=== PATIENT | female | born 1955 | race African-American/Black ===

== ENCOUNTER 2019-02-21 14:46 | Emergency (ER) | payer MEDICAID, OTHER ==
[~2019-02-21] VITALS: Ht 160 cm; Wt 89.4 kg
[2019-02-21 16:39] VITALS: BP 152/82
[2019-02-21] MEDS ORDERED: EPINEPHrine HCL 1 MG/1 ML AMP SC ONE (17:30)
== END 2019-02-21 17:47 | disposition home or self-care (01) ==
LOC: ER 14:46
DX: T78.40XA Allergy, unspecified, initial encounter (principal)
CPT/HCPCS: 96372; 99283; J0171

== ENCOUNTER 2019-05-03 11:55 | Inpatient (IN) | payer MEDICAID ==
[~2019-05-03] VITALS: Ht 160 cm; Wt 93.0 kg
[2019-05-03] MEDS ORDERED: methylPREDNISolone SOD SUCC 125 MG/2 ML VL ONE (12:18)
[2019-05-03] MEDS ORDERED: IPRATROPIUM BROM 0.5 MG/2.5ML INH SOL HHN ONE (12:30)
[2019-05-03] MEDS ORDERED: ALBUTEROL SULF 2.5 MG/0.5ML(0.5%) NEB SOLN HHN ONE (12:30)
[2019-05-03] MEDS ORDERED: ONDANSETRON HCL 4 MG/2 ML VIAL IV ONE (12:30)
[2019-05-03] MEDS ORDERED: methylPREDNISolone SOD SUCC 125 MG/2 ML VL IV ONE (12:45)
[2019-05-03 13:04] LABS: Basophils # (auto) 0.1 10 ^3/uL (0-0.2); Basophils % (auto) 1.4 % (0.0-2.0); Eosinophils # (auto) 0.1 10 ^3/uL (0-0.8); Eosinophils % (auto) 1.1 % (0.0-7.0); Hematocrit 46.3 % (36.0-46.0); Hemoglobin 15.4 g/dL (12.2-16.2); Lymphocytes # (auto) 1.3 10 ^3/uL (0.4-5.4); Lymphocytes % (auto) 19.8 % (10.0-50.0); Mean Corpuscular Hemoglobin 27.8 pg (28.0-32.0); Mean Corpuscular Hgb Conc. 33.4 g/dL (32.0-36.0); Mean Corpuscular Volume 83.2 fL (80.0-100.0); Monocytes # (auto) 0.7 10 ^3/uL (0-1.3); Monocytes % (auto) 11.3 % (0.0-12.0); Neutrophils # (auto) 4.4 10 ^3/uL (1.6-8.6); Neutrophils % (auto) 66.4 % (37.0-80.0); Nucleated Red Blood Cells % 0.1 %; Platelet Count (auto) 160 10^3/uL (140-450); Red Blood Cells 5.56 10^6/uL (4.0-5.20); Red Cell Distribution Width 15.4 % (11.8-14.3); White Blood Cell 6.6 10^3/uL (4.4-10.8)
[2019-05-03 13:24] LABS: Albumin 3.9 g/dL (3.4-5.0); Anion Gap 9 (5-15); BUN/Creatinine Ratio 16.8; Blood Urea Nitrogen 35 mg/dL (7-18); Calcium 9.6 mg/dL (8.5-10.1); Carbon Dioxide 25 mmol/L (21-32); Chloride 102 mmol/L (98-107); GFR African American 31 mL/min; GFR Non-African American 25 mL/min; Glucose 121 mg/dL (74-106); Magnesium 2.4 mg/dL (1.6-2.6); Potassium 3.8 mmol/L (3.5-5.1); Sodium 136 mmol/L (136-145)
[2019-05-03 13:27] LABS: Lactic Acid w/Reflex 2.6 mmol/L (0.4-2.0)
[2019-05-03 13:30] LABS: Alanine Aminotransferase 67 U/L (13-56); Alkaline Phosphatase 59 U/L (45-117); Aspartate Aminotransferase 45 U/L (15-37); Bilirubin, Total 0.8 mg/dL (0.2-1.0); Total Protein 8.3 g/dL (6.4-8.2)
[2019-05-03] MEDS ORDERED: cefTRIAXone 1GM/50ML D5W 50 ML IV ONE (13:45)
[2019-05-03] MEDS ORDERED: OSELTAMIVIR 75 MG CAP PO ONE (14:45)
[2019-05-03] MEDS ORDERED: NITROGLYCERIN 0.4 MG SL TAB SL PRN (14:45)
[2019-05-03] MEDS ORDERED: ACETAMINOPHEN 500 MG TAB PO PRN (14:45)
[2019-05-03] MEDS ORDERED: ALBUTEROL SULF 2.5 MG/0.5ML(0.5%) NEB SOLN NEB PRN (14:45)
[2019-05-03] MEDS ORDERED: traMADol HCL 50 MG TAB PO PRN (14:45)
[2019-05-03] MEDS ORDERED: MORPHINE SULF INJ 2 MG/ML SYRINGE 1ML IV PRN (14:45)
[2019-05-03] MEDS ORDERED: LACTULOSE 20Gm/30ML SOLN PO PRN (14:45)
[2019-05-03] MEDS ORDERED: PROMETHAZINE HCL 25 MG/ML 1ML IV PRN (14:45)
[2019-05-03] MEDS ORDERED: AMIODARONE HCL 150 MG in D5W 5% 100 ML IV ONE (15:15)
[2019-05-03] MEDS ORDERED: AMIODARONE HCL 900 MG in DEXTROSE 500 ML IV SCH ×2 (15:30→21:30)
[2019-05-03] MEDS: DOXYCYCLINE 100MG/250ML 250 ML IV SCH (15:54)
[2019-05-03] MEDS: SODIUM CHLORIDE 0.9% 1,000 ML IV SCH (16:12)
[2019-05-03] MEDS: FAMOTIDINE 20 MG TAB PO SCH (18:20)
[2019-05-03] MEDS: methylPREDNISolone SOD SUCC 40 MG/ML VL IV SCH (18:20)
[2019-05-03] MEDS: IPRATROPIUM BROM 0.5 MG/2.5ML INH SOL NEB SCH (18:22)
[2019-05-03] MEDS: ALBUTEROL SULF 2.5 MG/0.5ML(0.5%) NEB SOLN NEB SCH (18:22)
[2019-05-03] MEDS ORDERED: OSELTAMIVIR 75 MG CAP PO SCH (22:00)
[2019-05-03] MEDS: METOPROLOL TARTRATE 25 MG TAB PO SCH (22:37)
[2019-05-03] MEDS: ENOXAPARIN SOD 100 MG/1 ML SYRINGE SC SCH (22:37)
[2019-05-04] VITALS (10 sets, daily range): BP systolic 96–164; BP diastolic 46–93
[2019-05-04] MEDS: IPRATROPIUM BROM 0.5 MG/2.5ML INH SOL NEB SCH ×4 (00:07→18:26)
[2019-05-04] MEDS: ALBUTEROL SULF 2.5 MG/0.5ML(0.5%) NEB SOLN NEB SCH ×4 (00:07→18:26)
[2019-05-04] MEDS: methylPREDNISolone SOD SUCC 40 MG/ML VL IV SCH ×4 (00:42→17:53)
[2019-05-04 03:05] LABS: Urine Bacteria NONE SEEN /hpf (None Seen); Urine Blood Negative /uL (Negative); Urine Specific Gravity 1.011 (1.001-1.035); Urine WBC 1 /hpf (0 - 5)
[2019-05-04] MEDS ORDERED: INFLUENZA QUAD 2019-2020 0.5ml SYRG IM ONE (03:15)
[2019-05-04] MEDS ORDERED: PNEUMOCOCCAL VACC POLYS 25 MCG/0.5 ML VIAL IM ONE ×2 (03:15→03:45)
[2019-05-04 03:19] LABS: Barbiturate Scree,Urine NEGATIVE (NEGATIVE); Benzodiazephine Screen, Urine NEGATIVE (NEGATIVE); Cannabinoid Screen, Urine POSITIVE (NEGATIVE); Cocaine Screen, Urine NEGATIVE (NEGATIVE); Opiate Scree,Urine NEGATIVE (NEGATIVE); Phencyclidine Screen, Urine NEGATIVE (NEGATIVE)
[2019-05-04] MEDS ORDERED: ESCI10TA PO (03:21)
[2019-05-04] MEDS ORDERED: FLUT250M2 INH (03:21)
[2019-05-04 03:26] LABS: Amphetamine Screen, Urine NEGATIVE (NEGATIVE)
[2019-05-04] MEDS: DOXYCYCLINE 100MG/250ML 250 ML IV SCH ×2 (03:29→15:06)
[2019-05-04 06:12] LABS: BUN/Creatinine Ratio 18.9; Potassium 3.6 mmol/L (3.5-5.1)
[2019-05-04] MEDS: SODIUM CHLORIDE 0.9% 1,000 ML IV SCH ×2 (06:22→17:13)
[2019-05-04] MEDS: FAMOTIDINE 20 MG TAB PO SCH (09:04)
[2019-05-04] MEDS: ENOXAPARIN SOD 100 MG/1 ML SYRINGE SC SCH ×2 (09:08→22:06)
[2019-05-04] MEDS: METOPROLOL TARTRATE 25 MG TAB PO SCH ×2 (09:08→22:05)
[2019-05-04] MEDS ORDERED: ENOXAPARIN SOD 40 MG/0.4 ML SYRINGE SC SCH (10:00)
[2019-05-05] MEDS: methylPREDNISolone SOD SUCC 40 MG/ML VL IV SCH ×3 (00:05→12:00)
[2019-05-05] MEDS: IPRATROPIUM BROM 0.5 MG/2.5ML INH SOL NEB SCH ×3 (00:33→11:43)
[2019-05-05] MEDS: ALBUTEROL SULF 2.5 MG/0.5ML(0.5%) NEB SOLN NEB SCH ×3 (00:33→11:43)
[2019-05-05] MEDS: DOXYCYCLINE 100MG/250ML 250 ML IV SCH (02:49)
[2019-05-05 05:00] VITALS: BP 136/71
[2019-05-05 06:02] LABS: Basophils # (auto) 0 10 ^3/uL (0-0.2); Basophils % (auto) 0.2 % (0.0-2.0); Eosinophils # (auto) 0 10 ^3/uL (0-0.8); Hematocrit 39.8 % (36.0-46.0); Hemoglobin 13.5 g/dL (12.2-16.2); Lymphocytes # (auto) 0.7 10 ^3/uL (0.4-5.4); Lymphocytes % (auto) 9.2 % (10.0-50.0); Mean Corpuscular Hemoglobin 28.3 pg (28.0-32.0); Mean Corpuscular Hgb Conc. 33.8 g/dL (32.0-36.0); Mean Corpuscular Volume 83.7 fL (80.0-100.0); Monocytes # (auto) 0.7 10 ^3/uL (0-1.3); Monocytes % (auto) 8.6 % (0.0-12.0); Neutrophils # (auto) 6.3 10 ^3/uL (1.6-8.6); Nucleated Red Blood Cells % 0.2 %; Platelet Count (auto) 119 10^3/uL (140-450); Red Blood Cells 4.76 10^6/uL (4.0-5.20); Red Cell Distribution Width 15.1 % (11.8-14.3); White Blood Cell 7.7 10^3/uL (4.4-10.8)
[2019-05-05 06:27] LABS: Calcium 9.1 mg/dL (8.5-10.1); Potassium 4.4 mmol/L (3.5-5.1)
[2019-05-05 06:29] LABS: BUN/Creatinine Ratio 25.8
[2019-05-05] MEDS: SODIUM CHLORIDE 0.9% 1,000 ML IV SCH (06:35)
[2019-05-05 06:47] LABS: INR 1.05 (0.9-1.15); Partial Thromboplastin Time 27.6 sec (23.64-32.05)
[2019-05-05 08:00] VITALS: BP 140/72
[2019-05-05 08:43] VITALS: BP 121/70
[2019-05-05] MEDS: FAMOTIDINE 20 MG TAB PO SCH (09:19)
[2019-05-05] MEDS: METOPROLOL TARTRATE 25 MG TAB PO SCH (09:20)
[2019-05-05] MEDS: ENOXAPARIN SOD 100 MG/1 ML SYRINGE SC SCH (09:21)
[2019-05-05] MEDS ORDERED: PRED20TA2 PO (10:35)
[2019-05-05] MEDS ORDERED: MET25T PO (10:35)
[2019-05-05] MEDS ORDERED: ALB5IS NEB (10:35)
[2019-05-05] MEDS ORDERED: IPR002IS NEB (10:35)
[2019-05-05] MEDS ORDERED: APIX5TAB PO (10:35)
[2019-05-05] MEDS ORDERED: DOXY-346 PO (10:35)
[2019-05-05] MEDS ORDERED: FLUT250M2 INH (10:35)
[2019-05-05 11:06] VITALS: BP 121/70
[2019-05-05] MEDS ORDERED: INFLUENZA QUAD 2019-2020 0.5ml SYRG IM ONE (11:45)
[2019-05-05] MEDS ORDERED: PNEUMOCOCCAL VACC POLYS 25 MCG/0.5 ML VIAL IM ONE (11:45)
[2019-05-05 12:43] VITALS: BP 125/68
== END 2019-05-05 13:45 | disposition home or self-care (01) | DRG 201 ==
LOC: ER 11:55 → TELE 11:56 → TELE-EAST 05-04 01:16
PROVIDERS: ADMIT Internal Medicine; ATTEND Internal Medicine
DX: I48.0 Paroxysmal atrial fibrillation (principal); N17.0 Acute kidney failure with tubular necrosis; J20.9 Acute bronchitis, unspecified; J45.902 Unspecified asthma with status asthmaticus; E86.0 Dehydration; I12.9 Hypertensive chronic kidney disease with stage 1 through stage 4 chronic kidney disease, or unspecified chronic kidney disease; N18.3 Chronic kidney disease, stage 3 (moderate); M06.9 Rheumatoid arthritis, unspecified; Z86.73 Personal history of transient ischemic attack (TIA), and cerebral infarction without residual deficits; Z90.49 Acquired absence of other specified parts of digestive tract; Z82.49 Family history of ischemic heart disease and other diseases of the circulatory system; Z89.429 Acquired absence of other toe(s), unspecified side
CPT/HCPCS: 36415; 71045; 76775; 80048; 80053; 80307; 81001; 82550; 83605; 83735; 83880; 84443; 84484; 85025; 85610; 85652; 85730; 87040; 87804; 93005; 93306; 94640; 94644; 96365; 96375; 97163; 99291; G0378; J0696; J2405; J3490; J7060

== ENCOUNTER 2024-07-28 08:03 | Inpatient (IN) | payer MEDICARE, MEDICAID ==
[2024-07-28] VITALS (15 sets, daily range): BP systolic 152–167; BP diastolic 84–110; PULSE 108–153; RESP 16–22; TEMP 97.9–98.1; O2SAT 93–99
[~2024-07-28] VITALS: Ht 160 cm; Wt 103.5 kg
[~2024-07-28 08:03] MED LIST: ALB5IS NEB; APIX5TAB PO; DOXY-346 PO; ESCI10TA PO; FLUT250M2 INH; IPR002IS NEB; MET25T PO; PRED20TA2 PO
--- NOTE | 2024-07-28 08:10 | ECG ---
[facility] Test Date: 2024-07-28 Test Time: 08:06:01 Pat Name: PATY MALDONADO Department: ED Room: 0262D Gender: F [employer]: BHARATH : 1955 Requested By: LYNN MARIO Order Number: [id number] Reading MD: Tad Bagley Measurements Intervals [place] Rate: 120 P: 0 ME: 0 QRS: 19 QRSD: 80 T: 97 QT: 346 QTc: 489 Interpretive Statements Atrial fibrillation Abnormal inferior Q waves Nonspecific T abnormalities, lateral leads Borderline prolonged QT interval Electronically Signed On 07-31-2024 20:53:40 PDT by Tad Bagley Please click the below link to view image of tracing.
[2024-07-28] MEDS: IPRATROPIUM BROM 0.5 MG/2.5ML INH SOL NEB ONE ×2 (08:36→13:33)
[2024-07-28] MEDS: ALBUTEROL SULF 2.5 MG/0.5ML(0.5%) NEB SOLN NEB ONE ×2 (08:36→13:33)
[2024-07-28] MEDS: ALBUTEROL SULF 2.5 MG/0.5ML(0.5%) NEB SOLN ONE (08:37)
[2024-07-28] MEDS: IPRATROPIUM BROM 0.5 MG/2.5ML INH SOL ONE (08:37)
--- NOTE | 2024-07-28 08:51 | ED.PDOC ---
SOB-HPI HPI Comments 68 year old female presents to the ED via EMS with a chief complaint of shortness of breath onset few days. Patient states she has been experiencing cough for a few days, noticed it was worsening last night, woke up this morning experiencing shortness of breath, diarrhea, cough. Upon EMS arrival, patient's O2 sat was low 90s on RA, was given breathing treatment in route. Upon ED arrival, patient is using accessory muscle to breath, was given another br eathing treatment. PMHx asthma, CVA, HTN. Denies headache, dizziness, chest pain, nausea, vomiting, abdominal pain, fevers, chills. No other symptoms or modifying factors present at this time. 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 History: Denies all BOOK SEWER Hx Family History Family History: Reviewed,noncontributory to illness, No family hx of Cancer, No family hx of DM, No family hx of Heart hien, No family hx of HTN, No family hx ofKidney hien, No family hx of Liver hien Social History Smoker: Non-Smoker Alcohol: Denies ETOH Use Drugs: Denies Drug Use Lives In: Home Constitutional: denies: chills, diaphoresis, fatigue, fever, malaise, sweats, weakness, others EENTM: denies: blurred vision, double vision, ear bleeding, ear discharge, ear drainage, ear pain, ear ringing, eye pain, eye redness, hearing loss, mouth pain, mouth swelling, nasal discharge, nose bleeding, nose congestion, nose pain, photophobia, tearing, throat pain, throat swelling, voice changes, others Respiratory: reports: cough, shortness of breath; denies: hemoptysis, orthopnea, SOB at rest, SOB with excertion, stridor, wheezing, others Cardiovascular: denies: chest pain, dizzy spells, diaphoresis, Dyspnea on exe rtion, edema, irregular heart beat, left arm pain, lightheadedness, palpitations, PND, syncope, others Gastrointestinal: reports: diarrhea, others; denies: abdomen distended, abdominal pain, blood streaked bowels, constipated, dysphagia, difficulty swallowing, hematemesis, melena, nausea, poor appetite, poor fluid intake, rectal bleeding, rectal pain, vomiting Genitourinary: denies: abnormal vagina bleeding, burning, dyspareunia, dysuria, flank pain, frequency, hematuria, incontinence, pain, , vagina discharge, urgency, others Neurological: denies: dizziness, fainting, headache, left sided numbness, left sided weakness, numbness, paresthesia, pre-existing deficit, right sided numbness, right sided weakness, seizure, speech problems, tingling, tremors, weakness, others Musculoskeletal: denies: back pain, gout, joint pain, joint swelling, muscle pain, muscle stiffness, neck pain, others Integumetry: denies: bruises, change in color, change in hair/nails, dryness, laceration, lesions, lumps, rash, wounds, others Allergic/Immunocompromised: denies: Difficulty Healing, Frequent Infections, Hives, Itching, others Hematologic/Lymphatic: denies: anemia, blood clots, easy bleeding, easy bruisin g, swollen glands, others Endocrine: denies: excessive hunger, excessive sweating, excessive thirst, excessive urination, flushing, intolerance to cold, intolerance to heat, unexplained weight gain, unexplained weight loss, others Psychiatric: denies: anxiety, bipolar disorder, depression, hopeless, panic disorder, schizophrenia, sleepless, suicidal, others All Other Systems: Reviewed and Negative Physical Exam General Appearance: Moderate Distress, Normal HEENT: Normal ENT Inspection, Pharynx Normal, TMs Normal Neck: Full Range of Motion, Non-Tender, Normal, Normal Inspection Respiratory: Chest Non-Tender, Wheezing (bilateral expiratory ) Cardiovascular: No Edema, No JVD, No Murmur, No Gallop, Normal Peripheral Pulses, Regular Rate/Rhythm Breast Exam: Deferred Gastrointestinal: No Organomegaly, Non Tender, No Pulsatile Mass, Normal Bowel Sounds, Soft Genitalia: Deferred Pelvic: Deferred Rectal: Deferred Extremities: No calf tenderness, Normal capillary refill, Normal inspection, Normal range of motion, Non-tender, No pedal edema Musculoskeletal : Apperance: Normal Neurologic: Alert, seasoner hand II-XII nml as Tested, No Motor Deficits, Normal Affect, Normal Mood, No Sensory Deficits Cerebellar Function: Normal Reflexes: Normal Skin: Dry, Normal Color, Warm Lymphatic: No Adenopathy Was a procedure done? Was a procedure done?: No Differential Dx Differential Diagnosis: Asthma, CHF, COPD, Pneumonia X-Ray, Labs, Meds, VS Vital Signs Date Time Temp Pulse Resp B/P (MAP) Pulse Ox O2 Delivery O2 Flow Rate FiO2 07/28/24 10:52 109 21 161/107 (125) 95 07/28/24 10:35 120 17 161/107 07/28/24 10:21 116 161/107 Nasal BiPAP Mask 30 07/28/24 09:56 148 24 128/85 07/28/24 08:49 152 159/90 Nasal BiPAP Mask 30 07/28/24 08:44 98 Nasal Cannula* 4 36 07/28/24 08:37 26 98 Nasal Cannula* 2 28 07/28/24 08:33 138 99 Nasal Cannula* 4 36 07/28/24 08:33 98.1 116 31 159/90 (113) 97 98.1 07/28/24 08:10 98.1 125 24 128/65 (86) 100 98.1 07/28/24 08:10 24 99 Nasal Cannula* 2 28 07/28/24 08:06 120 Lab Test 07/28/24 10:15 07/28/24 09:22 07/28/24 08:35 Range/Units Blood Gas Specimen Type Arterial Blood Gas Sample Site Left radial Blood Gas Patient Temperature 37.0 Arterial Blood Date Drawn [id number] Arterial Blood pH 7.396 7.350-7.450 Arterial Blood Partial Pressure CO2 53.3 H 32.0-45.0 mmHg Arterial Blood Partial Pressure O2 90.4 83.0-108.0 mmHg Arterial Blood HCO3 32.0 H 21.0-28.0 mmol/L Arterial Blood Oxygen Saturation 95.3 94.0-98.0 % Arterial Blood Base Excess 5.8 H -2.0-3.0 mmol/L Arterial Blood Oxyhemoglobin 93.6 L 94.0-98.0 % Arterial Blood Carboxyhemoglobin 1.5 0.5-1.5 % Arterial Blood Methemoglobin 0.3 0.0-1.5 % Eamon Test Yes Blood Gas Total Hemoglobin 13.30 12.0-16.0 g/dL Blood Gas Set Respiration Rate 12.0 Blood Gas Modality Mask - bipap Blood Gas Spontaneous Rate 24 FiO2 % 30.0 Blood Gas EPAP 5 Blood Gas IPAP 12 Troponin I High Sensitivity 101 *H 104 *H </=34 ng/L White Blood Count 4.9 4.4-10.8 10^3/uL Red Blood Count 4.68 4.0-5.20 10^6/uL Hemoglobin 14.0 12.2-16.2 g/dL Hematocrit 41.9 36.0-46.0 % Mean Corpuscular Volume 89.4 80.0-100.0 fL Mean Corpuscular Hemoglobin 29.8 28.0-32.0 pg Mean Corpuscular Hemoglobin Concent 33.3 32.0-36.0 g/dL Red Cell Distribution Width 17.1 H 11.8-14.3 % Platelet Count 165 140-450 10^3/uL Mean Platelet Volume 10.8 6.9-10.8 fL Neutrophils (%) (Auto) 85.5 H 37.0-80.0 % Lymphocytes (%) (Auto) 5.4 L 10.0-50.0 % Monocytes (%) (Auto) 9.1 0.0-12.0 % Eosinophils (%) (Auto) 0.0 0.0-7.0 % Basophils (%) (Auto) 0.0 0.0-2.0 % Neutrophils # (Auto) 4.2 1.6-8.6 10 ^3/uL Lymphocytes # (Auto) 0.3 L 0.4-5.4 10 ^3/uL Monocytes # (Auto) 0.4 0-1.3 10 ^3/uL Eosinophils # (Auto) 0 0-0.8 10 ^3/uL Basophils # (Auto) 0 0-0.2 10 ^3/uL Nucleated Red Blood Cells 0.0 % Sodium Level 142 136-145 mmol/L Potassium Level 3.4 L 3.5-5.1 mmol/L Chloride Level 100 98-107 mmol/L Carbon Dioxide Level 34 H 20-31 mmol/L Anion Gap 8 5-15 Blood Urea Nitrogen 22 9-23 mg/dL Creatinine 1.62 H 0.550-1.02 mg/dL Glomerular Filtration Rate Calc 34 >90 mL/min BUN/Creatinine Ratio 13.6 10.0-20.0 Serum Glucose 139 H 74-106 mg/dL Lactic Acid Level 1.5 0.4-2.0 mmol/L Calcium Level 10.8 H 8.7-10.4 mg/dL B-Type Natriuretic Peptide 164.07 0-100 pg/mL Current Medications Medications (Trade) Dose Ordered Sig/Adam Route Start Time Stop Time Status Last Admin Albuterol (Ventolin Medneb) 5 mg ONCE ONCE NEB 07/28/24 08:30 07/28/24 08:31 DC 07/28/24 08:36 Ipratropium [place] (Atrovent Medneb) 1 mg ONCE ONCE NEB 07/28/24 08:30 07/28/24 08:31 DC 07/28/24 08:36 Morphine Sulfate 4 mg ONCE ONCE IV 07/28/24 10:00 07/28/24 10:01 DC 07/28/24 09:56 Ondansetron HCl (Zofran) 4 mg ONCE ONCE IV 07/28/24 10:00 07/28/24 10:01 DC 07/28/24 09:55 [place] [id number] Ph: [phone] DIAGNOSTIC IMAGING Diagnostic Imaging Report : [id number] Signed PATIENT: PATY MALDONADO ACCT: [id number] UNIT: [id number] : 1955 LOC: ER ROOM / BED: / AGE / SEX: 68 / F ADM STATUS: REG ER SERVICE 5 ORDERING PHYSICIAN: LYNN SANTO MD PROCEDURE(s): CXRP - CHEST PORTABLE REASON: sob ORDER NUMBER(s): [id number], ACCESSION NUMBER(s): [id number] CHEST RADIOGRAPH Indication: sob Technique: Single frontal view of the chest was obtained Comparison: None FINDINGS: Lines and Tubes: None Lungs: No focal consolidation. Pleura: No effusion. No pneumothorax. Cardiomediastinal contours: Unremarkable Bones: No acute osseous abnormality. IMPRESSION: 1. No acute cardiopulmonary disease. ATED BY: ISIS TRIPLETT MD DICTATED DATE/TIME: 07/28/24958 SIGNED BY: ISIS TRIPLETT MD SIGNED DATE/TIME: 07/28/24958 CC: Time of 1ST Reevaluation: 09:00 Reevaluation 1ST: Unchanged Patient Education/Counseling: Diagnosis, Treatment, Prognosis Family Education/Counseling: No Family Present Sepsis Sepsis Reasesment Focused Exam Orders: Laboratory Tests 07/28/24 08:35: Lactic Acid Level 1.5 Departure 1 Departure Time of Disposition: 11:16 (Patient presented with acute shortness of breath concerning for acute on chronic COPD Exacerbation, Pneumonia, ACS, CHF, Pneumothorax. Less likely PE, Dissection. Data: 1. I ordered and reviewed the result of at least 3 labs including a CBC, BMP, and Troponin. 2. I independently interpreted the following tests: Chest X-ray shows benign chest .Risk:This patient has a high risk of morbidity due to further diagnostic testing or treatment and may suffer from respiratory or cardiac etiology . Workup reveals a likely COPD Exacerbation and patient should be admitted for further workup. and possible expert consultation.) Impression: Primary Impression: Acute and chronic respiratory failure Additional Impressions: COPD exacerbation Shortness of breath Disposition: ADMITTED INPATIENT Admit to: Tele Condition: Guarded Critical Care Note Critical Care Time?: Yes Critical care comment: Shortness of breath Authorized and Performed by: Lynn Santo MD Total critical care time: Approximately _39 minutes Due to a high probability of clinically significant, life threatening deterioration, the patient required my highest level of preparedness to intervene emergently and I personally spent this critical care time directly and personally managing the patient. This critical care time included obtaining a history; examining the patient; pulse oximetry; ordering and review of studies; arranging urgent treatment with development of a management plan; evaluation of patient's response to treatment; frequent reassessment; and, discussions with other providers. This critical care time was performed to assess and manage the high probability of imminent, life-threatening deterioration that could result in multi-organ failure. It was exclusive of separately billable procedures and treating other patients and teaching time. Please see my other sections and the rest of the note for further information on patient assessment and treatment. Stability Stability form required: No Heart Score Heart Score: Heart Score Response (Comments) Value History Slightly Suspicious 0 EKG Repolarization Disturb 1 Age >65 2 Risk Factors >3 or Hx ASHD 2 Troponin >3 x's Normal limit 2 Total 7 I personally scribed for LYNN SANTO MD ([email or web address]) on 07/28/24 at 08:51. Electronically submitted by Azul Martinez ([email or web address]). I personally scribed for LYNN SANTO MD ([email or web address]) on 07/28/24 at 10:18. Electronically submitted by Azul Martinez ([email or web address]). LYNN SANTO MD Jul 28, 2024 08:51
[2024-07-28 08:52] LABS: Basophils # (auto) 0 10 ^3/uL (0-0.2); Eosinophils # (auto) 0 10 ^3/uL (0-0.8); Hematocrit 41.9 % (36.0-46.0); Lymphocytes # (auto) 0.3 10 ^3/uL (0.4-5.4); Lymphocytes % (auto) 5.4 % (10.0-50.0); Mean Corpuscular Hemoglobin 29.8 pg (28.0-32.0); Mean Corpuscular Hgb Conc. 33.3 g/dL (32.0-36.0); Mean Corpuscular Volume 89.4 fL (80.0-100.0); Monocytes # (auto) 0.4 10 ^3/uL (0-1.3); Monocytes % (auto) 9.1 % (0.0-12.0); Neutrophils # (auto) 4.2 10 ^3/uL (1.6-8.6); Neutrophils % (auto) 85.5 % (37.0-80.0); Platelet Count (auto) 165 10^3/uL (140-450); Red Blood Cells 4.68 10^6/uL (4.0-5.20); Red Cell Distribution Width 17.1 % (11.8-14.3); White Blood Cell 4.9 10^3/uL (4.4-10.8)
[2024-07-28 09:06] LABS: Chloride 100 mmol/L (98-107); Sodium 142 mmol/L (136-145)
[2024-07-28 09:07] LABS: Anion Gap 8 (5-15); Carbon Dioxide 34 mmol/L (20-31); Potassium 3.4 mmol/L (3.5-5.1)
[2024-07-28 09:09] LABS: Calcium 10.8 mg/dL (8.7-10.4)
[2024-07-28 09:12] LABS: BUN/Creatinine Ratio 13.6 (10.0-20.0); Blood Urea Nitrogen 22 mg/dL (9-23)
[2024-07-28 09:13] LABS: Glucose 139 mg/dL (74-106)
[2024-07-28] MEDS: ONDANSETRON HCL 4 MG/2 ML VIAL IV ONE (09:55)
[2024-07-28] MEDS: MORPHINE SULFATE 4 MG/ML SYR/VIAL IV ONE (09:56)
--- NOTE | 2024-07-28 10:01 | DVH ---
CHEST RADIOGRAPH Indication: sob Technique: Single frontal view of the chest was obtained Comparison: None FINDINGS: Lines and Tubes: None Lungs: No focal consolidation. Pleura: No effusion. No pneumothorax. Cardiomediastinal contours: Unremarkable Bones: No acute osseous abnormality. IMPRESSION: 1. No acute cardiopulmonary disease.
[2024-07-28 10:20] LABS: Base Excess 5.8 mmol/L (-2.0-3.0)
[2024-07-28] MEDS: methylPREDNISolone SOD SUCC 125 MG/2 ML VL IV ONE (11:36)
[2024-07-28] MEDS: AZITHROMYCIN 250 MG TAB PO ONE (11:36)
[2024-07-28] MEDS: AMIODARONE 360mg/200mL PREMIX 200 ML IV ONE (11:37)
[2024-07-28] MEDS: AMIODARONE BOLUS KIT 100 ML IV ONE (11:37)
[2024-07-28] MEDS: FUROSEMIDE 40 MG/4 ML VIAL IV ONE (12:45)
[2024-07-28] MEDS: MAGNESIUM SULFATE 1GM/100ML 100 ML IV SCH (12:45)
[2024-07-28] MEDS ORDERED: FURO40TA4 PO (13:29)
[2024-07-28] MEDS ORDERED: ESCI1TAB37 PO (13:29)
[2024-07-28] MEDS ORDERED: AMIO200T13 PO (13:29)
[2024-07-28] MEDS ORDERED: UPAD15TA PO (13:29)
[2024-07-28] MEDS ORDERED: ATOR-47 PO (13:29)
[2024-07-28] MEDS ORDERED: MET50T PO (13:29)
[2024-07-28] MEDS ORDERED: ACETAMINOPHEN 325 MG TAB PO PRN (13:30)
[2024-07-28] MEDS ORDERED: NITROGLYCERIN 0.4 MG SL TAB SL PRN (13:30)
[2024-07-28] MEDS ORDERED: MORPHINE SULFATE INJ 2 MG/ml SYRG IV PRN (13:30)
[2024-07-28] MEDS ORDERED: ONDANSETRON HCL 4 MG/2 ML VIAL IV PRN (13:30)
[2024-07-28] MEDS ORDERED: DOCUSATE SOD 100 MG CAP PO PRN (13:30)
[2024-07-28] MEDS: SODIUM CHLOR 0.9% PF (SALINE LOCK) 10ML VIAL/SYR IV SCH (13:47)
[2024-07-28] MEDS ORDERED: DEXTROSE (50%) 50ML SYRG IV PRN (14:00)
--- NOTE | 2024-07-28 14:03 | DVHHP2 ---
History of Present Illness Reason for Visit: Shortness of breath History of Present Illness Mell Salinas is a 68-year-old female with past medial history of COPD, home oxygen, asthma, atrial fibrillation, CVA December 2023, hypertension, and hyperlipidemia, who came to the hospital for shortness of breath. Patient had a stroke in December of 2023. She states since then she has been hospitalized multiple times. She states 3 times in the last couple of months for difficulty breathing. Patient states she does follow outpatient with a solutions architect consultant, and she is compliant with her medications, but she has not been able to get her breathing better. On assessment patient has audible rales, with shortness of breath, difficulty with speaking, and accessory muscle use. 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) Smoke: No ALCOHOL: none Drugs: None Lives: with Family Domestic Violence: Neg Review of Systems Constitutional: No: Fever, Chills, Sweats, Weakness, Malaise, Other Eyes: No: Pain, Vision change, Conjunctivae inflammation, Eyelid inflammation, Other, Redness ENT: No: Ear pain, Ear discharge, Nose pain, Nose discharge, Nose congestion, Mouth pain, Mouth swelling, Throat pain, Throat swelling, Other Respiratory: Cough, Shortness of breath, SOB with excertion, Wheezing; No: Dry, Hemoptysis, Pleuritic Pain, Sputum, Wheezing, Other Cardiovascular: No: Chest Pain, Palpitations, Orthopnea, Paroxysmal Noc. Dyspnea, Edema, Lt Headedness, Other Gastrointestinal: No: Nausea, Vomiting, Abdominal Pain, Diarrhea, Constipation, Melena, Hematochezia, Other Genitourinary: No Dysuria, No Frequency, No Incontinence, No Hematuria, No Retention, No Other Musculoskeletal: No: other, neck pain, shoulder pain, arm pain, back pain, hand pain, leg pain, foot pain Skin: No: Rash, Lesions, Jaundice, Bruising, Other Neurological: No: Weakness, Numbness, Incoordination, Change in speech, Confusion, Seizures, Other Allergies: Coded Allergies: NO KNOWN ALLERGIES (Unverified , 02/21/19) Medications Current Medications Medications Dose Ordered Sig/Adam Route Start Time Stop Time Status Last Admin Dose Admin Sodium Chloride 10 ml Q8HR IV 07/28/24 14:00 Acetaminophen/ Hydrocodone Bitart 1 tab Q4HP PRN PO 07/28/24 13:30 Ondansetron HCl 4 mg Q4HP PRN IV 07/28/24 13:30 Docusate Sodium 100 mg BIDPRN PRN PO 07/28/24 13:30 Acetaminophen 650 mg Q6HP PRN PO 07/28/24 13:30 Nitroglycerin 0.4 mg Q5MINP PRN SL 07/28/24 13:30 Morphine Sulfate 2 mg Q30M PRN IV 07/28/24 13:30 Apixaban 5 mg BID PO 07/28/24 22:00 UNV Patient Own Medication 1 puff BID INH 07/28/24 22:00 UNV Amiodarone HCl 200 mg DAILY PO 07/29/24 10:00 Metoprolol Tartrate 50 mg BID PO 07/28/24 22:00 UNV Patient Own Medication 1 tab HS PO 07/28/24 22:00 UNV Patient Own Medication 1 tab DAILY PO 07/29/24 10:00 UNV Exam Vital Signs Vital Signs Date Time Temp Pulse Resp B/P (MAP) Pulse Ox O2 Delivery O2 Flow Rate FiO2 07/28/24 13:33 108 22 97 07/28/24 13:33 Nasal Cannula 2.0 07/28/24 13:33 28 07/28/24 12:48 98.4 168/91 (116) 98.4 General Appearance: Alert, Oriented X3, Cooperative, moderate distress HEENT: Atraumatic, PERRLA Respiratory: Other (Rales bilateral upper lobes, diminished breath sounds bilateral lower) Cardiovascular: Other (atrial fibrillation with RVR) Abdominal: Normal bowel sounds, Soft, No tenderness, No hepatospenomegaly Extremities: No clubbing, No cyanosis, No edema, Normal pulses, No tenderness/swelling Skin: No rashes, No breakdown, No significant lesion Neuro: Normal gait, Normal speech, Strength at 5/5 X4 ext, Normal tone Psych/Mental Status: Mental status NL, Mood NL Labs/Xrays Labs Test 07/28/24 11:09 07/28/24 10:15 07/28/24 08:35 Range/Units Troponin I High Sensitivity 123 *H </=34 ng/L Blood Gas Specimen Type Arterial Blood Gas Sample Site Left radial Blood Gas Patient Temperature 37.0 Arterial Blood Date Drawn [id number] Arterial Blood pH 7.396 7.350-7.450 Arterial Blood Partial Pressure CO2 53.3 H 32.0-45.0 mmHg Arterial Blood Partial Pressure O2 90.4 83.0-108.0 mmHg Arterial Blood HCO3 32.0 H 21.0-28.0 mmol/L Arterial Blood Oxygen Saturation 95.3 94.0-98.0 % Arterial Blood Base Excess 5.8 H -2.0-3.0 mmol/L Arterial Blood Oxyhemoglobin 93.6 L 94.0-98.0 % Arterial Blood Carboxyhemoglobin 1.5 0.5-1.5 % Arterial Blood Methemoglobin 0.3 0.0-1.5 % Eamon Test Yes Blood Gas Total Hemoglobin 13.30 12.0-16.0 g/dL Blood Gas Set Respiration Rate 12.0 Blood Gas Modality Mask - bipap Blood Gas Spontaneous Rate 24 FiO2 % 30.0 Blood Gas EPAP 5 Blood Gas IPAP 12 White Blood Count 4.9 4.4-10.8 10^3/uL Red Blood Count 4.68 4.0-5.20 10^6/uL Hemoglobin 14.0 12.2-16.2 g/dL Hematocrit 41.9 36.0-46.0 % Mean Corpuscular Volume 89.4 80.0-100.0 fL Mean Corpuscular Hemoglobin 29.8 28.0-32.0 pg Mean Corpuscular Hemoglobin Concent 33.3 32.0-36.0 g/dL Red Cell Distribution Width 17.1 H 11.8-14.3 % Platelet Count 165 140-450 10^3/uL Mean Platelet Volume 10.8 6.9-10.8 fL Neutrophils (%) (Auto) 85.5 H 37.0-80.0 % Lymphocytes (%) (Auto) 5.4 L 10.0-50.0 % Monocytes (%) (Auto) 9.1 0.0-12.0 % Eosinophils (%) (Auto) 0.0 0.0-7.0 % Basophils (%) (Auto) 0.0 0.0-2.0 % Neutrophils # (Auto) 4.2 1.6-8.6 10 ^3/uL Lymphocytes # (Auto) 0.3 L 0.4-5.4 10 ^3/uL Monocytes # (Auto) 0.4 0-1.3 10 ^3/uL Eosinophils # (Auto) 0 0-0.8 10 ^3/uL Basophils # (Auto) 0 0-0.2 10 ^3/uL Nucleated Red Blood Cells 0.0 % Sodium Level 142 136-145 mmol/L Potassium Level 3.4 L 3.5-5.1 mmol/L Chloride Level 100 98-107 mmol/L Carbon Dioxide Level 34 H 20-31 mmol/L Anion Gap 8 5-15 Blood Urea Nitrogen 22 9-23 mg/dL Creatinine 1.62 H 0.550-1.02 mg/dL Glomerular Filtration Rate Calc 34 >90 mL/min BUN/Creatinine Ratio 13.6 10.0-20.0 Serum Glucose 139 H 74-106 mg/dL Lactic Acid Level 1.5 0.4-2.0 mmol/L Calcium Level 10.8 H 8.7-10.4 mg/dL B-Type Natriuretic Peptide 164.07 0-100 pg/mL CHEST RADIOGRAPH FINDINGS: Lines and Tubes: None Lungs: No focal consolidation. Pleura: No effusion. No pneumothorax. Cardiomediastinal contours: Unremarkable Bones: No acute osseous abnormality. IMPRESSION: 1. No acute cardiopulmonary disease. Assessment/Plan Assessment/Plan Assessment: Acute hypoxic respiratory failure, COPD exacerbation, Elevated troponin, Hyperglycemia, Atrial fibrillation with RVR, Hyperlipidemia, Hypertension, Plan: Admit to EDER, BiPAP as needed, Supplemental oxygen as needed, IV Lasix, Breathing treatments around the clock, IV steroids, IV antibiotics, IV amiodarone, Home medications reconciled, Plan discussed with: Patient My Orders Orders - CATALINA GARZA Procedure Category Date Status Time Admit ADMIT 07/28/24 Transmitted 13:21 Code Status CODE 07/28/24 Transmitted 13:21 Sodium Chloride Lock PHA 07/28/24 In Process (Saline Lock Ns) 14:00 Hydrocodone-Acet PHA 07/28/24 In Process 5/325mg Tab ([place] 13:30 Ondansetron Hcl PHA 07/28/24 Logged (Zofran) 13:30 Docusate Sodium PHA 07/28/24 In Process Capsule (Colace 13:30 Complete Blood Count LAB 07/29/24 Verified 04:00 Comprehensive LAB 07/29/24 Verified Metabolic Panel 04:00 Condition: Critical ANDREAS 07/28/24 In Process 13:21 Acetaminophen Tablet PHA 07/28/24 In Process (Tylenol Tablet) 13:30 Nitroglycerin PHA 07/28/24 In Process Sublingual (Ntrostat 13:30 Morphine Sulfate PHA 07/28/24 Logged Injection 13:30 Stat Ekg For Chest ANDREAS 07/28/24 In Process Pain 13:21 Notify Md Of Changes [facility] 07/28/24 In Process From Base 13:21 Psychological Operations For [facility] 07/28/24 In Process 24 Hours 13:21 Emergency Dysrhythmia ANDREAS 07/28/24 In Process Protocol 13:21 Rhythm Strips Once [facility] 07/28/24 In Process Every Shift 13:21 Oxygen By Nasal RT 07/28/24 Transmitted Cannula 13:21 Apixaban (Eliquis) PHA 07/28/24 Logged 22:00 (NF) PHA 07/28/24 Logged Fluticasone-Salmeterol 22:00 Amiodarone Tablet PHA 07/29/24 Logged (Cordarone Tablet) 10:00 Metoprolol Tartrate PHA 07/28/24 Logged Tablet (Lopressor Ta 22:00 (Nf) Atorvastatin PHA 07/28/24 Logged Calcium 22:00 (Nf) Escitalopram PHA 07/29/24 Logged Oxalate 10:00 Albuterol Medneb PHA 07/28/24 Transmitted (Ventolin Medneb) 14:00 Ipratropium Medneb PHA 07/28/24 Transmitted (Atrovent Medneb) 14:00 Methylprednisolone PHA 07/28/24 Transmitted Sod Succ (Solu Medrol 22:00 Azithromycin 500mg/ PHA 07/29/24 Transmitted 250ml (Zithromax 50 10:00 Ceftriaxone Ivpb PHA 07/29/24 Transmitted Rocephin 09:00 Ceftriaxone Ivpb PHA 07/28/24 Transmitted Rocephin 13:45 Date of Service: Jul 28, 2024 Billing Provider: CATALINA GARZA Common Visit Codes: [id number] INP/OBS CARE (HIGH) CATALINA GARZA Jul 28, 2024 14:03
[2024-07-28] MEDS: cefTRIAXone 1GM/50ML D5W 50 ML IV ONE (14:10)
[2024-07-28] MEDS: cloNIDine HCL 0.1 MG TAB PO ONE (16:28)
[2024-07-28] MEDS: InsuLIN REG 1unit/0.01ml Soln (100units/ml) SC SCH ×2 (17:32→22:04)
[2024-07-28] MEDS: ACCU-CHEK COMFORT CURVE STRIP VI SCH (17:33)
[2024-07-28] MEDS: AMIODARONE 360mg/200mL PREMIX 200 ML IV SCH (17:33)
[2024-07-28] MEDS: ALBUTEROL SULF 2.5 MG/0.5ML(0.5%) NEB SOLN NEB SCH (17:40)
[2024-07-28] MEDS: IPRATROPIUM BROM 0.5 MG/2.5ML INH SOL NEB SCH (17:40)
[2024-07-28] MEDS: hydrALAZINE HCL 20 MG/ML VL IV PRN (18:03)
[2024-07-28] MEDS: methylPREDNISolone SOD SUCC 40 MG/ML VL IV SCH (21:51)
[2024-07-28] MEDS: APIXABAN 5 MG TAB PO SCH (21:54)
[2024-07-28] MEDS: ATORVASTATIN 20 MG TAB PO SCH (21:54)
[2024-07-28] MEDS: HYDROcodone-ACET 5/325MG TAB PO PRN (21:55)
[2024-07-28] MEDS: METOPROLOL TARTRATE 50 MG TAB PO SCH (21:57)
[2024-07-28] MEDS: BUDESONIDE (INHALATION) 0.5 MG/2 ML NEB NEB SCH (22:15)
[2024-07-29] VITALS (37 sets, daily range): BP systolic 102–176; BP diastolic 52–107; PULSE 77–133; RESP 14–24; TEMP 97.1–98.5; O2SAT 88–99
[2024-07-29 05:17] LABS: Basophils # (auto) 0 10 ^3/uL (0-0.2); Basophils % (auto) 0.1 % (0.0-2.0); Eosinophils # (auto) 0 10 ^3/uL (0-0.8); Hematocrit 38.9 % (36.0-46.0); Hemoglobin 12.7 g/dL (12.2-16.2); Lymphocytes # (auto) 0.2 10 ^3/uL (0.4-5.4); Lymphocytes % (auto) 3.1 % (10.0-50.0); Mean Corpuscular Hemoglobin 29.2 pg (28.0-32.0); Mean Corpuscular Hgb Conc. 32.6 g/dL (32.0-36.0); Mean Corpuscular Volume 89.5 fL (80.0-100.0); Monocytes # (auto) 0.5 10 ^3/uL (0-1.3); Neutrophils # (auto) 5.9 10 ^3/uL (1.6-8.6); Neutrophils % (auto) 88.8 % (37.0-80.0); Nucleated Red Blood Cells % 0.1 %; Platelet Count (auto) 150 10^3/uL (140-450); Red Blood Cells 4.35 10^6/uL (4.0-5.20); Red Cell Distribution Width 17.2 % (11.8-14.3); White Blood Cell 6.6 10^3/uL (4.4-10.8)
[2024-07-29 05:35] LABS: Alanine Aminotransferase 36 U/L (7-40); Albumin 4.6 g/dL (3.2-4.8); Alkaline Phosphatase 55 U/L (46-116); Anion Gap 8 (5-15); BUN/Creatinine Ratio 13.5 (10.0-20.0); Bilirubin, Total 0.4 mg/dL (0.2-1.0); Blood Urea Nitrogen 21 mg/dL (9-23); Calcium 10.3 mg/dL (8.7-10.4); Sodium 138 mmol/L (136-145)
[2024-07-29 05:36] LABS: Aspartate Aminotransferase 43 U/L (13-40); Carbon Dioxide 34 mmol/L (20-31); Chloride 96 mmol/L (98-107); Glucose 137 mg/dL (74-106); Potassium 3.3 mmol/L (3.5-5.1)
[2024-07-29] MEDS: cefTRIAXone 1GM/50ML D5W 50 ML IV SCH (09:55)
[2024-07-29] MEDS: AMIODARONE HCL 200 MG TAB PO SCH (09:56)
[2024-07-29] MEDS: AZITHROMYCIN 500MG/ 250ML 250 ML IV SCH (09:56)
[2024-07-29] MEDS: CITALOPRAM HYDROBR 20 MG TAB PO SCH (10:00)
[2024-07-29] MEDS: MORPHINE SULFATE INJ 2 MG/ml SYRG IV ONE (11:58)
[2024-07-29] MEDS: MORPHINE SULFATE 4 MG/ML SYR/VIAL IV ONE (12:32)
[2024-07-29] MEDS: MORPHINE SULFATE 4 MG/ML SYR/VIAL ONE (12:32)
--- NOTE | 2024-07-29 14:28 | DVHPN2 ---
Progress Note Date Seen: Jul 29, 2024 Medical Necessity Reason Pt with a Central, PICC or Fol: Yes The following are medically ne: Luis Catheter Reason for luis catheter: Strict I&O Subjective Patient reports: No new complaints Review of Systems: HEENT:Normal, CVS:Normal, RESPIRATORY:Normal, GI:Normal, :Normal, MSK:Normal, NEURO:Normal Objective vital signs Vital Sign Date Time Temp Pulse Resp B/P (MAP) Pulse Ox O2 Delivery O2 Flow Rate FiO2 07/29/24 14:10 77 140/106 99 Facial BiPAP Mask 30 07/29/24 12:32 20 07/29/24 12:00 2 07/29/24 04:00 98.3 98.3 Total Intake and Output 07/28/24 07/28/24 07/29/24 15:00 23:00 07:00 Intake Total 483.32 ml 166.29 ml 583.28 ml Output Total 775 ml Balance 483.32 ml 166.29 ml -191.72 ml medications Current Medications Medications Dose Ordered Sig/Adam Route Start Time Stop Time Status Last Admin Dose Admin Sodium Chloride 10 ml Q8HR IV 07/28/24 14:00 07/29/24 06:13 10 ML Acetaminophen/ Hydrocodone Bitart 1 tab Q4HP PRN PO 07/28/24 13:30 07/29/24 08:53 1 TAB Ondansetron HCl 4 mg Q4HP PRN IV 07/28/24 13:30 Docusate Sodium 100 mg BIDPRN PRN PO 07/28/24 13:30 Acetaminophen 650 mg Q6HP PRN PO 07/28/24 13:30 Nitroglycerin 0.4 mg Q5MINP PRN SL 07/28/24 13:30 Morphine Sulfate 2 mg Q30M PRN IV 07/28/24 13:30 Apixaban 5 mg BID PO 07/28/24 22:00 07/29/24 09:57 5 MG Budesonide 0.5 mg BID NEB 07/28/24 22:00 07/29/24 06:12 0.5 MG Amiodarone HCl 200 mg DAILY PO 07/29/24 10:00 07/29/24 09:56 200 MG Metoprolol Tartrate 50 mg BID PO 07/28/24 22:00 07/29/24 09:56 50 MG Atorvastatin Calcium 80 mg HS PO 07/28/24 22:00 07/28/24 21:54 80 MG Citalopram Hydrobromide 40 mg DAILY PO 07/29/24 10:00 07/29/24 10:00 40 MG Albuterol 2.5 mg Q4HWA NEB 07/28/24 14:00 07/29/24 14:09 2.5 MG Ipratropium [place] 0.5 mg Q4HWA [facility] 07/28/24 14:00 07/29/24 14:09 0.5 MG Methylprednisolone Sodium Succinate 40 mg BID IV 07/28/24 22:00 07/29/24 09:55 40 MG Azithromycin 250 ml @ 125 mls/hr DAILY IV 07/29/24 10:00 07/29/24 09:56 125 MLS/HR Ceftriaxone Sodium 50 ml @ 100 mls/hr DAILY@09 IV 07/29/24 09:00 07/29/24 09:55 100 MLS/HR Diagnostic Test (Pha) 1 strip ACHS 07/28/24 17:00 07/29/24 11:30 1 STRIP Insulin Human Regular HS SC 07/28/24 22:00 07/28/24 22:04 2 UNITS Insulin Human Regular AC SC 07/28/24 17:00 07/29/24 12:28 3 UNITS Dextrose 50 ml UD PRN IV 07/28/24 14:00 Hydralazine HCl 10 mg Q6HP PRN IV 07/28/24 16:00 07/28/24 18:03 10 MG Albuterol 2.5 mg Q4HPRN PRN NEB 07/29/24 12:45 Ipratropium [place] 0.5 mg Q4HPRN PRN NEB 07/29/24 12:45 Examination: GENERAL:Normal, HEENT:Normal, NECK:Normal, LUNGS:Normal, LUNGS:Abnormal (on bipap), CVS:Normal, ABDOMEN:Normal, MSK:Normal, SKIN:Normal, NEURO:Normal, :Normal laboratory and microbiology Laboratory Tests 07/29/24 04:59 Test 07/29/24 04:59 Range/Units Serum Glucose 137 H 74-106 mg/dL Microbiology Date/Time Source Procedure Growth Status 07/28/24 08:46 Blood Blood Culture - Preliminary NO GROWTH AFTER 24 HOURS OF INCUBATION. Resulted Problem List/Assessment/Plan Problem List/Assessment/Plan #1 acute on chronic resp failure: cont bipap, wean as tolerated, monitor abg #2 ?pneumonia- gram positive/neg: iv antibiotics #3 htn #4 dm: ssi #5 a fib with rvr with secondary hypercoagulable state: on amiodarone, xarelto #6 morbid obesity #7 acute on chronic systolic/diastolic heart failure: lasix iv #8 ckd stage 3 Plan discussed with: Patient My Orders My Orders Orders - KEILA FORD MD Procedure Category Date Status Time Albuterol Medneb PHA 07/29/24 In Process (Ventolin Medneb) 12:45 Ipratropium Medneb PHA 07/29/24 In Process (Atrovent Medneb) 12:45 Urinalysis LAB 07/29/24 Uncollected 14:21 Echo 2d Mode Cardiac US 07/29/24 Verified DOP 14:21 Amiodarone Tablet PHA 07/29/24 Verified (Cordarone Tablet) 14:30 Amiodarone Tablet PHA 07/30/24 Verified (Cordarone Tablet) 10:00 Potassium Chl Daniel PHA 07/29/24 Verified KCL 14:30 Basic Metabolic Panel LAB 07/30/24 Verified 06:00 Complete Blood Count LAB 07/30/24 Verified 06:00 Chest Portable XY 07/30/24 Verified 06:00 Critical Care Time (mins): 41 (critical care time excluding procedures is 41 mins) Date of Service: Jul 29, 2024 Billing Provider: KEILA FORD MD Common Visit Codes: [id number] CARE 30-74 MIN KEILA FORD MD Jul 29, 2024 14:28
[2024-07-29] MEDS: AMIODARONE HCL 200 MG TAB PO ONE (14:30)
[2024-07-29] MEDS: FUROSEMIDE 20 MG/2 ML VIAL IV ONE ×2 (14:43→20:29)
[2024-07-29] MEDS ORDERED: MORPHINE SULFATE 4 MG/ML SYR/VIAL IV PRN (14:45)
[2024-07-29] MEDS: POTASSIUM CHLORIDE 40 MEQ, LIDOCAINE 1% (LOCAL ANESTH.) 4 ML in SODIUM CHL 0.9% 250 ML IV ONE (15:26)
[2024-07-29] MEDS: methylPREDNISolone SOD SUCC 125 MG/2 ML VL IV ONE (23:47)
[2024-07-30] VITALS (88 sets, daily range): BP systolic 91–177; BP diastolic 56–104; PULSE 88–138; RESP 13–29; TEMP 97.2–98.4; O2SAT 92–100
[2024-07-30] MEDS: IPRATROPIUM BROM 0.5 MG/2.5ML INH SOL NEB SCH (02:09)
[2024-07-30] MEDS: LEVALBUTEROL HCL 1.25 MG/3 ML NEB NEB SCH (02:09)
[2024-07-30 05:02] LABS: Basophils # (auto) 0 10 ^3/uL (0-0.2); Eosinophils # (auto) 0 10 ^3/uL (0-0.8); Hemoglobin 12.9 g/dL (12.2-16.2); Lymphocytes # (auto) 0.1 10 ^3/uL (0.4-5.4); Lymphocytes % (auto) 1.6 % (10.0-50.0); Mean Corpuscular Hemoglobin 29.5 pg (28.0-32.0); Mean Corpuscular Volume 89.3 fL (80.0-100.0); Monocytes # (auto) 0.6 10 ^3/uL (0-1.3); Monocytes % (auto) 8.1 % (0.0-12.0); Neutrophils # (auto) 6.3 10 ^3/uL (1.6-8.6); Neutrophils % (auto) 90.3 % (37.0-80.0); Nucleated Red Blood Cells % 0.1 %; Platelet Count (auto) 146 10^3/uL (140-450); Red Blood Cells 4.37 10^6/uL (4.0-5.20); Red Cell Distribution Width 16.8 % (11.8-14.3)
[2024-07-30 05:13] LABS: Potassium 3.6 mmol/L (3.5-5.1); Sodium 139 mmol/L (136-145)
[2024-07-30 05:14] LABS: Anion Gap 6 (5-15)
[2024-07-30 05:18] LABS: Carbon Dioxide 35 mmol/L (20-31); Chloride 98 mmol/L (98-107)
[2024-07-30 05:20] LABS: BUN/Creatinine Ratio 12.8 (10.0-20.0); Blood Urea Nitrogen 20 mg/dL (9-23)
[2024-07-30 05:21] LABS: Glucose 125 mg/dL (74-106)
--- NOTE | 2024-07-30 08:15 | DVH ---
EXAM: XR Chest, 1 View CLINICAL INDICATION: COPD TECHNIQUE: Frontal view of the chest. COMPARISON: XY CHEST PORTABLE on DOS: 07/28/24 FINDINGS: LUNGS AND PLEURAL SPACES: Unremarkable. No consolidation. No pneumothorax. HEART: Cardiomegaly without overt failure. MEDIASTINUM: Unremarkable. Normal mediastinal contour. BONES/JOINTS: Unremarkable. No acute fracture. OTHER FINDINGS: . IMPRESSION: Cardiomegaly without overt failure.
[2024-07-30] MEDS: FUROSEMIDE 20 MG/2 ML VIAL IV SCH (09:30)
[2024-07-30] MEDS: AMIODARONE HCL 200 MG TAB PO SCH (11:36)
--- NOTE | 2024-07-30 11:36 | DVHSR ---
APPROVED REPORT EXAM: Two-dimensional and M-mode echocardiogram with Doppler and color Doppler. Blood Pressure: 140/106 mmHg INDICATION CHF RISK FACTORS Obesity: Height: 5'3", Weight: 250 DIMENSIONS LVDd4.3 (3.8-5.7cm)LA (2D)4.2 (1.9-4.0cm)Aortic Root3.1 (2.0-3.7cm) LVDs3.6 (2.5-4.0cm)LA (MM) (1.9-4.0cm)Aortic Cusp Exc1.5 (1.5-2.0cm) EF (%) 30.0 (55-70%)Rt. Atrium4.5 (1.9-4.0cm)Asc. Aorta cm IVSd1.3 (0.7-1.1cm)RV (D) (1.8-2.4cm) PWd1.3 (0.7-1.1cm) Mitral Valve MitralMitral Stenosis E wave1.08m/sMV Mean GR.mmHg E/A ratio0.02D MVAcm2 Aortic Valve Aortic ValveAortic Stenosis V10.91m/Joseph Mean GR.3mmHg V21.34m/Joseph Peak GR.7mmHg LVOT Diameter1.8 (1.8-2.4cm)Doppler AVA1.73cm2 Pulmonic Valve V20.74m/s Tricuspid Valve TR Velocity2.73m/s [id number] Other Information Technically limited study due to body habitus and patient position. Conclusion lvef 35-40% by visual estimate mild to moderate LVH mild mitral regurg aortic sclerosis left atrium enlarged moderate
--- NOTE | 2024-07-30 12:34 | DVHPN2 ---
Progress Note Date Seen: Jul 30, 2024 Medical Necessity Reason Pt with a Central, PICC or Fol: Yes The following are medically ne: Luis Catheter Reason for luis catheter: Strict I&O Subjective Patient reports: No new complaints Review of Systems: HEENT:Normal, CVS:Normal, RESPIRATORY:Normal, GI:Normal, :Normal, MSK:Normal, NEURO:Normal Objective vital signs Vital Sign Date Time Temp Pulse Resp B/P (MAP) Pulse Ox O2 Delivery O2 Flow Rate FiO2 07/30/24 12:00 18 95 Bi-Pap+ 30 30 07/30/24 11:37 138 118/68 07/30/24 06:41 2.0 07/30/24 04:45 98.3 98.3 Total Intake and Output 07/29/24 07/29/24 07/30/24 15:00 23:00 07:00 Intake Total 716.62 ml 694.0 ml Output Total 1200 ml 1000 ml Balance 716.62 ml -506.0 ml -1000 ml medications Current Medications Medications Dose Ordered Sig/Adam Route Start Time Stop Time Status Last Admin Dose Admin Sodium Chloride 10 ml Q8HR IV 07/28/24 14:00 07/30/24 06:23 10 ML Acetaminophen/ Hydrocodone Bitart 1 tab Q4HP PRN PO 07/28/24 13:30 07/29/24 21:05 1 TAB Ondansetron HCl 4 mg Q4HP PRN IV 07/28/24 13:30 Docusate Sodium 100 mg BIDPRN PRN PO 07/28/24 13:30 Acetaminophen 650 mg Q6HP PRN PO 07/28/24 13:30 Nitroglycerin 0.4 mg Q5MINP PRN SL 07/28/24 13:30 Apixaban 5 mg BID PO 07/28/24 22:00 07/30/24 11:37 5 MG Budesonide 0.5 mg BID NEB 07/28/24 22:00 07/30/24 06:41 0.5 MG Metoprolol Tartrate 50 mg BID PO 07/28/24 22:00 07/30/24 11:37 50 MG Atorvastatin Calcium 80 mg HS PO 07/28/24 22:00 07/29/24 21:48 80 MG Citalopram Hydrobromide 40 mg DAILY PO 07/29/24 10:00 07/30/24 11:37 40 MG Methylprednisolone Sodium Succinate 40 mg BID IV 07/28/24 22:00 07/30/24 09:30 40 MG Azithromycin 250 ml @ 125 mls/hr DAILY IV 07/29/24 10:00 07/29/24 09:56 125 MLS/HR Ceftriaxone Sodium 50 ml @ 100 mls/hr DAILY@09 IV 07/29/24 09:00 07/30/24 09:30 100 MLS/HR Diagnostic Test (Pha) 1 strip ACHS 07/28/24 17:00 07/30/24 06:27 1 STRIP Insulin Human Regular HS SC 07/28/24 22:00 07/29/24 23:01 2 UNITS Insulin Human Regular AC SC 07/28/24 17:00 07/30/24 06:29 2 UNITS Dextrose 50 ml UD PRN IV 07/28/24 14:00 Hydralazine HCl 10 mg Q6HP PRN IV 07/28/24 16:00 07/28/24 18:03 10 MG Albuterol 2.5 mg Q4HPRN PRN NEB 07/29/24 12:45 Ipratropium [place] 0.5 mg Q4HPRN PRN NEB 07/29/24 12:45 Amiodarone HCl 200 mg DAILY PO 07/30/24 10:00 07/30/24 11:36 200 MG Furosemide 20 mg DAILY IV 07/30/24 10:00 07/30/24 09:30 20 MG Morphine Sulfate 2 mg Q30M PRN IV 07/29/24 14:45 Ipratropium [place] 0.5 mg Q4HR NEB 07/30/24 02:00 07/30/24 09:22 0.5 MG Levalbuterol HCl 1.25 mg Q4HR NEB 07/30/24 02:00 07/30/24 09:22 1.25 MG Examination: GENERAL:Normal, HEENT:Normal, NECK:Normal, LUNGS:Normal, LUNGS:Abnormal (on bipap), CVS:Normal, ABDOMEN:Normal, MSK:Normal, SKIN:Normal, NEURO:Normal, :Normal laboratory and microbiology Laboratory Tests 07/30/24 04:30 Test 07/30/24 04:30 Range/Units Serum Glucose 125 H 74-106 mg/dL Microbiology Date/Time Source Procedure Growth Status 07/28/24 08:46 Blood Blood Culture - Preliminary NO GROWTH AFTER 48 HOURS OF INCUBATION. Resulted Problem List/Assessment/Plan Problem List/Assessment/Plan #1 acute on chronic resp failure: cont bipap, wean as tolerated, monitor abg #2 ?pneumonia- gram positive/neg: iv antibiotics #3 htn #4 dm: ssi #5 a fib with rvr with secondary hypercoagulable state: on amiodarone, xarelto, lopressor #6 morbid obesity #7 acute on chronic systolic/diastolic heart failure: lasix iv #8 ckd stage 3 Plan discussed with: Patient My Orders My Orders Orders - KEILA FORD MD Procedure Category Date Status Time Albuterol Medneb PHA 07/29/24 In Process (Ventolin Medneb) 12:45 Ipratropium Medneb PHA 07/29/24 In Process (Atrovent Medneb) 12:45 Urinalysis LAB 07/30/24 Logged 11:00 Echo 2d Mode Cardiac US 07/29/24 Resulted DOP 14:21 Amiodarone Tablet PHA 07/30/24 In Process (Cordarone Tablet) 10:00 Chest Portable XY 07/30/24 Resulted 06:00 Furosemide Injection PHA 07/30/24 In Process (Lasix Injection) 10:00 Mrsa Screen SUZAN 07/30/24 In Process 04:23 Insert Midline ORDERS 07/30/24 Transmitted 10:02 Urine Bacterial SUZAN 07/30/24 In Process Culture 11:03 Furosemide Injection PHA 07/30/24 Verified (Lasix Injection) 12:30 Cardiac DIET 07/30/24 Verified Diet-2gna,Lofat,Lochol Lunch Basic Metabolic Panel LAB 07/31/24 Verified 06:00 Complete Blood Count LAB 07/31/24 Verified 06:00 Magnesium LAB 07/31/24 Verified 05:00 Chest Portable XY 07/31/24 Verified 06:00 Critical Care Time (mins): 37 (critical care time excluding procedures was 37 mins) Date of Service: Jul 30, 2024 Billing Provider: KEILA FORD MD Common Visit Codes: [id number] CARE 30-74 MIN KEILA FORD MD Jul 30, 2024 12:34
[2024-07-30] MEDS: FUROSEMIDE 20 MG/2 ML VIAL ONE (12:46)
[2024-07-30] MEDS: FUROSEMIDE 20 MG/2 ML VIAL IV ONE (12:46)
[2024-07-30 12:55] LABS: Urine Bacteria FEW /hpf (None Seen); Urine Blood 2+ /uL (Negative); Urine Clarity Clear (Clear); Urine Color Colorless (Yellow); Urine Hyaline Cast FEW /lpf (0 - 2); Urine Mucus FEW (None Seen); Urine Protein, UAD Negative (Negative); Urine Specific Gravity 1.007 (1.001-1.035); Urine Squamous Epithelial Cell FEW /hpf (<5); Urine Urobilinogen Normal (Negative); Urine WBC 3 /HPF (0-5); Urine pH 5.5 (5.0-9.0)
[2024-07-30 13:26] LABS: Base Excess 8.7 mmol/L (-2.0-3.0)
[2024-07-31] VITALS (107 sets, daily range): BP systolic 103–161; BP diastolic 61–124; PULSE 85–140; RESP 14–32; TEMP 97.3–97.8; O2SAT 93–100
[2024-07-31 04:45] LABS: Basophils # (auto) 0 10 ^3/uL (0-0.2); Basophils % (auto) 0.1 % (0.0-2.0); Eosinophils # (auto) 0 10 ^3/uL (0-0.8); Hematocrit 39.9 % (36.0-46.0); Lymphocytes # (auto) 0.1 10 ^3/uL (0.4-5.4); Lymphocytes % (auto) 1.2 % (10.0-50.0); Mean Corpuscular Hemoglobin 29.1 pg (28.0-32.0); Mean Corpuscular Hgb Conc. 32.5 g/dL (32.0-36.0); Mean Corpuscular Volume 89.7 fL (80.0-100.0); Monocytes # (auto) 0.6 10 ^3/uL (0-1.3); Monocytes % (auto) 7.6 % (0.0-12.0); Neutrophils # (auto) 7.2 10 ^3/uL (1.6-8.6); Neutrophils % (auto) 91.1 % (37.0-80.0); Nucleated Red Blood Cells % 0.1 %; Platelet Count (auto) 145 10^3/uL (140-450); Red Blood Cells 4.45 10^6/uL (4.0-5.20); Red Cell Distribution Width 17.8 % (11.8-14.3); White Blood Cell 7.9 10^3/uL (4.4-10.8)
[2024-07-31 04:55] LABS: Chloride 99 mmol/L (98-107); Potassium 3.6 mmol/L (3.5-5.1); Sodium 142 mmol/L (136-145)
[2024-07-31 04:56] LABS: Anion Gap 6 (5-15); Calcium 10.1 mg/dL (8.7-10.4)
[2024-07-31 04:58] LABS: Carbon Dioxide 37 mmol/L (20-31)
[2024-07-31 05:01] LABS: BUN/Creatinine Ratio 17.5 (10.0-20.0)
[2024-07-31 05:03] LABS: Blood Urea Nitrogen 24 mg/dL (9-23); Glucose 140 mg/dL (74-106)
[2024-07-31 05:26] LABS: Magnesium 2.6 mg/dL (1.6-2.6)
--- NOTE | 2024-07-31 05:30 | DVH ---
EXAM: XR Chest, 1 View CLINICAL INDICATION: COPD TECHNIQUE: Frontal view of the chest. COMPARISON: XY CHEST PORTABLE on DOS: 07/30/24, XY CHEST PORTABLE on DOS: 07/28/24 FINDINGS: LUNGS AND PLEURAL SPACES: Unremarkable. No consolidation. No pneumothorax. HEART: Unremarkable. No cardiomegaly. MEDIASTINUM: Unremarkable. Normal mediastinal contour. BONES/JOINTS: Unremarkable. No acute fracture. OTHER FINDINGS: . IMPRESSION: No acute cardiopulmonary process.
--- NOTE | 2024-07-31 15:04 | DVHPN2 ---
Progress Note Date Seen: Jul 31, 2024 Medical Necessity Reason Pt with a Central, PICC or Fol: Yes The following are medically ne: Luis Catheter Reason for luis catheter: Strict I&O Subjective Patient reports: No new complaints Review of Systems: HEENT:Normal, CVS:Normal, RESPIRATORY:Normal, GI:Normal, :Normal, MSK:Normal, NEURO:Normal Objective vital signs Vital Sign Date Time Temp Pulse Resp B/P (MAP) Pulse Ox O2 Delivery O2 Flow Rate FiO2 07/31/24 14:09 100 20 100 07/31/24 14:00 146/95 07/31/24 12:06 Facial BiPAP Mask 30 07/31/24 12:01 97.7 97.7 07/31/24 12:00 2 Total Intake and Output 07/30/24 07/30/24 07/31/24 15:00 23:00 07:00 Intake Total 0 ml 50 ml 240 ml Output Total 1300 ml 150 ml Balance 0 ml -1250 ml 90 ml medications Current Medications Medications Dose Ordered Sig/Adam Route Start Time Stop Time Status Last Admin Dose Admin Sodium Chloride 10 ml Q8HR IV 07/28/24 14:00 07/31/24 05:33 10 ML Acetaminophen/ Hydrocodone Bitart 1 tab Q4HP PRN PO 07/28/24 13:30 07/29/24 21:05 1 TAB Ondansetron HCl 4 mg Q4HP PRN IV 07/28/24 13:30 Docusate Sodium 100 mg BIDPRN PRN PO 07/28/24 13:30 Acetaminophen 650 mg Q6HP PRN PO 07/28/24 13:30 Nitroglycerin 0.4 mg Q5MINP PRN SL 07/28/24 13:30 Apixaban 5 mg BID PO 07/28/24 22:00 07/31/24 09:31 5 MG Budesonide 0.5 mg BID NEB 07/28/24 22:00 07/31/24 06:18 0.5 MG Metoprolol Tartrate 50 mg BID PO 07/28/24 22:00 07/31/24 09:30 50 MG Atorvastatin Calcium 80 mg HS PO 07/28/24 22:00 07/30/24 22:58 80 MG Citalopram Hydrobromide 40 mg DAILY PO 07/29/24 10:00 07/31/24 09:40 40 MG Methylprednisolone Sodium Succinate 40 mg BID IV 07/28/24 22:00 07/31/24 09:21 40 MG Azithromycin 250 ml @ 125 mls/hr DAILY IV 07/29/24 10:00 07/31/24 10:33 125 MLS/HR Ceftriaxone Sodium 50 ml @ 100 mls/hr DAILY@09 IV 07/29/24 09:00 07/31/24 09:16 100 MLS/HR Diagnostic Test (Pha) 1 strip ACHS 07/28/24 17:00 07/31/24 11:11 1 STRIP Insulin Human Regular HS SC 07/28/24 22:00 07/30/24 22:25 4 UNITS Insulin Human Regular AC SC 07/28/24 17:00 07/31/24 11:36 6 UNITS Dextrose 50 ml UD PRN IV 07/28/24 14:00 Hydralazine HCl 10 mg Q6HP PRN IV 07/28/24 16:00 07/28/24 18:03 10 MG Albuterol 2.5 mg Q4HPRN PRN NEB 07/29/24 12:45 Ipratropium [place] 0.5 mg Q4HPRN PRN NEB 07/29/24 12:45 Amiodarone HCl 200 mg DAILY PO 07/30/24 10:00 07/31/24 09:32 200 MG Furosemide 20 mg DAILY IV 07/30/24 10:00 07/31/24 09:15 20 MG Morphine Sulfate 2 mg Q30M PRN IV 07/29/24 14:45 Ipratropium [place] 0.5 mg Q4HR NEB 07/30/24 02:00 07/31/24 14:00 0.5 MG Levalbuterol HCl 1.25 mg Q4HR NEB 07/30/24 02:00 07/31/24 13:59 1.25 MG Examination: GENERAL:Normal, HEENT:Normal, NECK:Normal, LUNGS:Normal, LUNGS:Abnormal (on bipap/ oxygen, rhonchi), CVS:Normal, ABDOMEN:Normal, MSK:Normal, SKIN:Normal, NEURO:Normal, :Normal laboratory and microbiology Laboratory Tests 07/31/24 03:34 Test 07/31/24 03:34 Range/Units Serum Glucose 140 H 74-106 mg/dL Microbiology Date/Time Source Procedure Growth Status 07/30/24 04:23 Nose MRSA Screen - Final Complete 07/28/24 08:46 Blood Blood Culture - Preliminary NO GROWTH AFTER 72 HOURS OF INCUBATION. Resulted Problem List/Assessment/Plan Problem List/Assessment/Plan #1 acute on chronic resp failure: cont bipap, wean as tolerated, monitor abg #2 ?pneumonia- gram positive/neg: iv antibiotics #3 htn #4 dm: ssi #5 a fib with rvr with secondary hypercoagulable state: on amiodarone, xarelto, lopressor #6 morbid obesity #7 acute on chronic systolic/diastolic heart failure: lasix iv #8 ckd stage 3 advance care planning- full code- time spent 19 mins Plan discussed with: Patient My Orders My Orders Orders - KEILA FORD MD Procedure Category Date Status Time Furosemide Injection PHA 07/31/24 Verified (Lasix Injection) 22:00 Dietary Evaluation Review Comments: 1) Ensure Enlive 240ml TID (ordered per ONS protocol) 2) MVI 1 tab daily 3) Continue current POC Expected Outcomes/Goals: To meet >75% estimated needs Fu 3-5 days Date of Service: Jul 31, 2024 Billing Provider: KEILA FORD MD Common Visit Codes: [id number] INP/OBS CARE(HIGH) Secondary Visit Codes: [id number] CARE PLAN 30 MINUTES KEILA FORD MD Jul 31, 2024 15:04
[2024-07-31] MEDS: FUROSEMIDE 20 MG/2 ML VIAL IV ONE (15:31)
[2024-07-31] MEDS: AMIODARONE 360mg/200mL PREMIX 200 ML IV ONE (17:39)
[2024-07-31] MEDS: METOPROLOL TARTRATE 50 MG TAB PO SCH (21:42)
[2024-07-31] MEDS: AMIODARONE 360mg/200mL PREMIX 200 ML IV SCH (23:16)
[2024-07-31] MEDS: TEMAZEPAM 15 MG CAP PO ONE (23:25)
[2024-08-01] VITALS (100 sets, daily range): BP systolic 103–168; BP diastolic 37–110; PULSE 92–141; RESP 16–27; TEMP 97.1–98.6; O2SAT 92–100
[2024-08-01 05:28] LABS: Anion Gap 6 (5-15); Potassium 3.8 mmol/L (3.5-5.1); Sodium 140 mmol/L (136-145)
[2024-08-01 05:29] LABS: Calcium 9.7 mg/dL (8.7-10.4)
[2024-08-01 05:34] LABS: BUN/Creatinine Ratio 19.8 (10.0-20.0)
[2024-08-01 05:51] LABS: Blood Urea Nitrogen 26 mg/dL (9-23); Chloride 94 mmol/L (98-107); Glucose 136 mg/dL (74-106)
[2024-08-01 05:52] LABS: Carbon Dioxide 40 mmol/L (20-31)
[2024-08-01] MEDS: FUROSEMIDE 20 MG/2 ML VIAL IV SCH (06:02)
--- NOTE | 2024-08-01 07:32 | ECG ---
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
--- NOTE | 2024-08-01 07:34 | ECG ---
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
[2024-08-01 11:11] LABS: Basophils # (auto) 0 10 ^3/uL (0-0.2); Basophils % (auto) 0.4 % (0.0-2.0); Eosinophils # (auto) 0 10 ^3/uL (0-0.8); Eosinophils % (auto) 0.1 % (0.0-7.0); Hematocrit 38.8 % (36.0-46.0); Hemoglobin 12.7 g/dL (12.2-16.2); Lymphocytes # (auto) 0.1 10 ^3/uL (0.4-5.4); Lymphocytes % (auto) 1.5 % (10.0-50.0); Mean Corpuscular Hemoglobin 29.4 pg (28.0-32.0); Mean Corpuscular Hgb Conc. 32.8 g/dL (32.0-36.0); Mean Corpuscular Volume 89.5 fL (80.0-100.0); Monocytes # (auto) 0.7 10 ^3/uL (0-1.3); Monocytes % (auto) 7.2 % (0.0-12.0); Neutrophils # (auto) 8.6 10 ^3/uL (1.6-8.6); Neutrophils % (auto) 90.8 % (37.0-80.0); Nucleated Red Blood Cells % 0.2 %; Platelet Count (auto) 145 10^3/uL (140-450); Red Blood Cells 4.33 10^6/uL (4.0-5.20); White Blood Cell 9.5 10^3/uL (4.4-10.8)
[2024-08-01 13:05] LABS: Base Excess 11.3 mmol/L (-2.0-3.0)
--- NOTE | 2024-08-01 15:29 | DVHPN2 ---
Progress Note Date Seen: Aug 01, 2024 Medical Necessity Reason Pt with a Central, PICC or Fol: Yes The following are medically ne: Luis Catheter Reason for luis catheter: Strict I&O Subjective Patient reports: No new complaints Review of Systems: HEENT:Normal, CVS:Normal, RESPIRATORY:Normal, GI:Normal, :Normal, MSK:Normal, NEURO:Normal Objective vital signs Vital Sign Date Time Temp Pulse Resp B/P (MAP) Pulse Ox O2 Delivery O2 Flow Rate FiO2 08/01/24 14:30 111 26 130/106 (114) 100 08/01/24 14:18 Nasal Cannula 3.0 08/01/24 14:18 32 08/01/24 12:00 98.6 98.6 Total Intake and Output 07/31/24 07/31/24 08/01/24 14:59 22:59 06:59 Intake Total 300 ml 373.32 ml 569.95 ml Output Total 1000 ml Balance 300 ml -626.68 ml 569.95 ml medications Current Medications Medications Dose Ordered Sig/Adam Route Start Time Stop Time Status Last Admin Dose Admin Sodium Chloride 10 ml Q8HR IV 07/28/24 14:00 08/01/24 12:00 10 ML Acetaminophen/ Hydrocodone Bitart 1 tab Q4HP PRN PO 07/28/24 13:30 07/29/24 21:05 1 TAB Ondansetron HCl 4 mg Q4HP PRN IV 07/28/24 13:30 Docusate Sodium 100 mg BIDPRN PRN PO 07/28/24 13:30 Acetaminophen 650 mg Q6HP PRN PO 07/28/24 13:30 Nitroglycerin 0.4 mg Q5MINP PRN SL 07/28/24 13:30 Apixaban 5 mg BID PO 07/28/24 22:00 08/01/24 09:25 5 MG Budesonide 0.5 mg BID NEB 07/28/24 22:00 08/01/24 06:28 0.5 MG Atorvastatin Calcium 80 mg HS PO 07/28/24 22:00 07/31/24 22:02 80 MG Citalopram Hydrobromide 40 mg DAILY PO 07/29/24 10:00 08/01/24 09:24 40 MG Methylprednisolone Sodium Succinate 40 mg BID IV 07/28/24 22:00 08/01/24 09:23 40 MG Azithromycin 250 ml @ 125 mls/hr DAILY IV 07/29/24 10:00 08/01/24 09:24 125 MLS/HR Ceftriaxone Sodium 50 ml @ 100 mls/hr DAILY@09 IV 07/29/24 09:00 08/01/24 09:22 100 MLS/HR Diagnostic Test (Pha) 1 strip ACHS 07/28/24 17:00 08/01/24 10:56 1 STRIP Insulin Human Regular HS SC 07/28/24 22:00 07/31/24 22:04 6 UNITS Insulin Human Regular AC SC 07/28/24 17:00 08/01/24 10:47 3 UNITS Dextrose 50 ml UD PRN IV 07/28/24 14:00 Hydralazine HCl 10 mg Q6HP PRN IV 07/28/24 16:00 07/28/24 18:03 10 MG Albuterol 2.5 mg Q4HPRN PRN NEB 07/29/24 12:45 Ipratropium [place] 0.5 mg Q4HPRN PRN NEB 07/29/24 12:45 Morphine Sulfate 2 mg Q30M PRN IV 07/29/24 14:45 Ipratropium [place] 0.5 mg Q4HR NEB 07/30/24 02:00 08/01/24 14:04 0.5 MG Levalbuterol HCl 1.25 mg Q4HR NEB 07/30/24 02:00 08/01/24 14:04 1.25 MG Furosemide 20 mg BIDD IV 08/01/24 06:00 08/01/24 06:02 20 MG Metoprolol Tartrate 25 mg BID PO 07/31/24 22:00 08/01/24 09:21 25 MG Examination: GENERAL:Normal, HEENT:Normal, NECK:Normal, LUNGS:Normal, LUNGS:Abnormal (on bipap), CVS:Normal, ABDOMEN:Normal, MSK:Normal, SKIN:Normal, NEURO:Normal, :Normal laboratory and microbiology Laboratory Tests 08/01/24 05:07 Test 08/01/24 05:07 Range/Units Serum Glucose 136 H 74-106 mg/dL Microbiology Date/Time Source Procedure Growth Status 07/30/24 10:20 Urine - [place] Urine Culture - Final Complete 07/30/24 04:23 Nose MRSA Screen - Final Complete 07/28/24 08:46 Blood Blood Culture - Preliminary NO GROWTH AFTER 72 HOURS OF INCUBATION. Resulted Problem List/Assessment/Plan Problem List/Assessment/Plan #1 acute on chronic resp failure: cont bipap, wean as tolerated, monitor abg #2 ?pneumonia- gram positive/neg: iv zosyn, zithromax #3 htn #4 dm: ssi #5 a fib with rvr with secondary hypercoagulable state: on iv amiodarone, xarelto, lopressor #6 morbid obesity #7 acute on chronic systolic/diastolic heart failure: lasix iv #8 ckd stage 3 #9 nutrition: iv clinimix advance care planning- full code- time spent 19 mins Plan discussed with: Patient My Orders My Orders Orders - KEILA FORD MD Procedure Category Date Status Time Amiodarone PHA 07/31/24 In Process 360mg/200ml Premix 23:15 Electrocardigram EKG 07/31/24 Logged 20:03 Abg W/ Co-Ox RT 08/01/24 Logged 10:57 Dietary Evaluation Review Comments: 1) Ensure Enlive 240ml TID (ordered per ONS protocol) 2) MVI 1 tab daily 3) Continue current POC Expected Outcomes/Goals: To meet >75% estimated needs Fu 3-5 days Critical Care Time (mins): 38 (critical care time 38 mins excluding procedures) Date of Service: Aug 01, 2024 Billing Provider: KEILA FORD MD Common Visit Codes: [id number] CARE 30-74 MIN KEILA FORD MD Aug 01, 2024 15:29
[2024-08-01] MEDS ORDERED: CLINIMIX PER PHARMACY 0 ML IV SCH (15:30)
[2024-08-01] MEDS: LORazepam 2MG/ML-1ML VIAL IV PRN (15:45)
[2024-08-01] MEDS: PIPERACILLIN-TAZOB 3.375GM 100 ML IV ONE (15:45)
[2024-08-01] MEDS: AMINO ACID INFUSION IN D10W 1,000 ML IV SCH (22:45)
[2024-08-01] MEDS: PIPERACILLIN-TAZOB 3.375GM 100 ML IV SCH (22:45)
[2024-08-01] MEDS: TEMAZEPAM 15 MG CAP PO PRN (23:07)
[2024-08-02] VITALS (83 sets, daily range): BP systolic 77–169; BP diastolic 44–117; PULSE 81–140; RESP 14–28; TEMP 97.7–98.6; O2SAT 93–100
[2024-08-02 05:23] LABS: Basophils # (auto) 0 10 ^3/uL (0-0.2); Basophils % (auto) 0.2 % (0.0-2.0); Eosinophils # (auto) 0 10 ^3/uL (0-0.8); Hematocrit 41.3 % (36.0-46.0); Hemoglobin 13.5 g/dL (12.2-16.2); Lymphocytes # (auto) 0.1 10 ^3/uL (0.4-5.4); Lymphocytes % (auto) 1.2 % (10.0-50.0); Mean Corpuscular Hemoglobin 29.4 pg (28.0-32.0); Mean Corpuscular Hgb Conc. 32.8 g/dL (32.0-36.0); Mean Corpuscular Volume 89.7 fL (80.0-100.0); Monocytes # (auto) 0.9 10 ^3/uL (0-1.3); Monocytes % (auto) 8.3 % (0.0-12.0); Neutrophils # (auto) 9.3 10 ^3/uL (1.6-8.6); Neutrophils % (auto) 90.3 % (37.0-80.0); Nucleated Red Blood Cells % 0.1 %; Platelet Count (auto) 127 10^3/uL (140-450); Red Cell Distribution Width 17.4 % (11.8-14.3); White Blood Cell 10.3 10^3/uL (4.4-10.8)
[2024-08-02 05:39] LABS: Albumin 4.2 g/dL (3.2-4.8); Alkaline Phosphatase 57 U/L (46-116); Aspartate Aminotransferase 31 U/L (0-34); Magnesium 2.3 mg/dL (1.6-2.6); Potassium 3.8 mmol/L (3.5-5.1); Sodium 141 mmol/L (136-145); Total Protein 6.4 g/dL (5.7-8.2)
[2024-08-02 05:40] LABS: Bilirubin, Total 0.4 mg/dL (0.2-1.0); Phosphorus 3.2 mg/dL (2.4-5.1)
[2024-08-02 05:41] LABS: Alanine Aminotransferase 49 U/L (7-40); Anion Gap 7.99999 (5-15); Calcium 10.4 mg/dL (8.7-10.4); Carbon Dioxide > 40 mmol/L (20-31); Chloride 93 mmol/L (98-107); Glucose 171 mg/dL (74-106)
[2024-08-02 05:52] LABS: BUN/Creatinine Ratio 19.8 (10.0-20.0)
[2024-08-02 05:53] LABS: Blood Urea Nitrogen 25 mg/dL (9-23)
[2024-08-02] MEDS: FUROSEMIDE 20 MG/2 ML VIAL IV SCH (08:43)
--- NOTE | 2024-08-02 10:28 | DVH ---
INDICATION: SOB TECHNIQUE: Frontal view of the chest. COMPARISON: XY CHEST PORTABLE on DOS: 07/31/24, XY CHEST PORTABLE on DOS: 07/30/24, XY CHEST PORTABLE o n DOS: 07/28/24 FINDINGS: . The heart and mediastinal contours are grossly unremarkable. There is no evidence of pleural disea se. The lungs are clear. The bony structures of the chest are intact without fracture. IMPRESSION: 1. No evidence of acute disease.
[2024-08-02] MEDS: IPRATROPIUM BROM 0.5 MG/2.5ML INH SOL NEB PRN (12:50)
[2024-08-02] MEDS: ALBUTEROL SULF 2.5 MG/0.5ML(0.5%) NEB SOLN NEB PRN (12:50)
[2024-08-02] MEDS: MIDAZOLAM DRIP 50 mg/50mL 50 ML IV SCH (13:30)
[2024-08-02] MEDS: PROPOFOL 100 ML IV SCH (13:30)
[2024-08-02] MEDS: fentaNYL Drip 2500mCg/250mlNS 250 ML IV SCH (14:00)
[2024-08-02] MEDS: ETOMIDATE (2MG/ML) 20ML VIAL IV ONE (14:12)
[2024-08-02] MEDS: ROCURONIUM 10MG/ML 10ML VIAL IV ONE (14:12)
--- NOTE | 2024-08-02 14:46 | DVH ---
CHEST RADIOGRAPH Indication: INTUBATED, CENTRAL LINE PLACEMENT Technique: Single frontal view of the chest was obtained COMPARISON: XY CHEST PORTABLE on DOS: 08/02/24, XY CHEST PORTABLE on DOS: 07/31/24, XY CHEST PORTABLE o n DOS: 07/30/24, XY CHEST PORTABLE on DOS: 07/28/24 FINDINGS: Lines and Tubes: Endotracheal tube and enteric catheter in satisfactory position. Lungs: Clear left central venous catheter overlies the brachiocephalic / SVC junction. Pleura: No effusion. No pneumothorax. Cardiomediastinal contours: Unremarkable Bones: Unremarkable IMPRESSION: Lines and tubes in satisfactory position.
--- NOTE | 2024-08-02 14:55 | DVHNC2 ---
Procedure - endotracheal intubation indication: resp failure consent obtained pre-oxygenated with 100% Fi02/bipap pre-medicated etomidate 20 mg and rocuronium 50 mg iv glyde-scope used to visualize vocal cords 8.0F ET tube placed through the cords to the trachea and secured at 22 cm at the mouth positive capnography breath heard bilt in the lungs CXR ordered MAURI LASSITER MD Aug 02, 2024 14:55
--- NOTE | 2024-08-02 14:57 | DVHNC2 ---
Procedure - left IJ c line placement with us guidance consent and time out per protocol left IJ vein visualized using U/s sonosite chloraprep x 3 sterile drapes lidocaine 1%5 cc 3 lumen line inserted in left IJ using seldinger technique secured with 2 sutures biopatch and sterile dressing applied CXR ordered MAURI LASSITER MD Aug 02, 2024 14:57
[2024-08-02 15:31] LABS: Base Excess 13.9 mmol/L (-2.0-3.0)
[2024-08-02] MEDS: NOREPINEPHRINE 8 MG/250ML KIT 250 ML IV SCH (15:45)
--- NOTE | 2024-08-02 16:39 | DVHPNRES ---
Progress Note Date Seen: Aug 02, 2024 Resident Creating Document: ANNALISA BURGESS RESIDENT Medical Necessity Reason Pt with a Central, PICC or Fol: Yes The following are medically ne: Central Line, Luis Catheter Reason for luis catheter: Strict I&O Medical Necessity Reason Mell Rowley a 68-year-old female with significant medical history including COPD on home oxygen, asthma, atrial fibrillation, CVA December 2023, hypertension, and hyperlipidemia, presented to the ED due to shortness of breath. She is currently on Bipap but is very restless with a breathing rate 19- 25 but mainly in the 20s, and with the evidence of using muscles of respiration. The decision was made to intubate and also give central line. Subjective Review of Systems Unable to obtain as patient was unable to talk Objective vital signs Vital Sign Date Time Temp Pulse Resp B/P (MAP) Pulse Ox O2 Delivery O2 Flow Rate FiO2 08/02/24 15:16 24 93 Mechanical Ventilator+ 100 100 08/02/24 15:00 115 80/45 (57) 08/02/24 11:48 3 08/02/24 11:31 98.3 98.3 Total Intake and Output 08/01/24 08/01/24 08/02/24 15:00 23:00 07:00 Intake Total 720.28 ml 474.28 ml 724.28 ml Output Total 1150 ml 1000 ml Balance 720.28 ml -675.72 ml -275.72 ml medications Current Medications Medications Dose Ordered Sig/Adam Route Start Time Stop Time Status Last Admin Dose Admin Sodium Chloride 10 ml Q8HR IV 07/28/24 14:00 08/02/24 12:01 10 ML Acetaminophen/ Hydrocodone Bitart 1 tab Q4HP PRN PO 07/28/24 13:30 07/29/24 21:05 1 TAB Ondansetron HCl 4 mg Q4HP PRN IV 07/28/24 13:30 Docusate Sodium 100 mg BIDPRN PRN PO 07/28/24 13:30 Acetaminophen 650 mg Q6HP PRN PO 07/28/24 13:30 Nitroglycerin 0.4 mg Q5MINP PRN SL 07/28/24 13:30 Apixaban 5 mg BID PO 07/28/24 22:00 08/02/24 08:46 5 MG Budesonide 0.5 mg BID NEB 07/28/24 22:00 08/02/24 06:01 0.5 MG Atorvastatin Calcium 80 mg HS PO 07/28/24 22:00 08/01/24 22:44 80 MG Citalopram Hydrobromide 40 mg DAILY PO 07/29/24 10:00 08/02/24 08:46 40 MG Methylprednisolone Sodium Succinate 40 mg BID IV 07/28/24 22:00 08/02/24 08:43 40 MG Azithromycin 250 ml @ 125 mls/hr DAILY IV 07/29/24 10:00 08/02/24 08:43 125 MLS/HR Diagnostic Test (Pha) 1 strip ACHS 07/28/24 17:00 08/02/24 11:30 1 STRIP Insulin Human Regular HS SC 07/28/24 22:00 08/01/24 23:01 4 UNITS Insulin Human Regular AC SC 07/28/24 17:00 08/02/24 11:30 6 UNITS Dextrose 50 ml UD PRN IV 07/28/24 14:00 Hydralazine HCl 10 mg Q6HP PRN IV 07/28/24 16:00 07/28/24 18:03 10 MG Albuterol 2.5 mg Q4HPRN PRN NEB 07/29/24 12:45 08/02/24 12:50 2.5 MG Ipratropium [place] 0.5 mg Q4HPRN PRN NEB 07/29/24 12:45 08/02/24 12:50 0.5 MG Morphine Sulfate 2 mg Q30M PRN IV 07/29/24 14:45 Ipratropium [place] 0.5 mg Q4HR NEB 07/30/24 02:00 08/02/24 14:14 0.5 MG Levalbuterol HCl 1.25 mg Q4HR NEB 07/30/24 02:00 08/02/24 14:14 1.25 MG Metoprolol Tartrate 25 mg BID PO 07/31/24 22:00 08/02/24 08:47 25 MG Furosemide 20 mg DAILY IV 08/02/24 10:00 08/02/24 08:43 20 MG Lorazepam 0.5 mg Q6HP PRN IV 08/01/24 15:30 08/02/24 01:23 0.5 MG Piperacillin Sod/ Tazobactam Sod 100 ml @ 25 mls/hr Q8HR IV 08/01/24 22:00 08/02/24 14:00 25 MLS/HR Amino Acids 0 ml @ 0 mls/hr PER PHARMACY IV 08/01/24 15:30 Temazepam 15 mg HSPRN PRN PO 08/01/24 15:30 08/01/24 23:07 15 MG Amino Acids/ Electrolytes/ Dextrose 1,000 ml @ 41 mls/hr DAILY@2200 IV 08/01/24 22:00 08/01/24 22:45 41 MLS/HR Norepinephrine Bitartrate 250 ml @ 3.75 mls/hr Q24H IV 08/02/24 13:30 Propofol 100 ml @ 2.79 mls/hr Q24H IV 08/02/24 13:30 Midazolam HCl 50 ml @ 1 mls/hr Q24H IV 08/02/24 13:30 08/02/24 13:30 10 MLS/HR Fentanyl Citrate 250 ml @ 2.5 mls/hr Q24H IV 08/02/24 13:30 08/02/24 14:00 10 MLS/HR Examination General Appearance: Alert, Oriented X3, acute distress HEENT: Atraumatic, PERRLA, EOMI, Mucous membrane moist/pink Respiratory: tachycardic, mild rales, on Bipap Cardiovascular: tachycardiac, S1, Normal S2, No murmurs, no chest wall tenderness Abdominal: NO distention, no tenderness, bowel sounds present, no scars noted Extremities: No clubbing, No cyanosis, No edema, Normal pulses, No tenderness/swelling Skin: No rashes, No breakdown, No significant lesion Neuro: unable to assess Psych/Mental Status: restless laboratory and microbiology Laboratory Tests 08/02/24 04:59 Test 08/02/24 04:59 Range/Units Serum Glucose 171 H 74-106 mg/dL Microbiology Date/Time Source Procedure Growth Status 07/30/24 10:20 Urine - [place] Urine Culture - Final Complete 07/30/24 04:23 Nose MRSA Screen - Final Complete 07/28/24 08:46 Blood Blood Culture - Final NO GROWTH AFTER 5 DAYS OF INCUBATION. 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 - Furosemide - amiodarone, xarelto, lopressor Respiratory Acute on chronic respiratory failure COPD exacerbation Metabolic alkosis on abg home oxygen Asthma - Continue Azithromycin - Intubated and mechanical ventilation - hold albuterol and Ipratropim - Monitor vitals closely Genitourinary ckd stage 3 Monitor creatinine Metabolic/ Endocrine Hyperlipidemia Diabetes mellitus Mild hypokalemia Obesity grade 2, BMI: 36.3 kg/m2 - Atorvastatin - Sliding scale Infectious disease Possible underlying pneumonia- gram positive/neg - Continue azithromycin, Zosyn IV access: Left neck: Central line; Peripheral line: antibiotics Drips: Norepi, propofol, midazolam, Fentanyl intubated: 08/02/2024 Antibiotics: Azithromycin and Zosyn Advance plan discussed with daughter on the phone Critical care time 65 minutes Case and plan discussed + Dr. Connelly Plan discussed with: Patient, Daughter, Other (granddaughter) Dietary Evaluation Review Comments: 1) Ensure Enlive 240ml TID (ordered per ONS protocol) 2) MVI 1 tab daily 3) Continue current POC Expected Outcomes/Goals: To meet >75% estimated needs Fu 3-5 days Date of Service: Aug 02, 2024 Billing Provider: MAURI CONNELLY MD Common Visit Codes: NOT BILLABLE ANNALISA BURGESS RESIDENT Aug 02, 2024 16:39 MAURI CONNELLY MD Aug 03, 2024 12:50
[2024-08-03] VITALS (108 sets, daily range): BP systolic 83–134; BP diastolic 43–85; PULSE 64–103; RESP 12–25; TEMP 97.5–98.3; O2SAT 96–100
[2024-08-03 05:07] LABS: Basophils # (auto) 0 10 ^3/uL (0-0.2); Basophils % (auto) 0.2 % (0.0-2.0); Eosinophils # (auto) 0 10 ^3/uL (0-0.8); Hematocrit 38.4 % (36.0-46.0); Hemoglobin 12.9 g/dL (12.2-16.2); Lymphocytes # (auto) 0.1 10 ^3/uL (0.4-5.4); Lymphocytes % (auto) 1.3 % (10.0-50.0); Mean Corpuscular Hemoglobin 29.8 pg (28.0-32.0); Mean Corpuscular Hgb Conc. 33.5 g/dL (32.0-36.0); Mean Corpuscular Volume 88.8 fL (80.0-100.0); Monocytes # (auto) 1.1 10 ^3/uL (0-1.3); Monocytes % (auto) 10.5 % (0.0-12.0); Neutrophils # (auto) 9.4 10 ^3/uL (1.6-8.6); Nucleated Red Blood Cells % 0.1 %; Platelet Count (auto) 152 10^3/uL (140-450); Red Blood Cells 4.33 10^6/uL (4.0-5.20); Red Cell Distribution Width 17.1 % (11.8-14.3); White Blood Cell 10.7 10^3/uL (4.4-10.8)
[2024-08-03 05:29] LABS: Alanine Aminotransferase 54 U/L (7-40); Albumin 3.9 g/dL (3.2-4.8); Alkaline Phosphatase 55 U/L (46-116); Anion Gap 9 (5-15); Aspartate Aminotransferase 55 U/L (<34); BUN/Creatinine Ratio 20.1 (10.0-20.0); Bilirubin, Total 0.6 mg/dL (0.2-1.0); Blood Urea Nitrogen 44 mg/dL (9-23); Calcium 10.3 mg/dL (8.7-10.4); Carbon Dioxide 39 mmol/L (20-31); Chloride 91 mmol/L (98-107); Glucose 219 mg/dL (74-106); Magnesium 2.3 mg/dL (1.6-2.6); Potassium 3.5 mmol/L (3.5-5.1); Sodium 139 mmol/L (136-145)
[2024-08-03 05:30] LABS: Phosphorus 1.5 mg/dL (2.4-5.1)
--- NOTE | 2024-08-03 06:02 | DVH ---
CHEST RADIOGRAPH Indication: RESP DISTRESS Technique: Single frontal view of the chest was obtained Comparison: XY CHEST PORTABLE on DOS: 08/02/24, XY CHEST PORTABLE on DOS: 08/02/24, XY CHEST PORTABLE o n DOS: 07/31/24 IMPRESSION: Endotracheal tube tip is approximately 4 cm from the mary grace. Enteric tube tip beyond the inferior level of the examination. Left IJ catheter tip in the region of the superior vena cava. The lungs appear clear without focal airspace opacity effusion or pneumothorax.
[2024-08-03 07:51] LABS: Base Excess 14.3 mmol/L (-2.0-3.0)
[2024-08-03] MEDS: POTASSIUM PHOSPHATE 26.4 MEQ in SODIUM CHL 0.9% 100 ML IV ONE (12:00)
[2024-08-03] MEDS: AMIODARONE HCL 200 MG TAB PO ONE (12:47)
[2024-08-03] MEDS: SODIUM CHLORIDE 0.9% 1,000 ML IV SCH (12:47)
--- NOTE | 2024-08-03 13:35 | DVHPN2 ---
Assessment/Plan Assessment/Plan ICU note Covering for dr Coronado worsening resp alkalosis, restarting tube feeding. worsening STEPHEN, will monitor Physical exam sedated, intubated on mechanical vent PERRLA coarse mechanical breath sounds s1 s2 rrr abdomen soft nontender no le edema Labs ekg imaging reviewed Assessment and plan acute on chronic systolic heart failure afib with rvr acute on chronic hypoxic RF req mechanical vent COPD group E on home O2 with exacerbation primary resp alkalosis STEPHEN on CKD possible VMN HLD NIDDM obesity pneumonia gp gn c/w mechanical vent, decrease rate, repeat gas c/w pressors if needed to maintain map >65 c/w sedation maintain RAAS -3 c/w amio, switch IV to po start tube feeds, dc clinimix after c/w Zosyn, azithro c/w ac trend cr diet tf dvt ppx on ac gi ppx protonix condition critical prognosis poor full code critical care time 45 minutes Plan discussed with: Other Date of Service: Aug 03, 2024 Billing Provider: TAWANA MONTOYA MD Common Visit Codes: [id number] CARE 30-74 MIN TAWANA MONTOYA MD Aug 03, 2024 13:35
--- NOTE | 2024-08-03 14:23 | DVHPN2 ---
Progress Note - Dictate Date Seen: Aug 03, 2024 Medical Necessity Reason Pt with a Central, PICC or Fol: Yes The following are medically ne: Central Line, Luis Catheter Reason for luis catheter: Strict I&O vital signs Vital Sign Date Time Temp Pulse Resp B/P (MAP) Pulse Ox O2 Delivery O2 Flow Rate FiO2 08/03/24 14:00 73 12 83/43 (56) 98 08/03/24 13:45 30 08/03/24 12:00 97.7 97.7 08/03/24 12:00 Mechanical Ventilator+ 08/02/24 11:48 3 Total Intake and Output 08/02/24 08/02/24 08/03/24 15:00 23:00 07:00 Intake Total 797.12 ml 1352.78 ml 823.28 ml Output Total 2250 ml 300 ml Balance 797.12 ml -897.22 ml 523.28 ml medications Current Medications Medications Dose Ordered Sig/Adam Route Start Time Stop Time Status Last Admin Dose Admin Sodium Chloride 10 ml Q8HR IV 07/28/24 14:00 08/03/24 10:25 10 ML Acetaminophen/ Hydrocodone Bitart 1 tab Q4HP PRN PO 07/28/24 13:30 07/29/24 21:05 1 TAB Ondansetron HCl 4 mg Q4HP PRN IV 07/28/24 13:30 Docusate Sodium 100 mg BIDPRN PRN PO 07/28/24 13:30 Acetaminophen 650 mg Q6HP PRN PO 07/28/24 13:30 Nitroglycerin 0.4 mg Q5MINP PRN SL 07/28/24 13:30 Apixaban 5 mg BID PO 07/28/24 22:00 08/03/24 08:19 5 MG Budesonide 0.5 mg BID NEB 07/28/24 22:00 08/03/24 05:56 0.5 MG Atorvastatin Calcium 80 mg HS PO 07/28/24 22:00 08/02/24 22:20 80 MG Citalopram Hydrobromide 40 mg DAILY PO 07/29/24 10:00 08/03/24 08:19 40 MG Methylprednisolone Sodium Succinate 40 mg BID IV 07/28/24 22:00 08/03/24 08:18 40 MG Azithromycin 250 ml @ 125 mls/hr DAILY IV 07/29/24 10:00 08/03/24 08:18 125 MLS/HR Diagnostic Test (Pha) 1 strip ACHS 07/28/24 17:00 08/03/24 11:18 1 STRIP Insulin Human Regular HS SC 07/28/24 22:00 08/02/24 22:46 3 UNITS Insulin Human Regular AC SC 07/28/24 17:00 08/03/24 11:18 9 UNITS Dextrose 50 ml UD PRN IV 07/28/24 14:00 Hydralazine HCl 10 mg Q6HP PRN IV 07/28/24 16:00 07/28/24 18:03 10 MG Albuterol 2.5 mg Q4HPRN PRN NEB 07/29/24 12:45 08/02/24 12:50 2.5 MG Ipratropium [place] 0.5 mg Q4HPRN PRN NEB 07/29/24 12:45 08/02/24 12:50 0.5 MG Morphine Sulfate 2 mg Q30M PRN IV 07/29/24 14:45 Ipratropium [place] 0.5 mg Q4HR NEB 07/30/24 02:00 08/03/24 13:45 0.5 MG Levalbuterol HCl 1.25 mg Q4HR NEB 07/30/24 02:00 08/03/24 13:45 1.25 MG Metoprolol Tartrate 25 mg BID PO 07/31/24 22:00 08/02/24 08:47 25 MG Lorazepam 0.5 mg Q6HP PRN IV 08/01/24 15:30 08/02/24 01:23 0.5 MG Piperacillin Sod/ Tazobactam Sod 100 ml @ 25 mls/hr Q8HR IV 08/01/24 22:00 08/03/24 12:52 25 MLS/HR Amino Acids 0 ml @ 0 mls/hr PER PHARMACY IV 08/01/24 15:30 Temazepam 15 mg HSPRN PRN PO 08/01/24 15:30 08/01/24 23:07 15 MG Amino Acids/ Electrolytes/ Dextrose 1,000 ml @ 41 mls/hr DAILY@2200 IV 08/01/24 22:00 08/02/24 22:20 41 MLS/HR Norepinephrine Bitartrate 250 ml @ 3.75 mls/hr Q24H IV 08/02/24 13:30 08/03/24 09:50 3.75 MLS/HR Propofol 100 ml @ 2.79 mls/hr Q24H IV 08/02/24 13:30 Midazolam HCl 50 ml @ 1 mls/hr Q24H IV 08/02/24 13:30 08/03/24 09:52 8 MLS/HR Fentanyl Citrate 250 ml @ 2.5 mls/hr Q24H IV 08/02/24 13:30 08/03/24 02:32 12.5 MLS/HR Sodium Chloride 1,000 ml @ 75 mls/hr [id number] IV 08/03/24 12:30 08/03/24 12:47 75 MLS/HR Enteral Nutritional Formula 1,000 ml 30ML/HR GT 08/03/24 12:30 Amiodarone HCl 200 mg Q12HR PO 08/03/24 22:00 laboratory and microbiology Laboratory Tests 08/03/24 04:55 Test 08/03/24 04:55 Range/Units Serum Glucose 219 H 74-106 mg/dL Assessment/Plan Impression Acute on chronic respiratory failure Acute COPD exacerbation Pneumonia Atelectasis Patient seen and examined in EDER Events On mechanical ventilation S/p intubation PEEP 10, FiO2 30% Hypovolemic clinically Labs and imaging reviewed ABG reviewed pH 7.62, pCO2 35, pO2 Consistent with metabolic alkalosis Ventilator changes made Management Vent support Titrate to maintain sats 90% or above Sedation for vent synchrony Continue antibiotics F/u cultures Bronchodilators Monitor renal function Monitor electrolytes Supplement as needed Pressors as needed for hemodynamic support To maintain a mean arterial pressure of 65 mmHg DC diuretics Consider Diamox IV fluids DVT prophylaxis Critical care time 35 minutes Dietary Evaluation Review Comments: 1) Ensure Enlive 240ml TID (ordered per ONS protocol) 2) MVI 1 tab daily 3) Continue current POC Expected Outcomes/Goals: To meet >75% estimated needs Fu 3-5 days Plan discussed with: Other (Rn) MAURI LASSITER MD Aug 03, 2024 14:23
[2024-08-03] MEDS ORDERED: DEXTROSE (50%) 50ML SYRG IV SCH (15:00)
[2024-08-03] MEDS: ACCU-CHEK COMFORT CURVE STRIP VI SCH (17:32)
[2024-08-03] MEDS: InsuLIN REG 1unit/0.01ml Soln (100units/ml) SC SCH (17:32)
[2024-08-03] MEDS: AMIODARONE HCL 200 MG TAB PO SCH (23:43)
[2024-08-04] VITALS (108 sets, daily range): BP systolic 86–141; BP diastolic 48–86; PULSE 71–119; RESP 5–19; TEMP 97.5–98.4; O2SAT 88–100
[2024-08-04 06:08] LABS: Basophils # (auto) 0.1 10 ^3/uL (0-0.2); Eosinophils # (auto) 0 10 ^3/uL (0-0.8); Eosinophils % (auto) 0.1 % (0.0-7.0); Hematocrit 38.2 % (36.0-46.0); Hemoglobin 12.7 g/dL (12.2-16.2); Lymphocytes # (auto) 0.1 10 ^3/uL (0.4-5.4); Lymphocytes % (auto) 0.6 % (10.0-50.0); Mean Corpuscular Hemoglobin 29.6 pg (28.0-32.0); Mean Corpuscular Hgb Conc. 33.3 g/dL (32.0-36.0); Mean Corpuscular Volume 88.9 fL (80.0-100.0); Monocytes # (auto) 0.8 10 ^3/uL (0-1.3); Monocytes % (auto) 6.9 % (0.0-12.0); Neutrophils # (auto) 10.1 10 ^3/uL (1.6-8.6); Neutrophils % (auto) 91.4 % (37.0-80.0); Platelet Count (auto) 117 10^3/uL (140-450); Red Cell Distribution Width 17.3 % (11.8-14.3)
--- NOTE | 2024-08-04 06:25 | DVH ---
EXAM: XY CHEST PORTABLE HISTORY: RESP DISTRESS COMPARISON: XY CHEST PORTABLE on DOS: 08/03/24, XY CHEST PORTABLE on DOS: 08/02/24, XY CHEST PORTABLE o n DOS: 08/02/24, XY CHEST PORTABLE on DOS: 07/31/24, XY CHEST PORTABLE on DOS: 07/30/24 TECHNIQUE: Portable AP view of the chest was performed. FINDINGS: Endotracheal tube is re-identified with its tip 2.3 cm above the mary grace. OG tube and left IJ central line are re-identified. No pneumothorax, consolidative infiltrates, or pulmonary edema. The heart is not enlarged. IMPRESSION: 1. Mechanical ventilation with tubes and lines as above. 2. The lungs are clear.
[2024-08-04 06:27] LABS: Albumin 4.2 g/dL (3.2-4.8); Alkaline Phosphatase 55 U/L (46-116); Anion Gap 8 (5-15); BUN/Creatinine Ratio 27.8 (10.0-20.0); Magnesium 2.3 mg/dL (1.6-2.6); Potassium 3.9 mmol/L (3.5-5.1); Sodium 138 mmol/L (136-145); Total Protein 6.3 g/dL (5.7-8.2)
[2024-08-04 06:28] LABS: Alanine Aminotransferase 50 U/L (7-40); Aspartate Aminotransferase 50 U/L (<34); Bilirubin, Total 0.5 mg/dL (0.2-1.0); Blood Urea Nitrogen 47 mg/dL (9-23); Carbon Dioxide 39 mmol/L (20-31); Chloride 91 mmol/L (98-107); Glucose 149 mg/dL (74-106); Phosphorus 6.2 mg/dL (2.4-5.1)
[2024-08-04 06:32] LABS: Base Excess 8.8 mmol/L (-2.0-3.0)
--- NOTE | 2024-08-04 12:04 | DVHPN2 ---
Assessment/Plan Assessment/Plan ICU note Covering for dr Coronado increase RR to 18, STEPHEN improving likely baseline CKD. restart tube feeding. dc clinimix once goal rate reached Physical exam sedated, intubated on mechanical vent PERRLA coarse mechanical breath sounds s1 s2 rrr abdomen soft nontender no le edema Labs ekg imaging reviewed Assessment and plan acute on chronic systolic heart failure afib with rvr acute on chronic hypoxic RF req mechanical vent COPD group E on home O2 with exacerbation STEPHEN on CKD possible VMN HLD NIDDM obesity pneumonia gp gn c/w mechanical vent, decrease rate, repeat gas c/w pressors if needed to maintain map >65 c/w sedation maintain RAAS -3 c/w amio, switch IV to po start tube feeds, dc clinimix after c/w Zosyn, azithro c/w ac trend cr diet tf dvt ppx on ac gi ppx protonix condition critical prognosis poor full code critical care time 35 minutes Plan discussed with: Other Date of Service: Aug 04, 2024 Billing Provider: TAWANA MONTOYA MD Common Visit Codes: [id number] CARE 30-74 MIN TAWANA MONTOYA MD Aug 04, 2024 12:04
[2024-08-04 15:45] LABS: Base Excess 8.8 mmol/L (-2.0-3.0)
--- NOTE | 2024-08-04 16:39 | DVHPN2 ---
Progress Note - Dictate Date Seen: Aug 04, 2024 Medical Necessity Reason Pt with a Central, PICC or Fol: Yes The following are medically ne: Central Line, Luis Catheter Reason for luis catheter: Strict I&O vital signs Vital Sign Date Time Temp Pulse Resp B/P (MAP) Pulse Ox O2 Delivery O2 Flow Rate FiO2 08/04/24 16:30 74 18 111/63 (79) 100 08/04/24 16:00 Mechanical Ventilator+ 30 30 08/04/24 16:00 98.4 98.4 08/02/24 11:48 3 Total Intake and Output 08/03/24 08/03/24 08/04/24 14:59 22:59 06:59 Intake Total 1254.62 ml 1199.00 ml 1247.5 ml Output Total 700 ml 650 ml Balance 1254.62 ml 499.00 ml 597.5 ml medications Current Medications Medications Dose Ordered Sig/Adam Route Start Time Stop Time Status Last Admin Dose Admin Sodium Chloride 10 ml Q8HR IV 07/28/24 14:00 08/04/24 05:40 10 ML Acetaminophen/ Hydrocodone Bitart 1 tab Q4HP PRN PO 07/28/24 13:30 07/29/24 21:05 1 TAB Ondansetron HCl 4 mg Q4HP PRN IV 07/28/24 13:30 Docusate Sodium 100 mg BIDPRN PRN PO 07/28/24 13:30 Acetaminophen 650 mg Q6HP PRN PO 07/28/24 13:30 Nitroglycerin 0.4 mg Q5MINP PRN SL 07/28/24 13:30 Apixaban 5 mg BID PO 07/28/24 22:00 08/04/24 10:32 5 MG Budesonide 0.5 mg BID NEB 07/28/24 22:00 08/04/24 05:50 0.5 MG Atorvastatin Calcium 80 mg HS PO 07/28/24 22:00 08/03/24 23:42 80 MG Citalopram Hydrobromide 40 mg DAILY PO 07/29/24 10:00 08/04/24 10:31 40 MG Methylprednisolone Sodium Succinate 40 mg BID IV 07/28/24 22:00 08/04/24 10:30 40 MG Azithromycin 250 ml @ 125 mls/hr DAILY IV 07/29/24 10:00 08/04/24 10:32 125 MLS/HR Hydralazine HCl 10 mg Q6HP PRN IV 07/28/24 16:00 07/28/24 18:03 10 MG Albuterol 2.5 mg Q4HPRN PRN NEB 07/29/24 12:45 08/03/24 21:58 2.5 MG Ipratropium [place] 0.5 mg Q4HPRN PRN NEB 07/29/24 12:45 08/02/24 12:50 0.5 MG Morphine Sulfate 2 mg Q30M PRN IV 07/29/24 14:45 Ipratropium [place] 0.5 mg Q4HR NEB 07/30/24 02:00 08/04/24 13:55 0.5 MG Levalbuterol HCl 1.25 mg Q4HR NEB 07/30/24 02:00 08/04/24 13:55 1.25 MG Metoprolol Tartrate 25 mg BID PO 07/31/24 22:00 08/02/24 08:47 25 MG Lorazepam 0.5 mg Q6HP PRN IV 08/01/24 15:30 08/02/24 01:23 0.5 MG Piperacillin Sod/ Tazobactam Sod 100 ml @ 25 mls/hr Q8HR IV 08/01/24 22:00 08/04/24 05:39 25 MLS/HR Amino Acids 0 ml @ 0 mls/hr PER PHARMACY IV 08/01/24 15:30 Temazepam 15 mg HSPRN PRN PO 08/01/24 15:30 08/01/24 23:07 15 MG Amino Acids/ Electrolytes/ Dextrose 1,000 ml @ 41 mls/hr DAILY@2200 IV 08/01/24 22:00 08/03/24 23:39 41 MLS/HR Norepinephrine Bitartrate 250 ml @ 3.75 mls/hr Q24H IV 08/02/24 13:30 08/03/24 09:50 3.75 MLS/HR Propofol 100 ml @ 2.79 mls/hr Q24H IV 08/02/24 13:30 Midazolam HCl 50 ml @ 1 mls/hr Q24H IV 08/02/24 13:30 08/04/24 10:32 10 MLS/HR Fentanyl Citrate 250 ml @ 2.5 mls/hr Q24H IV 08/02/24 13:30 08/04/24 12:45 20 MLS/HR Sodium Chloride 1,000 ml @ 75 mls/hr [id number] IV 08/03/24 12:30 08/03/24 12:47 75 MLS/HR Enteral Nutritional Formula 1,000 ml 30ML/HR GT 08/03/24 12:30 Amiodarone HCl 200 mg Q12HR PO 08/03/24 22:00 08/04/24 10:30 200 MG Diagnostic Test (Pha) 1 strip Q6HR 08/03/24 18:00 08/04/24 11:51 1 STRIP Insulin Human Regular FOLLOW SLIDING SCALE Q6HR SC 08/03/24 18:00 08/04/24 11:52 4 UNITS Dextrose 50 ml UD IV 08/03/24 15:00 laboratory and microbiology Laboratory Tests 08/04/24 05:00 Test 08/04/24 05:00 Range/Units Serum Glucose 149 H 74-106 mg/dL Assessment/Plan Impression Acute on chronic respiratory failure Acute COPD exacerbation Pneumonia Atelectasis Patient seen and examined in EDER Events On mechanical ventilation S/p intubation PEEP 8, FiO2 30% Labs and imaging reviewed ABG reviewed Management Vent support Titrate to maintain sats 90% or above Sedation holiday in AM If patient follows commands, proceed to weaning trial Pressure support 08/24, extubate when ready Continue antibiotics F/u cultures Bronchodilators Monitor renal function Monitor electrolytes Supplement as needed Pressors as needed for hemodynamic support To maintain a mean arterial pressure of 65 mmHg DVT prophylaxis Critical care time 35 minutes Dietary Evaluation Review Comments: 1) Ensure Enlive 240ml TID (ordered per ONS protocol) 2) MVI 1 tab daily 3) Continue current POC Expected Outcomes/Goals: To meet >75% estimated needs Fu 3-5 days Plan discussed with: Other (Rn) MAURI LASSITER MD Aug 04, 2024 16:39
[2024-08-05] VITALS (106 sets, daily range): BP systolic 91–161; BP diastolic 54–96; PULSE 75–126; RESP 11–19; TEMP 96.9–99; O2SAT 95–100
[2024-08-05 05:15] LABS: Basophils # (auto) 0 10 ^3/uL (0-0.2); Basophils % (auto) 0.1 % (0.0-2.0); Eosinophils # (auto) 0 10 ^3/uL (0-0.8); Hematocrit 34.9 % (36.0-46.0); Hemoglobin 11.2 g/dL (12.2-16.2); Lymphocytes # (auto) 0.1 10 ^3/uL (0.4-5.4); Lymphocytes % (auto) 0.9 % (10.0-50.0); Mean Corpuscular Hemoglobin 28.8 pg (28.0-32.0); Mean Corpuscular Hgb Conc. 32.3 g/dL (32.0-36.0); Mean Corpuscular Volume 89.4 fL (80.0-100.0); Monocytes # (auto) 0.6 10 ^3/uL (0-1.3); Monocytes % (auto) 7.8 % (0.0-12.0); Neutrophils # (auto) 7.4 10 ^3/uL (1.6-8.6); Neutrophils % (auto) 91.2 % (37.0-80.0); Nucleated Red Blood Cells % 0.2 %; Platelet Count (auto) 91 10^3/uL (140-450); Red Cell Distribution Width 17.5 % (11.8-14.3); White Blood Cell 8.1 10^3/uL (4.4-10.8)
[2024-08-05 05:32] LABS: Alanine Aminotransferase 39 U/L (7-40); Anion Gap 8 (5-15); Aspartate Aminotransferase 31 U/L (<34); BUN/Creatinine Ratio 28.7 (10.0-20.0); Calcium 9.6 mg/dL (8.7-10.4); Magnesium 2.3 mg/dL (1.6-2.6); Potassium 3.6 mmol/L (3.5-5.1); Sodium 141 mmol/L (136-145)
[2024-08-05 05:33] LABS: Albumin 3.7 g/dL (3.2-4.8); Bilirubin, Total 0.5 mg/dL (0.2-1.0); Phosphorus 3.1 mg/dL (2.4-5.1)
[2024-08-05 05:39] LABS: Chloride 97 mmol/L (98-107)
[2024-08-05 05:40] LABS: Alkaline Phosphatase 43 U/L (46-116); Blood Urea Nitrogen 35 mg/dL (9-23); Carbon Dioxide 36 mmol/L (20-31); Glucose 164 mg/dL (74-106); Total Protein 5.5 g/dL (5.7-8.2)
[2024-08-05 06:30] LABS: Base Excess 9.3 mmol/L (-2.0-3.0)
--- NOTE | 2024-08-05 10:36 | DVH ---
INDICATION: PT INTUBATED TECHNIQUE: Portable AP view of the chest was performed. COMPARISON: XY CHEST PORTABLE on DOS: 08/04/24, XY CHEST PORTABLE on DOS: 08/03/24, XY CHEST PORTABLE o n DOS: 08/02/24, XY CHEST PORTABLE on DOS: 08/02/24, XY CHEST PORTABLE on DOS: 07/31/24, XY CHEST PORTAB LE on DOS: 08/04/24 FINDINGS: Endotracheal tube is re-identified with its tip 2.3 cm above the mary grace. OG tube and left IJ central line are re-identified. No pneumothorax, consolidative infiltrates, or pulmonary edema. The heart is not enlarged. IMPRESSION: 1. Mechanical ventilation with tubes and lines as above. 2. The lungs are clear.
--- NOTE | 2024-08-05 14:12 | DVHPN2 ---
Progress Note Date Seen: Aug 05, 2024 Medical Necessity Reason Pt with a Central, PICC or Fol: Yes The following are medically ne: Central Line, Luis Catheter Reason for luis catheter: Strict I&O Subjective Patient reports: No new complaints Review of Systems: HEENT:Normal, CVS:Normal, RESPIRATORY:Normal, GI:Normal, :Normal, MSK:Normal, NEURO:Normal Objective vital signs Vital Sign Date Time Temp Pulse Resp B/P (MAP) Pulse Ox O2 Delivery O2 Flow Rate FiO2 08/05/24 13:55 87 18 110/67 (81) 99 30 08/05/24 12:00 Mechanical Ventilator+ 08/05/24 12:00 98.0 98.0 Total Intake and Output 08/04/24 08/04/24 08/05/24 15:00 23:00 07:00 Intake Total 1549 ml 1407.0 ml 1281.0 ml Output Total 625 ml 1200 ml Balance 1549 ml 782.0 ml 81.0 ml medications Current Medications Medications Dose Ordered Sig/Adam Route Start Time Stop Time Status Last Admin Dose Admin Sodium Chloride 10 ml Q8HR IV 07/28/24 14:00 08/05/24 06:00 10 ML Acetaminophen/ Hydrocodone Bitart 1 tab Q4HP PRN PO 07/28/24 13:30 07/29/24 21:05 1 TAB Ondansetron HCl 4 mg Q4HP PRN IV 07/28/24 13:30 Docusate Sodium 100 mg BIDPRN PRN PO 07/28/24 13:30 Acetaminophen 650 mg Q6HP PRN PO 07/28/24 13:30 Nitroglycerin 0.4 mg Q5MINP PRN SL 07/28/24 13:30 Apixaban 5 mg BID PO 07/28/24 22:00 08/05/24 10:52 5 MG Budesonide 0.5 mg BID NEB 07/28/24 22:00 08/05/24 09:37 0.5 MG Atorvastatin Calcium 80 mg HS PO 07/28/24 22:00 08/04/24 21:52 80 MG Citalopram Hydrobromide 40 mg DAILY PO 07/29/24 10:00 08/05/24 10:51 40 MG Methylprednisolone Sodium Succinate 40 mg BID IV 07/28/24 22:00 08/05/24 10:51 40 MG Azithromycin 250 ml @ 125 mls/hr DAILY IV 07/29/24 10:00 08/05/24 10:52 125 MLS/HR Hydralazine HCl 10 mg Q6HP PRN IV 07/28/24 16:00 07/28/24 18:03 10 MG Albuterol 2.5 mg Q4HPRN PRN NEB 07/29/24 12:45 08/05/24 04:10 2.5 MG Ipratropium [place] 0.5 mg Q4HPRN PRN NEB 07/29/24 12:45 08/05/24 04:10 0.5 MG Morphine Sulfate 2 mg Q30M PRN IV 07/29/24 14:45 Ipratropium [place] 0.5 mg Q4HR NEB 07/30/24 02:00 08/05/24 13:55 0.5 MG Levalbuterol HCl 1.25 mg Q4HR NEB 07/30/24 02:00 08/05/24 13:55 1.25 MG Metoprolol Tartrate 25 mg BID PO 07/31/24 22:00 08/02/24 08:47 25 MG Lorazepam 0.5 mg Q6HP PRN IV 08/01/24 15:30 08/02/24 01:23 0.5 MG Piperacillin Sod/ Tazobactam Sod 100 ml @ 25 mls/hr Q8HR IV 08/01/24 22:00 08/05/24 06:00 25 MLS/HR Amino Acids 0 ml @ 0 mls/hr PER PHARMACY IV 08/01/24 15:30 Temazepam 15 mg HSPRN PRN PO 08/01/24 15:30 08/01/24 23:07 15 MG Amino Acids/ Electrolytes/ Dextrose 1,000 ml @ 41 mls/hr DAILY@2200 IV 08/01/24 22:00 08/04/24 21:53 41 MLS/HR Norepinephrine Bitartrate 250 ml @ 3.75 mls/hr Q24H IV 08/02/24 13:30 08/03/24 09:50 3.75 MLS/HR Propofol 100 ml @ 2.79 mls/hr Q24H IV 08/02/24 13:30 Midazolam HCl 50 ml @ 1 mls/hr Q24H IV 08/02/24 13:30 08/05/24 02:21 9 MLS/HR Fentanyl Citrate 250 ml @ 2.5 mls/hr Q24H IV 08/02/24 13:30 08/05/24 02:26 17.5 MLS/HR Sodium Chloride 1,000 ml @ 75 mls/hr [id number] IV 08/03/24 12:30 08/05/24 06:47 75 MLS/HR Enteral Nutritional Formula 1,000 ml 30ML/HR GT 08/03/24 12:30 Amiodarone HCl 200 mg Q12HR PO 08/03/24 22:00 08/05/24 10:51 200 MG Diagnostic Test (Pha) 1 strip Q6HR 08/03/24 18:00 08/05/24 12:28 1 STRIP Insulin Human Regular FOLLOW SLIDING SCALE Q6HR SC 08/03/24 18:00 08/05/24 12:31 4 UNITS Dextrose 50 ml UD IV 08/03/24 15:00 Examination: GENERAL:Normal, HEENT:Normal, NECK:Normal, LUNGS:Normal, LUNGS:Abnormal (intubated, rhonchi), CVS:Normal, ABDOMEN:Normal, MSK:Normal, SKIN:Normal, NEURO:Normal, NEURO:Abnormal (sedated), :Normal laboratory and microbiology Laboratory Tests 08/05/24 04:30 Test 08/05/24 04:30 Range/Units Serum Glucose 164 H 74-106 mg/dL Microbiology Date/Time Source Procedure Growth Status 08/02/24 16:50 Sputum Gram Stain - Final Complete 08/02/24 16:50 Sputum Respiratory Culture - Final Complete 07/30/24 10:20 Urine - [place] Urine Culture - Final Complete 07/30/24 04:23 Nose MRSA Screen - Final Complete 07/28/24 08:46 Blood Blood Culture - Final NO GROWTH AFTER 5 DAYS OF INCUBATION. Complete Problem List/Assessment/Plan Problem List/Assessment/Plan #1 acute on chronic resp failure: on acv #2 ?pneumonia- gram positive/neg: iv zosyn, zithromax #3 htn #4 dm: ssi #5 a fib with rvr with secondary hypercoagulable state: dc xarelto #6 morbid obesity #7 acute on chronic systolic/diastolic heart failure: dc lasix iv #8 ckd stage 3 #9 nutrition: tube feedings #10 thrombocytopenia: hold xarelto advance care planning- full code- time spent 19 mins Plan discussed with: Other (rn) My Orders My Orders Orders - KEILA FORD MD Procedure Category Date Status Time Clinimix Per Pharmacy [facility] 08/04/24 In Process 22:00 Comprehensive LAB 08/06/24 Verified Metabolic Panel 04:00 Magnesium LAB 08/06/24 Verified 04:00 Phosphorus LAB 08/06/24 Verified 04:00 Triglycerides LAB 08/06/24 Verified 04:00 Clinimix Per Pharmacy [facility] 08/05/24 In Process 22:00 Dietary Evaluation Review Comments: 1) Ensure Enlive 240ml TID (ordered per [facility] protocol) 2) MVI 1 tab daily 3) Continue current POC Expected Outcomes/Goals: To meet >75% estimated needs Fu 3-5 days Critical Care Time (mins): 49 (critical care time excluding procedures is 49 mins) Date of Service: Aug 05, 2024 Billing Provider: KEILA FORD MD Common Visit Codes: [id number] CARE 30-74 MIN KEILA FORD MD Aug 05, 2024 14:12
[2024-08-05] MEDS ORDERED: VANCOMYCIN PER PHARMACY 0 MG IV SCH (14:15)
--- NOTE | 2024-08-05 14:23 | DVH ---
CHEST RADIOGRAPH Indication: ET TUBE ADVANCEMENT/CONFIRM PLACEMENT Technique: Single frontal view of the chest was obtained COMPARISON: None FINDINGS: Nasogastric tube projects towards the stomach. Left IJ catheter tip projects over the SVC. The cardiac silhouette is enlarged. The lungs demonstrate bilateral patchy airspace opacities. The pu lmonary vasculature is prominent. There is no pleural effusion. There is no pneumothorax. Aortic athe rosclerotic disease. IMPRESSION: Cardiomegaly with pulmonary vascular congestion and bilateral patchy airspace opacities.
[2024-08-05] MEDS: VANCOMYCIN 1GM/200ML PM 250 ML IV SCH (15:15)
--- NOTE | 2024-08-05 15:22 | MEDREC ---
[facility] Intervention Section I [facility] Intervention: Review courses of therapy (8 DAYS ON AZITHROMYCIN - PLEASE CONSIDER D/C AZITHROMYCIN (COURSE OF THERAPY COMPLETE)), Time Sensitive RUSSEL AREVALO PHARMACIST Aug 05, 2024 15:22
[2024-08-05] MEDS: VANCOMYCIN 1GM/200ML PM 200 ML IV ONE (21:07)
[2024-08-05] MEDS: methylPREDNISolone SOD SUCC 40 MG/ML VL IV SCH (21:30)
[2024-08-06] VITALS (105 sets, daily range): BP systolic 90–149; BP diastolic 53–89; PULSE 76–102; RESP 14–22; TEMP 98–98.7; O2SAT 97–100
--- NOTE | 2024-08-06 05:33 | DVH ---
EXAM: XR Chest, 1 View CLINICAL INDICATION: Pain TECHNIQUE: Frontal view of the chest. COMPARISON: XR Chest dated 08/05/2024 FINDINGS: LUNGS AND PLEURAL SPACES: Pulmonary venous congestion. No consolidation. No pneumothorax. HEART: Unremarkable. No cardiomegaly. MEDIASTINUM: Unremarkable. Normal mediastinal contour. BONES/JOINTS: Unremarkable. No acute fracture. TUBES, LINES AND DEVICES: The endotracheal tube (ETT) is in satisfactory position. Left internal ju gular central venous catheter tip in the superior vena cava. IMPRESSION: Pulmonary venous congestion.
[2024-08-06 05:42] LABS: Basophils # (auto) 0 10 ^3/uL (0-0.2); Basophils % (auto) 0.1 % (0.0-2.0); Eosinophils # (auto) 0 10 ^3/uL (0-0.8); Hemoglobin 11.4 g/dL (12.2-16.2); Lymphocytes # (auto) 0.1 10 ^3/uL (0.4-5.4); Mean Corpuscular Hemoglobin 29.1 pg (28.0-32.0); Mean Corpuscular Hgb Conc. 32.6 g/dL (32.0-36.0); Mean Corpuscular Volume 89.2 fL (80.0-100.0); Monocytes # (auto) 0.7 10 ^3/uL (0-1.3); Monocytes % (auto) 7.4 % (0.0-12.0); Neutrophils # (auto) 9.1 10 ^3/uL (1.6-8.6); Neutrophils % (auto) 91.5 % (37.0-80.0); Nucleated Red Blood Cells % 0.1 %; Platelet Count (auto) 95 10^3/uL (140-450); Red Blood Cells 3.93 10^6/uL (4.0-5.20); Red Cell Distribution Width 17.6 % (11.8-14.3)
[2024-08-06 05:56] LABS: INR 1.05 (0.9-1.15); Partial Thromboplastin Time 20.8 SEC (24.5-34.5); Prothrombin Time 11.1 sec (9.3-11.8)
[2024-08-06 06:07] LABS: Alkaline Phosphatase 52 U/L (46-116); Anion Gap 8 (5-15); BUN/Creatinine Ratio 29.8 (10.0-20.0); Chloride 99 mmol/L (98-107); Magnesium 2.3 mg/dL (1.6-2.6); Potassium 3.7 mmol/L (3.5-5.1); Sodium 140 mmol/L (136-145); Total Protein 5.7 g/dL (5.7-8.2); Triglycerides 84 mg/dL (< 150)
[2024-08-06 06:08] LABS: Albumin 3.9 g/dL (3.2-4.8); Bilirubin, Total 0.5 mg/dL (0.2-1.0); Carbon Dioxide 33 mmol/L (20-31); Glucose 128 mg/dL (74-106); Phosphorus 3.5 mg/dL (2.4-5.1)
[2024-08-06 06:09] LABS: Alanine Aminotransferase 57 U/L (7-40); Aspartate Aminotransferase 49 U/L (<34); Blood Urea Nitrogen 36 mg/dL (9-23)
[2024-08-06 07:18] LABS: Base Excess 6.3 mmol/L (-2.0-3.0)
--- NOTE | 2024-08-06 11:46 | DVHPN2 ---
Progress Note Date Seen: Aug 06, 2024 Medical Necessity Reason Pt with a Central, PICC or Fol: Yes The following are medically ne: Central Line, Luis Catheter Reason for luis catheter: Strict I&O Subjective Patient reports: No new complaints Review of Systems: HEENT:Normal, CVS:Normal, RESPIRATORY:Normal, GI:Normal, :Normal, MSK:Normal, NEURO:Normal Objective vital signs Vital Sign Date Time Temp Pulse Resp B/P (MAP) Pulse Ox O2 Delivery O2 Flow Rate FiO2 08/06/24 10:32 85 18 110/66 98 30 08/06/24 10:15 Mechanical Ventilator+ 08/06/24 08:00 98.7 98.7 Total Intake and Output 08/05/24 08/05/24 08/06/24 15:00 23:00 07:00 Intake Total 1275.0 ml 993.0 ml 476.5 ml Output Total 900 ml 550 ml Balance 1275.0 ml 93.0 ml -73.5 ml medications Current Medications Medications Dose Ordered Sig/Adam Route Start Time Stop Time Status Last Admin Dose Admin Sodium Chloride 10 ml Q8HR IV 07/28/24 14:00 08/06/24 05:37 10 ML Docusate Sodium 100 mg BIDPRN PRN PO 07/28/24 13:30 Acetaminophen 650 mg Q6HP PRN PO 07/28/24 13:30 Nitroglycerin 0.4 mg Q5MINP PRN SL 07/28/24 13:30 Budesonide 0.5 mg BID NEB 07/28/24 22:00 08/06/24 05:41 0.5 MG Azithromycin 250 ml @ 125 mls/hr DAILY IV 07/29/24 10:00 08/06/24 09:38 125 MLS/HR Hydralazine HCl 10 mg Q6HP PRN IV 07/28/24 16:00 07/28/24 18:03 10 MG Albuterol 2.5 mg Q4HPRN PRN NEB 07/29/24 12:45 08/05/24 04:10 2.5 MG Ipratropium [place] 0.5 mg Q4HPRN PRN NEB 07/29/24 12:45 08/05/24 04:10 0.5 MG Morphine Sulfate 2 mg Q30M PRN IV 07/29/24 14:45 Ipratropium [place] 0.5 mg Q4HR NEB 07/30/24 02:00 08/06/24 10:01 0.5 MG Levalbuterol HCl 1.25 mg Q4HR NEB 07/30/24 02:00 08/06/24 10:01 1.25 MG Piperacillin Sod/ Tazobactam Sod 100 ml @ 25 mls/hr Q8HR IV 08/01/24 22:00 08/06/24 05:37 25 MLS/HR Norepinephrine Bitartrate 250 ml @ 3.75 mls/hr Q24H IV 08/02/24 13:30 08/03/24 09:50 3.75 MLS/HR Propofol 100 ml @ 2.79 mls/hr Q24H IV 08/02/24 13:30 Midazolam HCl 50 ml @ 1 mls/hr Q24H IV 08/02/24 13:30 08/05/24 02:21 9 MLS/HR Fentanyl Citrate 250 ml @ 2.5 mls/hr Q24H IV 08/02/24 13:30 08/06/24 01:00 12.5 MLS/HR Enteral Nutritional Formula 1,000 ml 30ML/HR GT 08/03/24 12:30 Amiodarone HCl 200 mg Q12HR PO 08/03/24 22:00 08/06/24 09:38 200 MG Diagnostic Test (Pha) 1 strip Q6HR 08/03/24 18:00 08/06/24 06:09 1 STRIP Insulin Human Regular FOLLOW SLIDING SCALE Q6HR SC 08/03/24 18:00 08/05/24 18:48 2 UNITS Dextrose 50 ml UD IV 08/03/24 15:00 Methylprednisolone Sodium Succinate 40 mg Q8HR IV 08/05/24 22:00 08/06/24 05:38 40 MG Vancomycin HCl 0 ml @ 0 mls/hr UD IV 08/05/24 14:15 Examination: GENERAL:Normal, HEENT:Normal, NECK:Normal, LUNGS:Normal, LUNGS:Abnormal (RHONCHI), CVS:Normal, ABDOMEN:Normal, MSK:Normal, SKIN:Normal, NEURO:Normal, :Normal laboratory and microbiology Laboratory Tests 08/06/24 04:45 Test 08/06/24 04:45 Range/Units Serum Glucose 128 H 74-106 mg/dL Microbiology Date/Time Source Procedure Growth Status 08/02/24 16:50 Sputum Gram Stain - Final Complete 08/02/24 16:50 Sputum Respiratory Culture - Final Complete 07/30/24 10:20 Urine - [place] Urine Culture - Final Complete 07/30/24 04:23 Nose MRSA Screen - Final Complete 07/28/24 08:46 Blood Blood Culture - Final NO GROWTH AFTER 5 DAYS OF INCUBATION. Complete Problem List/Assessment/Plan Problem List/Assessment/Plan #1 acute on chronic resp failure: on acv #2 ?pneumonia- gram positive/neg: iv zosyn, zithromax, CT CHEST #3 htn #4 dm: ssi #5 a fib with rvr with secondary hypercoagulable state: dc xarelto #6 morbid obesity #7 acute on chronic systolic/diastolic heart failure: lasix iv #8 ckd stage 3 #9 nutrition: tube feedings #10 thrombocytopenia: hold xarelto advance care planning- full code- time spent 19 mins Plan discussed with: Daughter My Orders My Orders Orders - KEILA FORD MD Procedure Category Date Status Time Clinimix Per Pharmacy [facility] 08/05/24 In Process 22:00 Respiratory Misc. RT 08/05/24 Transmitted Order 14:05 Methylprednisolone [facility] 08/05/24 In Process Sod Succ (Solu Medrol 22:00 Vancomycin Per [facility] 08/05/24 In Process Pharmacy 14:15 Chest Portable XY 08/06/24 Resulted 06:00 Abg W/ Co-Ox RT 08/06/24 Logged 06:00 Vancomycin [facility] 08/06/24 Logged 1.25gm/250ml 16:00 Vancomycin,Random LAB 08/07/24 Verified 04:00 Creatinine LAB 08/07/24 Verified 04:00 Cpap Trial For Am ORDERS 08/06/24 Transmitted 11:41 Complete Blood Count LAB 08/07/24 Verified 06:00 Comprehensive LAB 08/07/24 Verified Metabolic Panel 06:00 Abg W/ Co-Ox RT 08/07/24 Transmitted 06:00 Dietary Evaluation Review Comments: 1) Ensure Enlive 240ml TID (ordered per [facility] protocol) 2) MVI 1 tab daily 3) Continue current POC Expected Outcomes/Goals: To meet >75% estimated needs Fu 3-5 days Critical Care Time (mins): 51 (critical care time including dw family and excluding procedures is 51 mins) Date of Service: Aug 06, 2024 Billing Provider: KEILA FORD MD Common Visit Codes: [id number] CARE 30-74 MIN KEILA FORD MD Aug 06, 2024 11:46
[2024-08-06] MEDS: FUROSEMIDE 20 MG/2 ML VIAL IV ONE (13:25)
[2024-08-06] MEDS: VANCOMYCIN 1.25GM/250ML 250 ML IV ONE (16:55)
[2024-08-06] MEDS: Jevity 1.2 Cal/Fiber 1 Liter GT SCH (22:57)
[2024-08-07] VITALS (107 sets, daily range): BP systolic 95–207; BP diastolic 55–116; PULSE 78–141; RESP 11–20; TEMP 98.3–99.4; O2SAT 94–100
--- NOTE | 2024-08-07 01:37 | DVH ---
CHEST RADIOGRAPH Indication: respiratory failure Technique: Single frontal view of the chest was obtained COMPARISON: XY CHEST PORTABLE on DOS: 08/06/24, XY CHEST PORTABLE on DOS: 08/05/24, XY CHEST PORTABLE o n DOS: 08/05/24, XY CHEST PORTABLE on DOS: 08/04/24, XY CHEST PORTABLE on DOS: 08/03/24 FINDINGS: Lines and Tubes: Unchanged. Lungs: Clear Pleura: No effusion. No pneumothorax. Cardiomediastinal contours: Unremarkable Bones: Unremarkable IMPRESSION: 1. No acute disease. 2. Lines and tubes unchanged.
--- NOTE | 2024-08-07 03:57 | DVH ---
Exam: CT CHEST WITHOUT CONTRAST History: COPD Comparison Study: None TECHNIQUE: Multidetector CT of the abdomen was performed from lung bases to pubic symphysis. Imaging was performed without IV contrast. Axial, coronal and sagittal multiplanar reformats were obtained fr om the axial data set by the technologist. Radiation Dose Information: CT Dose: CTDI volume is 25 mGy. Dose-length product is 250 mGy*cm FINDINGS: Evaluation of solid organs is limited due to lack of intravenous contrast use. Findings: Lung Bases: No acute or significant lung base finding. Normal heart size. No pleural or pericardial effusion. Liver: The liver is normal in size. No focal lesions. Gallbladder and Biliary Tree: Unremarkable Spleen: Unremarkable Pancreas: The pancreas is grossly normal in appearance. Adrenal Glands: Unremarkable Kidneys: Kidneys are grossly normal without calculi or hydronephrosis. Bladder: Grossly unremarkable for degree of distention. Bowel: The stomach is grossly normal in appearance. Small bowel and colon are normal in caliber and d istribution. The appendix is not visualized; however, no secondary findings of acute appendicitis id entified. Ascites: Absent Lymphadenopathy: No mesenteric, retroperitoneal or periportal lymphadenopathy. Abdominal Wall and Mesentery: Unremarkable. Vasculature: The visualized abdominal aorta is normal in size and caliber. Evaluation of abdominal a nd pelvic vessels is limited due to lack of intravenous contrast. Pelvic Organs: Unremarkable Musculoskeletal: No aggressive focal bony lesions, acute fractures or dislocation. Soft tissues: Unremarkable IMPRESSION: No acute abdominal or pelvic finding.a COPD. Nasogastric tube and endotracheal tube are in appropriate position. Radiation optimization: All CT scans at this facility use at least one of these dose optimization michael hniques: automated exposure control mA and/or kV adjustment per patient size (includes targeted exam s where dose is matched to clinical indication) or iterative reconstruction.
[2024-08-07 04:46] LABS: Basophils # (auto) 0 10 ^3/uL (0-0.2); Basophils % (auto) 0.1 % (0.0-2.0); Eosinophils # (auto) 0 10 ^3/uL (0-0.8); Hematocrit 34.9 % (36.0-46.0); Hemoglobin 11.5 g/dL (12.2-16.2); Lymphocytes # (auto) 0.1 10 ^3/uL (0.4-5.4); Lymphocytes % (auto) 0.8 % (10.0-50.0); Mean Corpuscular Hemoglobin 29.1 pg (28.0-32.0); Mean Corpuscular Hgb Conc. 32.8 g/dL (32.0-36.0); Mean Corpuscular Volume 88.7 fL (80.0-100.0); Monocytes # (auto) 0.9 10 ^3/uL (0-1.3); Monocytes % (auto) 8.2 % (0.0-12.0); Neutrophils # (auto) 10.5 10 ^3/uL (1.6-8.6); Neutrophils % (auto) 90.9 % (37.0-80.0); Platelet Count (auto) 86 10^3/uL (140-450); Red Blood Cells 3.94 10^6/uL (4.0-5.20); Red Cell Distribution Width 17.2 % (11.8-14.3); White Blood Cell 11.5 10^3/uL (4.4-10.8)
[2024-08-07 05:03] LABS: Alanine Aminotransferase 84 U/L (7-40); Alkaline Phosphatase 61 U/L (46-116); Anion Gap 7 (5-15); Aspartate Aminotransferase 58 U/L (<34); BUN/Creatinine Ratio 27.4 (10.0-20.0); Bilirubin, Total 0.5 mg/dL (0.2-1.0); Blood Urea Nitrogen 37 mg/dL (9-23); Calcium 9.9 mg/dL (8.7-10.4); Carbon Dioxide 33 mmol/L (20-31); Chloride 101 mmol/L (98-107); Glucose 126 mg/dL (74-106); Potassium 3.7 mmol/L (3.5-5.1); Sodium 141 mmol/L (136-145); Total Protein 5.9 g/dL (5.7-8.2)
[2024-08-07 06:21] LABS: Base Excess 2.1 mmol/L (-2.0-3.0)
[2024-08-07 08:53] LABS: Base Excess 7.3 mmol/L (-2.0-3.0)
[2024-08-07] MEDS: FUROSEMIDE 20 MG/2 ML VIAL IV SCH (10:25)
--- NOTE | 2024-08-07 11:10 | DVHPN2 ---
Progress Note Date Seen: Aug 07, 2024 Medical Necessity Reason Pt with a Central, PICC or Fol: Yes The following are medically ne: Central Line, Luis Catheter Reason for luis catheter: Strict I&O Subjective Patient reports: No new complaints Review of Systems: HEENT:Normal, CVS:Normal, RESPIRATORY:Normal, GI:Normal, :Normal, MSK:Normal, NEURO:Normal Objective vital signs Vital Sign Date Time Temp Pulse Resp B/P (MAP) Pulse Ox O2 Delivery O2 Flow Rate FiO2 08/07/24 10:25 134/72 08/07/24 10:07 91 18 97 30 08/07/24 08:00 98.3 98.3 08/07/24 06:00 Mechanical Ventilator+ Total Intake and Output 08/06/24 08/06/24 08/07/24 15:00 23:00 07:00 Intake Total 687.5 ml 735 ml 535.0 ml Output Total 1100 ml 550 ml Balance 687.5 ml -365 ml -15.0 ml medications Current Medications Medications Dose Ordered Sig/Adam Route Start Time Stop Time Status Last Admin Dose Admin Sodium Chloride 10 ml Q8HR IV 07/28/24 14:00 08/07/24 05:42 10 ML Docusate Sodium 100 mg BIDPRN PRN PO 07/28/24 13:30 Acetaminophen 650 mg Q6HP PRN PO 07/28/24 13:30 Nitroglycerin 0.4 mg Q5MINP PRN SL 07/28/24 13:30 Budesonide 0.5 mg BID NEB 07/28/24 22:00 08/07/24 05:59 0.5 MG Azithromycin 250 ml @ 125 mls/hr DAILY IV 07/29/24 10:00 08/07/24 10:25 125 MLS/HR Hydralazine HCl 10 mg Q6HP PRN IV 07/28/24 16:00 07/28/24 18:03 10 MG Albuterol 2.5 mg Q4HPRN PRN NEB 07/29/24 12:45 08/05/24 04:10 2.5 MG Ipratropium [place] 0.5 mg Q4HPRN PRN NEB 07/29/24 12:45 08/05/24 04:10 0.5 MG Morphine Sulfate 2 mg Q30M PRN IV 07/29/24 14:45 Ipratropium [place] 0.5 mg Q4HR NEB 07/30/24 02:00 08/07/24 10:10 0.5 MG Levalbuterol HCl 1.25 mg Q4HR NEB 07/30/24 02:00 08/07/24 10:10 1.25 MG Piperacillin Sod/ Tazobactam Sod 100 ml @ 25 mls/hr Q8HR IV 08/01/24 22:00 08/07/24 05:46 25 MLS/HR Norepinephrine Bitartrate 250 ml @ 3.75 mls/hr Q24H IV 08/02/24 13:30 08/03/24 09:50 3.75 MLS/HR Propofol 100 ml @ 2.79 mls/hr Q24H IV 08/02/24 13:30 Midazolam HCl 50 ml @ 1 mls/hr Q24H IV 08/02/24 13:30 08/05/24 02:21 9 MLS/HR Fentanyl Citrate 250 ml @ 2.5 mls/hr Q24H IV 08/02/24 13:30 08/07/24 01:33 20 MLS/HR Enteral Nutritional Formula 1,000 ml 30ML/HR GT 08/03/24 12:30 08/06/24 22:57 1,000 ML Amiodarone HCl 200 mg Q12HR PO 08/03/24 22:00 08/07/24 10:26 200 MG Diagnostic Test (Pha) 1 strip Q6HR 08/03/24 18:00 08/07/24 05:45 1 STRIP Insulin Human Regular FOLLOW SLIDING SCALE Q6HR SC 08/03/24 18:00 08/07/24 05:44 2 UNITS Dextrose 50 ml UD IV 08/03/24 15:00 Methylprednisolone Sodium Succinate 40 mg Q8HR IV 08/05/24 22:00 08/07/24 05:42 40 MG Vancomycin HCl 0 ml @ 0 mls/hr UD IV 08/05/24 14:15 Furosemide 20 mg DAILY IV 08/07/24 10:00 08/07/24 10:25 20 MG Examination: GENERAL:Normal, HEENT:Normal, NECK:Normal, LUNGS:Normal, LUNGS:Abnormal (intubated), CVS:Normal, ABDOMEN:Normal, MSK:Normal, SKIN:Normal, NEURO:Normal, NEURO:Abnormal (sedated), :Normal laboratory and microbiology Laboratory Tests 08/07/24 04:28 Test 08/07/24 04:28 Range/Units Serum Glucose 126 H 74-106 mg/dL Microbiology Date/Time Source Procedure Growth Status 08/02/24 16:50 Sputum Gram Stain - Final Complete 08/02/24 16:50 Sputum Respiratory Culture - Final Complete 07/30/24 10:20 Urine - [place] Urine Culture - Final Complete 07/30/24 04:23 Nose MRSA Screen - Final Complete 07/28/24 08:46 Blood Blood Culture - Final NO GROWTH AFTER 5 DAYS OF INCUBATION. Complete Problem List/Assessment/Plan Problem List/Assessment/Plan #1 acute on chronic resp failure: on acv #2 ?pneumonia- gram positive/neg: iv zosyn, zithromax, CT CHEST- copd #3 htn #4 dm: ssi #5 a fib with rvr with secondary hypercoagulable state: dc xarelto #6 morbid obesity #7 acute on chronic systolic/diastolic heart failure: dc lasix iv #8 ckd stage 3 #9 nutrition: tube feedings #10 thrombocytopenia: hold xarelto #11 RA advance care planning- full code- time spent 19 mins Plan discussed with: Daughter My Orders My Orders Orders - KEILA FORD MD Procedure Category Date Status Time Cpap Trial For Am ORDERS 08/06/24 Transmitted 11:41 Abg W/ Co-Ox RT 08/07/24 Logged 06:[address] 08/06/24 Resulted 11:43 Furosemide Injection [facility] 08/07/24 In Process (Lasix Injection) 10:00 Ventilator Orders RT 08/06/24 Transmitted 11:45 Dietary Evaluation Review Comments: 1) Ensure Enlive 240ml TID (ordered per [facility] protocol) 2) MVI 1 tab daily 3) Continue current POC Expected Outcomes/Goals: To meet >75% estimated needs Fu 3-5 days Critical Care Time (mins): 81 (critical care time including cpap trial and dw family and excluding procedures is 81 mins) Date of Service: Aug 07, 2024 Billing Provider: KEILA FORD MD Common Visit Codes: [id number] CARE 30-74 MIN, [id number] CARE-EACH +30MIN KEILA FORD MD Aug 07, 2024 11:10
[2024-08-07] MEDS: DEXMEDETOMIDINE HCL IN D5W 100 ML IV SCH (11:30)
[2024-08-07] MEDS: VANCOMYCIN 1GM/200ML PM 200 ML IV ONE (15:15)
[2024-08-08] VITALS (104 sets, daily range): BP systolic 94–186; BP diastolic 57–116; PULSE 81–168; RESP 11–31; TEMP 97.5–98.8; O2SAT 92–100
[2024-08-08 05:26] LABS: Basophils # (auto) 0 10 ^3/uL (0-0.2); Basophils % (auto) 0.1 % (0.0-2.0); Eosinophils # (auto) 0 10 ^3/uL (0-0.8); Hematocrit 38.9 % (36.0-46.0); Hemoglobin 12.5 g/dL (12.2-16.2); Lymphocytes # (auto) 0.2 10 ^3/uL (0.4-5.4); Mean Corpuscular Hemoglobin 28.6 pg (28.0-32.0); Mean Corpuscular Hgb Conc. 32.2 g/dL (32.0-36.0); Mean Corpuscular Volume 88.7 fL (80.0-100.0); Monocytes # (auto) 1.4 10 ^3/uL (0-1.3); Monocytes % (auto) 8.4 % (0.0-12.0); Neutrophils # (auto) 15.5 10 ^3/uL (1.6-8.6); Neutrophils % (auto) 90.5 % (37.0-80.0); Nucleated Red Blood Cells % 0.1 %; Platelet Count (auto) 104 10^3/uL (140-450); Red Blood Cells 4.39 10^6/uL (4.0-5.20); Red Cell Distribution Width 17.6 % (11.8-14.3); White Blood Cell 17.2 10^3/uL (4.4-10.8)
[2024-08-08 05:41] LABS: Anion Gap 9 (5-15); Potassium 3.7 mmol/L (3.5-5.1); Sodium 139 mmol/L (136-145)
[2024-08-08 05:43] LABS: Calcium 9.6 mg/dL (8.7-10.4)
[2024-08-08 05:48] LABS: Blood Urea Nitrogen 42 mg/dL (9-23); Carbon Dioxide 33 mmol/L (20-31); Chloride 97 mmol/L (98-107); Glucose 156 mg/dL (74-106)
--- NOTE | 2024-08-08 06:19 | DVH ---
EXAM: XR Chest, 1 View CLINICAL INDICATION: Pain TECHNIQUE: Frontal view of the chest. COMPARISON: XR Chest dated 08/07/2024 FINDINGS: LUNGS AND PLEURAL SPACES: Pulmonary venous congestion. No consolidation. No pneumothorax. HEART: Unremarkable. No cardiomegaly. MEDIASTINUM: Unremarkable. Normal mediastinal contour. BONES/JOINTS: Unremarkable. No acute fracture. TUBES, LINES AND DEVICES: The endotracheal tube (ETT) is in satisfactory position. Left internal ju gular central venous catheter tip in the superior vena cava. IMPRESSION: Pulmonary venous congestion.
[2024-08-08 08:22] LABS: Base Excess 7.6 mmol/L (-2.0-3.0)
--- NOTE | 2024-08-08 09:04 | DVH ---
CHEST RADIOGRAPH Indication: advanced ET tube Technique: Single frontal view of the chest was obtained COMPARISON: XY CHEST PORTABLE on DOS: 08/08/24, XY CHEST PORTABLE on DOS: 08/07/24, XY CHEST PORTABLE o n DOS: 08/06/24, XY CHEST PORTABLE on DOS: 08/05/24, XY CHEST PORTABLE on DOS: 08/05/24 FINDINGS: Lines and Tubes: Endotracheal tube, enteric catheter and left central venous catheter in satisfactory position. Lungs: Clear Pleura: No effusion. No pneumothorax. Cardiomediastinal contours: Unremarkable Bones: Unremarkable IMPRESSION: Lines and tubes in satisfactory position. No significant interval change.
--- NOTE | 2024-08-08 11:31 | DVHPN2 ---
Progress Note Date Seen: Aug 08, 2024 Medical Necessity Reason Pt with a Central, PICC or Fol: Yes The following are medically ne: Central Line, Luis Catheter Reason for luis catheter: Strict I&O Subjective Patient reports: No new complaints Review of Systems: HEENT:Normal, CVS:Normal, RESPIRATORY:Normal, GI:Normal, :Normal, MSK:Normal, NEURO:Normal Objective vital signs Vital Sign Date Time Temp Pulse Resp B/P (MAP) Pulse Ox O2 Delivery O2 Flow Rate FiO2 08/08/24 10:11 81 18 117/73 (88) 98 30 08/08/24 08:00 97.7 97.7 08/08/24 06:00 Mechanical Ventilator+ Total Intake and Output 08/07/24 08/07/24 08/08/24 15:00 23:00 07:00 Intake Total 425.180 ml 215.317 ml 165.430 ml Output Total 1150 ml 600 ml Balance 425.180 ml -934.683 ml -434.570 ml medications Current Medications Medications Dose Ordered Sig/Adam Route Start Time Stop Time Status Last Admin Dose Admin Sodium Chloride 10 ml Q8HR IV 07/28/24 14:00 08/08/24 06:54 10 ML Docusate Sodium 100 mg BIDPRN PRN PO 07/28/24 13:30 Acetaminophen 650 mg Q6HP PRN PO 07/28/24 13:30 Nitroglycerin 0.4 mg Q5MINP PRN SL 07/28/24 13:30 Budesonide 0.5 mg BID NEB 07/28/24 22:00 08/08/24 06:11 0.5 MG Azithromycin 250 ml @ 125 mls/hr DAILY IV 07/29/24 10:00 08/08/24 10:26 125 MLS/HR Hydralazine HCl 10 mg Q6HP PRN IV 07/28/24 16:00 07/28/24 18:03 10 MG Albuterol 2.5 mg Q4HPRN PRN NEB 07/29/24 12:45 08/08/24 06:11 2.5 MG Ipratropium [place] 0.5 mg Q4HPRN PRN NEB 07/29/24 12:45 08/05/24 04:10 0.5 MG Ipratropium [place] 0.5 mg Q4HR NEB 07/30/24 02:00 08/08/24 10:27 0.5 MG Levalbuterol HCl 1.25 mg Q4HR NEB 07/30/24 02:00 08/08/24 10:27 1.25 MG Piperacillin Sod/ Tazobactam Sod 100 ml @ 25 mls/hr Q8HR IV 08/01/24 22:00 08/07/24 21:08 25 MLS/HR Norepinephrine Bitartrate 250 ml @ 3.75 mls/hr Q24H IV 08/02/24 13:30 08/03/24 09:50 3.75 MLS/HR Propofol 100 ml @ 2.79 mls/hr Q24H IV 08/02/24 13:30 Midazolam HCl 50 ml @ 1 mls/hr Q24H IV 08/02/24 13:30 08/05/24 02:21 9 MLS/HR Fentanyl Citrate 250 ml @ 2.5 mls/hr Q24H IV 08/02/24 13:30 08/08/24 06:59 5 MLS/HR Enteral Nutritional Formula 1,000 ml 30ML/HR GT 08/03/24 12:30 08/06/24 22:57 1,000 ML Amiodarone HCl 200 mg Q12HR PO 08/03/24 22:00 08/08/24 10:27 200 MG Diagnostic Test (Pha) 1 strip Q6HR 08/03/24 18:00 08/08/24 06:55 1 STRIP Insulin Human Regular FOLLOW SLIDING SCALE Q6HR SC 08/03/24 18:00 08/08/24 00:23 2 UNITS Dextrose 50 ml UD IV 08/03/24 15:00 Methylprednisolone Sodium Succinate 40 mg Q8HR IV 08/05/24 22:00 08/08/24 06:54 40 MG Vancomycin HCl 0 ml @ 0 mls/hr UD IV 08/05/24 14:15 Vancomycin HCl 250 ml @ 200 mls/hr Q12H IV 08/08/24 15:00 UNV Examination: GENERAL:Normal, HEENT:Normal, NECK:Normal, LUNGS:Normal, LUNGS:Abnormal (intubated), CVS:Normal, ABDOMEN:Normal, MSK:Normal, SKIN:Normal, NEURO:Normal, :Normal laboratory and microbiology Laboratory Tests 08/08/24 04:30 Test 08/08/24 04:30 Range/Units Serum Glucose 156 H 74-106 mg/dL Microbiology Date/Time Source Procedure Growth Status 08/02/24 16:50 Sputum Gram Stain - Final Complete 08/02/24 16:50 Sputum Respiratory Culture - Final Complete 07/30/24 10:20 Urine - [place] Urine Culture - Final Complete 07/30/24 04:23 Nose MRSA Screen - Final Complete 07/28/24 08:46 Blood Blood Culture - Final NO GROWTH AFTER 5 DAYS OF INCUBATION. Complete Problem List/Assessment/Plan Problem List/Assessment/Plan #1 acute on chronic resp failure: on acv , cpap trial as tolerated #2 ?pneumonia- gram positive/neg: iv zosyn, doxy, CT CHEST- copd #3 htn #4 dm: ssi #5 a fib with rvr with secondary hypercoagulable state: xarelto #6 morbid obesity #7 acute on chronic systolic/diastolic heart failure: dc lasix iv #8 acute on chronic renal failure ?vasomotor nephropathy: usg #9 nutrition: tube feedings #10 thrombocytopenia: improved, resume xarelto #11 RA advance care planning- full code- time spent 19 mins Plan discussed with: Other (rn) My Orders My Orders Orders - KEILA FORD MD Procedure Category Date Status Time Cpap Trial For Am ORDERS 08/08/24 Transmitted 04:00 Cpap/Sed Vacation Med ORDERS 08/08/24 Transmitted Weaning 04:00 * Wound Consult CONS 08/08/24 Transmitted Creatinine LAB 08/09/24 Verified 04:00 Vancomycin PHA 08/08/24 Logged 1.25gm/250ml 15:00 Vancomycin Per ANDREAS 08/08/24 In Process Pharmacy Protoc 15:00 Vancomycin,Trough LAB 08/11/24 Verified 14:00 Doxycycline PHA 08/08/24 Verified 100mg/100ml 11:30 Cpap Trial For Am ORDERS 08/08/24 Verified 11:25 Complete Blood Count LAB 08/09/24 Verified 06:00 Comprehensive LAB 08/09/24 Verified Metabolic Panel 06:00 Dietary Evaluation Review Comments: 1) Ensure Enlive 240ml TID (ordered per ONS protocol) 2) MVI 1 tab daily 3) Continue current POC Expected Outcomes/Goals: To meet >75% estimated needs Fu 3-5 days Critical Care Time (mins): 81 (critical care time including cpap trial is 81 mins) Date of Service: Aug 08, 2024 Billing Provider: KEILA FORD MD Common Visit Codes: [id number] CARE 30-74 MIN, [id number] CARE-EACH +30MIN KEILA FORD MD Aug 08, 2024 11:31
--- NOTE | 2024-08-08 12:13 | DVH ---
EXAM DESCRIPTION: RENAL ULTRASOUND CLINICAL HISTORY: renal failure COMPARISON: None TECHNIQUE: Multiplanar ultrasound examination of the kidneys and urinary bladder was performed. FINDINGS: The right kidney measures 8.9 cm. No renal calculus. No hydronephrosis.. No solid renal masses. The left kidney measures 8.0 cm. No renal calculus. No hydronephrosis.. No solid renal masses. The echogenicity of the kidneys is within normal limits. The bladder is decompressed with a Bey catheter. IMPRESSION: 1. Mildly atrophic kidneys. No hydronephrosis.
[2024-08-08] MEDS: DOXYCYCLINE 100MG/100ML 100 ML IV SCH (12:32)
[2024-08-08] MEDS: LACTULOSE 20Gm/30ML SOLN PO ONE (12:36)
[2024-08-08] MEDS ORDERED: VANCOMYCIN 1.25GM/250ML 250 ML IV SCH (15:00)
[2024-08-08] MEDS ORDERED: VANCOMYCIN 1GM/200ML PM 200 ML IV ONE (15:00)
[2024-08-08] MEDS: RIVAROXABAN 15 MG TAB PO SCH (19:04)
[2024-08-08] MEDS: LACTULOSE 20Gm/30ML SOLN PO SCH (22:36)
[2024-08-09] VITALS (115 sets, daily range): BP systolic 86–176; BP diastolic 49–110; PULSE 78–148; RESP 10–30; TEMP 97.5–99; O2SAT 92–99
[2024-08-09 05:07] LABS: Basophils # (auto) 0.1 10 ^3/uL (0-0.2); Basophils % (auto) 0.4 % (0.0-2.0); Eosinophils # (auto) 0 10 ^3/uL (0-0.8); Hematocrit 36.5 % (36.0-46.0); Hemoglobin 12.1 g/dL (12.2-16.2); Lymphocytes # (auto) 0.1 10 ^3/uL (0.4-5.4); Lymphocytes % (auto) 0.7 % (10.0-50.0); Mean Corpuscular Hemoglobin 29.2 pg (28.0-32.0); Mean Corpuscular Hgb Conc. 33.2 g/dL (32.0-36.0); Monocytes # (auto) 0.8 10 ^3/uL (0-1.3); Monocytes % (auto) 6.4 % (0.0-12.0); Neutrophils # (auto) 11.4 10 ^3/uL (1.6-8.6); Neutrophils % (auto) 92.5 % (37.0-80.0); Nucleated Red Blood Cells % 0.1 %; Platelet Count (auto) 88 10^3/uL (140-450); Red Blood Cells 4.15 10^6/uL (4.0-5.20); Red Cell Distribution Width 17.5 % (11.8-14.3); White Blood Cell 12.4 10^3/uL (4.4-10.8)
--- NOTE | 2024-08-09 05:17 | DVH ---
EXAM: XR Chest, 1 View CLINICAL INDICATION: Pain TECHNIQUE: Frontal view of the chest. COMPARISON: XR Chest dated 08/08/2024 FINDINGS: LUNGS AND PLEURAL SPACES: Stable interstitial opacity. No pneumothorax. HEART: Unremarkable. No cardiomegaly. MEDIASTINUM: Unremarkable. Normal mediastinal contour. BONES/JOINTS: Unremarkable. No acute fracture. TUBES, LINES AND DEVICES: The endotracheal tube (ETT) is in satisfactory position. Enteric tube tip cannot be seen but is below the diaphragm. Left internal jugular central venous catheter tip in the superior vena cava. IMPRESSION: No significant change from the prior exam.
[2024-08-09 05:26] LABS: Albumin 4.1 g/dL (3.2-4.8); Alkaline Phosphatase 66 U/L (46-116); Anion Gap 8 (5-15); BUN/Creatinine Ratio 32.4 (10.0-20.0); Bilirubin, Total 0.6 mg/dL (0.2-1.0); Calcium 9.6 mg/dL (8.7-10.4); Sodium 139 mmol/L (136-145)
[2024-08-09 05:28] LABS: Alanine Aminotransferase 133 U/L (7-40); Aspartate Aminotransferase 48 U/L (<34); Blood Urea Nitrogen 36 mg/dL (9-23); Carbon Dioxide 33 mmol/L (20-31); Chloride 98 mmol/L (98-107); Glucose 160 mg/dL (74-106); Potassium 3.4 mmol/L (3.5-5.1)
[2024-08-09] MEDS: POTASSIUM CHL 20MEQ/100ML 100 ML IV ONE (06:34)
[2024-08-09 07:51] LABS: Base Excess 5.6 mmol/L (-2.0-3.0)
[2024-08-09] MEDS: LORazepam 2MG/ML-1ML VIAL IV PRN (08:20)
[2024-08-09 09:14] LABS: Base Excess 5.8 mmol/L (-2.0-3.0)
[2024-08-09] MEDS: FLUoxetine HCL 20 MG CAP PO ONE (17:19)
[2024-08-09] MEDS: PROPOFOL 100 ML IV ONE (17:20)
--- NOTE | 2024-08-09 17:34 | DVHPNRES ---
Progress Note Date Seen: Aug 09, 2024 Resident Creating Document: ANNALISA BURGESS Medical Necessity Reason Pt with a Central, PICC or Fol: Yes The following are medically ne: Central Line, Luis Catheter Reason for luis catheter: Strict I&O Medical Necessity Reason Patient was seen and examined at the bedside today with the nurse present. She was on CPAP for about 3 hours today. Goal is to try to extubate her today. Patient was on Precedex 0.3mcg/kg/hr and fentanyl 100. Whilst waking up, patient was anxious with her HR going over to the 180s. According to the nurse, this is the 3 trial to get patient of the ventilator. But each time, patient too agitated and flopping arms around. HR: 170 Afib. Cpap trial ended.She started desaturating to the 80s Patient placed back on AC mode, sedation restarted. Case was discussed with Dr. Connelly and he recommended having the patient on seroquel 25 mg bid, prozac 20 mg daily and xanax 0.5mg prn. Also tonight d/c Precedex and put propofol. Subjective Review of Systems Unable to assess. Patient was waking up and very agitated Objective vital signs Vital Sign Date Time Temp Pulse Resp B/P (MAP) Pulse Ox O2 Delivery O2 Flow Rate FiO2 08/09/24 16:00 106 08/09/24 16:00 18 98 Mechanical Ventilator+ 30 30 08/09/24 16:00 126/93 (104) 08/09/24 12:00 99.0 99.0 Total Intake and Output 08/08/24 08/08/24 08/09/24 15:00 23:00 07:00 Intake Total 40.698 ml 292.749 ml 438.131 ml Output Total 475 ml 230 ml Balance 40.698 ml -182.251 ml 208.131 ml medications Current Medications Medications Dose Ordered Sig/Adam Route Start Time Stop Time Status Last Admin Dose Admin Sodium Chloride 10 ml Q8HR IV 07/28/24 14:00 08/09/24 14:33 10 ML Docusate Sodium 100 mg BIDPRN PRN PO 07/28/24 13:30 Acetaminophen 650 mg Q6HP PRN PO 07/28/24 13:30 Nitroglycerin 0.4 mg Q5MINP PRN SL 07/28/24 13:30 Budesonide 0.5 mg BID NEB 07/28/24 22:00 08/09/24 10:16 0.5 MG Hydralazine HCl 10 mg Q6HP PRN IV 07/28/24 16:00 08/08/24 15:36 10 MG Albuterol 2.5 mg Q4HPRN PRN NEB 07/29/24 12:45 08/08/24 06:11 2.5 MG Ipratropium [place] 0.5 mg Q4HPRN PRN NEB 07/29/24 12:45 08/05/24 04:10 0.5 MG Ipratropium [place] 0.5 mg Q4HR NEB 07/30/24 02:00 08/09/24 14:45 0.5 MG Levalbuterol HCl 1.25 mg Q4HR NEB 07/30/24 02:00 08/09/24 14:45 1.25 MG Piperacillin Sod/ Tazobactam Sod 100 ml @ 25 mls/hr Q8HR IV 08/01/24 22:00 08/09/24 14:33 25 MLS/HR Norepinephrine Bitartrate 250 ml @ 3.75 mls/hr Q24H IV 08/02/24 13:30 08/03/24 09:50 3.75 MLS/HR Midazolam HCl 50 ml @ 1 mls/hr Q24H IV 08/02/24 13:30 08/05/24 02:21 9 MLS/HR Fentanyl Citrate 250 ml @ 2.5 mls/hr Q24H IV 08/02/24 13:30 08/08/24 06:59 5 MLS/HR Enteral Nutritional Formula 1,000 ml 30ML/HR GT 08/03/24 12:30 08/08/24 19:04 1,000 ML Amiodarone HCl 200 mg Q12HR PO 08/03/24 22:00 08/09/24 10:03 200 MG Diagnostic Test (Pha) 1 strip Q6HR 08/03/24 18:00 08/09/24 12:00 1 STRIP Insulin Human Regular FOLLOW SLIDING SCALE Q6HR SC 08/03/24 18:00 08/09/24 12:57 4 UNITS Dextrose 50 ml UD IV 08/03/24 15:00 Methylprednisolone Sodium Succinate 40 mg Q8HR IV 08/05/24 22:00 08/09/24 14:33 40 MG Doxycycline Hyclate 100 ml @ 50 mls/hr Q12HR IV 08/08/24 11:30 08/09/24 10:03 50 MLS/HR Rivaroxaban 15 mg QPM PO 08/08/24 18:00 08/08/24 19:04 15 MG Lactulose 30 ml BID PO 08/08/24 22:00 08/08/24 22:36 30 ML Lorazepam 1 mg Q4HPRN PRN IV 08/09/24 07:15 08/09/24 08:20 1 MG Quetiapine Fumarate 25 mg BID PO 08/09/24 22:00 Fluoxetine HCl 20 mg DAILY PO 08/10/24 10:00 Alprazolam 0.5 mg [id number] PRN PO 08/09/24 16:30 Examination General Appearance: Drowsy, agitated, intubated HEENT: Atraumatic, PERRLA, EOMI, Mucous membrane moist/pink Respiratory: mild coarseness, Cardiovascular: tachycardia, no chest wall tenderness Abdominal: NO distention, no tenderness, bowel sounds present, no scars noted Extremities: No clubbing, No cyanosis, No edema, Normal pulses, No tenderness/swelling Skin: partial-thickness skin tear right anterior hip, right lower abdominal fold area that is dusky red, Neuro: in bed, Psych/Mental Status: Unable to make assess laboratory and microbiology Laboratory Tests 08/09/24 04:41 Test 08/09/24 04:41 Range/Units Serum Glucose 160 H 74-106 mg/dL Microbiology Date/Time Source Procedure Growth Status 08/02/24 16:50 Sputum Gram Stain - Final Complete 08/02/24 16:50 Sputum Respiratory Culture - Final Complete 07/30/24 10:20 Urine - [place] Urine Culture - Final Complete 07/30/24 04:23 Nose MRSA Screen - Final Complete 07/28/24 08:46 Blood Blood Culture - Final NO GROWTH AFTER 5 DAYS OF INCUBATION. 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 - Furosemide d/c'ed - Amiodarone, xarelto Respiratory Acute on chronic respiratory failure COPD exacerbation Metabolic alkalosis on abg, resolved home oxygen Asthma - Continue Doxycycline - albuterol and Ipratropim prn - Back on assist control ventilation, cpap trial as tolerated Genitourinary ckd stage 3 - Monitor creatinine - USG Metabolic/ Endocrine Hyperlipidemia Diabetes mellitus Mild hypokalemia Obesity grade 2, BMI: 36.3 kg/m2 - Atorvastatin - Sliding scale Infectious disease Possible underlying pneumonia- gram positive/neg - Continue Zosyn and doxycycline IV access: Left neck: Central line; Peripheral line: antibiotics Drips: Precedex, Fentanyl intubated: 08/02/2024 Antibiotics: Doxycycline and Zosyn plan: Add 08/09/2024 Seroquel 25 mg bid Prozac 20 mg daily Xanax 0.5mg daily prn Propofol at night, D/c Precedex ( tonight 08/09/2024) Diet: tube feedings DVT prophylaxis: patient on Xarelto Advance plan discussed with daughter and Nurse Critical care time 35 minutes Case and plan discussed + Dr. Connelly Plan discussed with: Daughter, Other (nurse) My Orders My Orders Orders - ANNALISA BURGESS Procedure Category Date Status Time Ventilator Orders RT 08/09/24 Transmitted 06:00 Quetiapine Fumarate PHA 08/09/24 In Process Tablet (Seroquel Tab 22:00 Fluoxetine Capsule PHA 08/10/24 In Process (Prozac Capsule) 10:00 Alprazolam Tablet PHA 08/09/24 In Process (Xanax Tablet) 16:30 Dietary Evaluation Review Comments: 1) Ensure Enlive 240ml TID (ordered per ONS protocol) 2) MVI 1 tab daily 3) Continue current POC Expected Outcomes/Goals: To meet >75% estimated needs Fu 3-5 days Date of Service: Aug 09, 2024 Billing Provider: MAURI CONNELLY MD Common Visit Codes: NOT BILLABLE ANNALISA BURGESS Aug 09, 2024 17:34 MAURI CONNELLY MD Aug 13, 2024 13:55
[2024-08-09] MEDS: PROPOFOL 100 ML IV SCH (18:57)
[2024-08-09] MEDS: QUEtiapine FUMARATE 25 MG TAB PO SCH (22:25)
[2024-08-10] VITALS (105 sets, daily range): BP systolic 80–181; BP diastolic 45–108; PULSE 79–137; RESP 15–23; TEMP 98.2–98.9; O2SAT 83–100
[2024-08-10 07:09] LABS: Basophils # (auto) 0 10 ^3/uL (0-0.2); Basophils % (auto) 0.1 % (0.0-2.0); Eosinophils # (auto) 0 10 ^3/uL (0-0.8); Hematocrit 37.8 % (36.0-46.0); Hemoglobin 12.2 g/dL (12.2-16.2); Lymphocytes # (auto) 0.2 10 ^3/uL (0.4-5.4); Lymphocytes % (auto) 1.2 % (10.0-50.0); Mean Corpuscular Hemoglobin 28.6 pg (28.0-32.0); Mean Corpuscular Hgb Conc. 32.2 g/dL (32.0-36.0); Monocytes % (auto) 8.1 % (0.0-12.0); Neutrophils # (auto) 11.4 10 ^3/uL (1.6-8.6); Neutrophils % (auto) 90.6 % (37.0-80.0); Nucleated Red Blood Cells % 0.1 %; Platelet Count (auto) 84 10^3/uL (140-450); Red Blood Cells 4.24 10^6/uL (4.0-5.20); Red Cell Distribution Width 17.4 % (11.8-14.3); White Blood Cell 12.6 10^3/uL (4.4-10.8)
[2024-08-10 07:19] LABS: Base Excess 7.7 mmol/L (-2.0-3.0)
[2024-08-10 07:24] LABS: Albumin 4.1 g/dL (3.2-4.8); Alkaline Phosphatase 68 U/L (46-116); Anion Gap 10 (5-15); BUN/Creatinine Ratio 30.7 (10.0-20.0); Bilirubin, Total 0.5 mg/dL (0.2-1.0); Calcium 10.3 mg/dL (8.7-10.4); Carbon Dioxide 32 mmol/L (20-31); Chloride 98 mmol/L (98-107); Glucose 130 mg/dL (74-106); Potassium 3.9 mmol/L (3.5-5.1); Sodium 140 mmol/L (136-145); Total Protein 6.1 g/dL (5.7-8.2)
[2024-08-10 07:25] LABS: Alanine Aminotransferase 129 U/L (7-40); Aspartate Aminotransferase 62 U/L (<34); Blood Urea Nitrogen 35 mg/dL (9-23)
[2024-08-10] MEDS: FLUoxetine HCL 20 MG CAP PO SCH (09:45)
--- NOTE | 2024-08-10 10:48 | DVHPN2 ---
Assessment/Plan Assessment/Plan ICU note Covering on TF. CPAP 3 hours yesterday, agitated. started on prozac seroquel. adding klonazepam. afib with tachy likely related to agitation Physical exam sedated, intubated on mechanical vent PERRLA coarse mechanical breath sounds s1 s2 rrr abdomen soft nontender no le edema Labs ekg imaging reviewed Assessment and plan acute on chronic systolic heart failure afib with rvr acute on chronic hypoxic RF req mechanical vent COPD group E on home O2 with exacerbation STEPHEN on CKD possible VMN HLD NIDDM obesity pneumonia gp gn c/w mechanical vent daily SAT SBT add oral meds for titration ok to give maintenance meds if MAP >65 c/w sedation maintain RAAS -3 c/w amio po c/w Zosyn c/w ac trend cr diet tf dvt ppx on ac gi ppx protonix condition critical prognosis poor full code critical care time 35 minutes Plan discussed with: Other My Orders Orders - TAWANA MONTOYA MD Procedure Category Date Status Time Clonazepam Tablet PHA 08/10/24 In Process (Klonopin Tablet) 22:00 Cpap Trial For Am ORDERS 08/10/24 Transmitted 10:38 Date of Service: Aug 10, 2024 Billing Provider: TAWANA MONTOYA MD Common Visit Codes: [id number] CARE 30-74 MIN TAWANA MONTOYA MD Aug 10, 2024 10:48
--- NOTE | 2024-08-10 15:00 | DVHPN2 ---
Progress Note - Dictate Date Seen: Aug 10, 2024 Medical Necessity Reason Pt with a Central, PICC or Fol: Yes The following are medically ne: Central Line, Luis Catheter Reason for luis catheter: Strict I&O vital signs Vital Sign Date Time Temp Pulse Resp B/P (MAP) Pulse Ox O2 Delivery O2 Flow Rate FiO2 08/10/24 14:03 91 18 96/55 (69) 98 30 08/10/24 12:00 Mechanical Ventilator+ 08/10/24 12:00 98.7 98.7 Total Intake and Output 08/09/24 08/09/24 08/10/24 15:00 23:00 07:00 Intake Total 277.838 ml 233.135 ml 389.13 ml Output Total 300 ml 450 ml Balance 277.838 ml -66.865 ml -60.87 ml medications Current Medications Medications Dose Ordered Sig/Adam Route Start Time Stop Time Status Last Admin Dose Admin Sodium Chloride 10 ml Q8HR IV 07/28/24 14:00 08/10/24 06:00 10 ML Docusate Sodium 100 mg BIDPRN PRN PO 07/28/24 13:30 Acetaminophen 650 mg Q6HP PRN PO 07/28/24 13:30 Nitroglycerin 0.4 mg Q5MINP PRN SL 07/28/24 13:30 Budesonide 0.5 mg BID NEB 07/28/24 22:00 08/10/24 05:56 0.5 MG Hydralazine HCl 10 mg Q6HP PRN IV 07/28/24 16:00 08/10/24 10:40 10 MG Albuterol 2.5 mg Q4HPRN PRN NEB 07/29/24 12:45 08/08/24 06:11 2.5 MG Ipratropium [place] 0.5 mg Q4HPRN PRN NEB 07/29/24 12:45 08/05/24 04:10 0.5 MG Ipratropium [place] 0.5 mg Q4HR NEB 07/30/24 02:00 08/10/24 14:03 0.5 MG Levalbuterol HCl 1.25 mg Q4HR NEB 07/30/24 02:00 08/10/24 14:03 1.25 MG Piperacillin Sod/ Tazobactam Sod 100 ml @ 25 mls/hr Q8HR IV 08/01/24 22:00 08/10/24 06:00 25 MLS/HR Norepinephrine Bitartrate 250 ml @ 3.75 mls/hr Q24H IV 08/02/24 13:30 08/03/24 09:50 3.75 MLS/HR Midazolam HCl 50 ml @ 1 mls/hr Q24H IV 08/02/24 13:30 08/05/24 02:21 9 MLS/HR Fentanyl Citrate 250 ml @ 2.5 mls/hr Q24H IV 08/02/24 13:30 08/10/24 05:03 12.5 MLS/HR Enteral Nutritional Formula 1,000 ml 30ML/HR GT 08/03/24 12:30 08/08/24 19:04 1,000 ML Amiodarone HCl 200 mg Q12HR PO 08/03/24 22:00 08/09/24 22:25 200 MG Diagnostic Test (Pha) 1 strip Q6HR 08/03/24 18:00 08/10/24 11:39 1 STRIP Insulin Human Regular FOLLOW SLIDING SCALE Q6HR SC 08/03/24 18:00 08/10/24 11:34 4 UNITS Dextrose 50 ml UD IV 08/03/24 15:00 Methylprednisolone Sodium Succinate 40 mg Q8HR IV 08/05/24 22:00 08/10/24 08:17 40 MG Doxycycline Hyclate 100 ml @ 50 mls/hr Q12HR IV 08/08/24 11:30 08/10/24 09:45 50 MLS/HR Rivaroxaban 15 mg QPM PO 08/08/24 18:00 08/08/24 19:04 15 MG Lactulose 30 ml BID PO 08/08/24 22:00 08/08/24 22:36 30 ML Quetiapine Fumarate 25 mg BID PO 08/09/24 22:00 08/10/24 09:45 25 MG Fluoxetine HCl 20 mg DAILY PO 08/10/24 10:00 08/10/24 09:45 20 MG Alprazolam 0.5 mg [id number] PRN PO 08/09/24 16:30 Propofol 100 ml @ 3.09 mls/hr Q24H IV 08/09/24 17:30 08/10/24 08:50 15.45 MLS/HR Clonazepam 1 mg Q12HR PO 08/10/24 22:00 laboratory and microbiology Laboratory Tests 08/10/24 06:15 Test 08/10/24 06:15 Range/Units Serum Glucose 130 H 74-106 mg/dL Assessment/Plan Impression Acute on chronic respiratory failure Acute COPD exacerbation Pneumonia Atelectasis Patient seen and examined in EDER Events On mechanical ventilation S/p intubation PEEP 5, FiO2 30% Failed weaning trial yesterday Labs and imaging reviewed ABG reviewed Management Vent support Titrate to maintain sats 90% or above Sedation holiday daily If patient follows commands, proceed to weaning trial Pressure support 08/24, extubate when ready Continue antibiotics F/u cultures Bronchodilators Monitor renal function Monitor electrolytes Supplement as needed Pressors as needed for hemodynamic support To maintain a mean arterial pressure of 65 mmHg DVT prophylaxis Critical care time 35 minutes Dietary Evaluation Review Comments: 1) Ensure Enlive 240ml TID (ordered per ONS protocol) 2) MVI 1 tab daily 3) Continue current POC Expected Outcomes/Goals: To meet >75% estimated needs Fu 3-5 days Plan discussed with: Other (Rn) MAURI LASSITER MD Aug 10, 2024 15:00
[2024-08-10] MEDS: clonazePAM 0.5 MG TAB PO SCH (22:31)
[2024-08-11] VITALS (95 sets, daily range): BP systolic 84–141; BP diastolic 36–90; PULSE 52–132; RESP 13–22; TEMP 97.3–98.6; O2SAT 92–100
[2024-08-11 07:49] LABS: Base Excess 6.4 mmol/L (-2.0-3.0)
[2024-08-11 09:44] LABS: Basophils # (auto) 0 10 ^3/uL (0-0.2); Basophils % (auto) 0.1 % (0.0-2.0); Eosinophils # (auto) 0 10 ^3/uL (0-0.8); Hematocrit 37.5 % (36.0-46.0); Hemoglobin 12.2 g/dL (12.2-16.2); Lymphocytes # (auto) 0.1 10 ^3/uL (0.4-5.4); Lymphocytes % (auto) 0.6 % (10.0-50.0); Mean Corpuscular Hemoglobin 28.7 pg (28.0-32.0); Mean Corpuscular Hgb Conc. 32.5 g/dL (32.0-36.0); Mean Corpuscular Volume 88.4 fL (80.0-100.0); Monocytes # (auto) 0.7 10 ^3/uL (0-1.3); Monocytes % (auto) 6.2 % (0.0-12.0); Neutrophils # (auto) 10.5 10 ^3/uL (1.6-8.6); Neutrophils % (auto) 93.1 % (37.0-80.0); Platelet Count (auto) 74 10^3/uL (140-450); Red Blood Cells 4.24 10^6/uL (4.0-5.20); Red Cell Distribution Width 17.3 % (11.8-14.3); White Blood Cell 11.3 10^3/uL (4.4-10.8)
[2024-08-11 10:01] LABS: Calcium 10.4 mg/dL (8.7-10.4); Chloride 98 mmol/L (98-107); Potassium 3.8 mmol/L (3.5-5.1); Sodium 140 mmol/L (136-145)
[2024-08-11 10:02] LABS: Anion Gap 9 (5-15)
[2024-08-11 10:03] LABS: Carbon Dioxide 33 mmol/L (20-31)
[2024-08-11 10:07] LABS: BUN/Creatinine Ratio 35.9 (10.0-20.0)
[2024-08-11 10:08] LABS: Blood Urea Nitrogen 37 mg/dL (9-23); Glucose 141 mg/dL (74-106)
--- NOTE | 2024-08-11 15:56 | DVHPN2 ---
Assessment/Plan Assessment/Plan ICU note Covering on and off following commands. continue daily SAT SBT Physical exam sedated, intubated on mechanical vent PERRLA coarse mechanical breath sounds s1 s2 rrr abdomen soft nontender no le edema Labs ekg imaging reviewed Assessment and plan acute on chronic systolic heart failure afib with rvr acute on chronic hypoxic RF req mechanical vent COPD group E on home O2 with exacerbation STEPHEN on CKD possible VMN HLD NIDDM obesity pneumonia gp gn c/w mechanical vent daily SAT SBT add oral meds for titration ok to give maintenance meds if MAP >65 c/w sedation maintain RAAS -3 c/w amio po c/w Zosyn c/w ac trend cr diet tf dvt ppx on ac gi ppx protonix condition critical prognosis poor full code critical care time 35 minutes Plan discussed with: Other My Orders Orders - TAWANA MONTOYA MD Procedure Category Date Status Time Urine Bacterial SUZAN 08/11/24 In Process Culture 07:19 Date of Service: Aug 11, 2024 Billing Provider: TAWANA MONTOYA MD Common Visit Codes: [id number] CARE 30-74 MIN TAWANA MONTOYA MD Aug 11, 2024 15:56
--- NOTE | 2024-08-11 16:12 | DVHPN2 ---
Progress Note - Dictate Date Seen: Aug 11, 2024 Medical Necessity Reason Pt with a Central, PICC or Fol: Yes The following are medically ne: Central Line, Luis Catheter Reason for luis catheter: Strict I&O vital signs Vital Sign Date Time Temp Pulse Resp B/P (MAP) Pulse Ox O2 Delivery O2 Flow Rate FiO2 08/11/24 16:05 85 18 94/58 (70) 100 30 08/11/24 12:10 Mechanical Ventilator 08/11/24 12:00 97.3 97.3 Total Intake and Output 08/10/24 08/10/24 08/11/24 14:59 22:59 06:59 Intake Total 401.665 ml 415.215 ml 556.080 ml Output Total 225 ml 750 ml Balance 401.665 ml 190.215 ml -193.920 ml medications Current Medications Medications Dose Ordered Sig/Adam Route Start Time Stop Time Status Last Admin Dose Admin Sodium Chloride 10 ml Q8HR IV 07/28/24 14:00 08/11/24 06:00 10 ML Docusate Sodium 100 mg BIDPRN PRN PO 07/28/24 13:30 Acetaminophen 650 mg Q6HP PRN PO 07/28/24 13:30 Nitroglycerin 0.4 mg Q5MINP PRN SL 07/28/24 13:30 Budesonide 0.5 mg BID NEB 07/28/24 22:00 08/11/24 06:00 0.5 MG Hydralazine HCl 10 mg Q6HP PRN IV 07/28/24 16:00 08/10/24 10:40 10 MG Albuterol 2.5 mg Q4HPRN PRN NEB 07/29/24 12:45 08/08/24 06:11 2.5 MG Ipratropium [place] 0.5 mg Q4HPRN PRN NEB 07/29/24 12:45 08/05/24 04:10 0.5 MG Ipratropium [place] 0.5 mg Q4HR NEB 07/30/24 02:00 08/11/24 14:09 0.5 MG Levalbuterol HCl 1.25 mg Q4HR NEB 07/30/24 02:00 08/11/24 14:09 1.25 MG Piperacillin Sod/ Tazobactam Sod 100 ml @ 25 mls/hr Q8HR IV 08/01/24 22:00 08/11/24 06:00 25 MLS/HR Norepinephrine Bitartrate 250 ml @ 3.75 mls/hr Q24H IV 08/02/24 13:30 08/03/24 09:50 3.75 MLS/HR Midazolam HCl 50 ml @ 1 mls/hr Q24H IV 08/02/24 13:30 08/05/24 02:21 9 MLS/HR Fentanyl Citrate 250 ml @ 2.5 mls/hr Q24H IV 08/02/24 13:30 08/10/24 05:03 12.5 MLS/HR Enteral Nutritional Formula 1,000 ml 30ML/HR GT 08/03/24 12:30 08/08/24 19:04 1,000 ML Amiodarone HCl 200 mg Q12HR PO 08/03/24 22:00 08/11/24 11:42 200 MG Diagnostic Test (Pha) 1 strip Q6HR 08/03/24 18:00 08/11/24 12:18 1 STRIP Insulin Human Regular FOLLOW SLIDING SCALE Q6HR SC 08/03/24 18:00 08/11/24 06:00 4 UNITS Dextrose 50 ml UD IV 08/03/24 15:00 Methylprednisolone Sodium Succinate 40 mg Q8HR IV 08/05/24 22:00 08/11/24 06:00 40 MG Doxycycline Hyclate 100 ml @ 50 mls/hr Q12HR IV 08/08/24 11:30 08/11/24 11:42 50 MLS/HR Rivaroxaban 15 mg QPM PO 08/08/24 18:00 08/10/24 17:44 15 MG Lactulose 30 ml BID PO 08/08/24 22:00 08/11/24 10:28 30 ML Quetiapine Fumarate 25 mg BID PO 08/09/24 22:00 08/11/24 10:28 25 MG Fluoxetine HCl 20 mg DAILY PO 08/10/24 10:00 08/11/24 10:28 20 MG Alprazolam 0.5 mg [id number] PRN PO 08/09/24 16:30 Propofol 100 ml @ 3.09 mls/hr Q24H IV 08/09/24 17:30 08/10/24 08:50 15.45 MLS/HR Clonazepam 1 mg Q12HR PO 08/10/24 22:00 08/11/24 10:28 1 MG laboratory and microbiology Laboratory Tests 08/11/24 07:45 Test 08/11/24 07:45 Range/Units Serum Glucose 141 H 74-106 mg/dL Assessment/Plan Impression Acute on chronic respiratory failure Acute COPD exacerbation Pneumonia Atelectasis Patient seen and examined in EDER Events On mechanical ventilation S/p intubation PEEP 5, FiO2 30% On Precedex drip Labs and imaging reviewed ABG reviewed Management Vent support Titrate to maintain sats 90% or above Sedation holiday daily If patient follows commands, proceed to weaning trial Pressure support 08/24, extubate when ready Continue antibiotics F/u cultures Bronchodilators Monitor renal function Monitor electrolytes Supplement as needed Pressors as needed for hemodynamic support To maintain a mean arterial pressure of 65 mmHg DVT prophylaxis Critical care time 35 minutes Dietary Evaluation Review Comments: 1) Ensure Enlive 240ml TID (ordered per ONS protocol) 2) MVI 1 tab daily 3) Continue current POC Expected Outcomes/Goals: To meet >75% estimated needs Fu 3-5 days Plan discussed with: Other (Rn) MAURI LASSITER MD Aug 11, 2024 16:12
[2024-08-12] VITALS (99 sets, daily range): BP systolic 71–201; BP diastolic 47–146; PULSE 83–176; RESP 14–38; TEMP 97.5–99.7; O2SAT 92–100
[2024-08-12 05:18] LABS: Basophils # (auto) 0 10 ^3/uL (0-0.2); Basophils % (auto) 0.2 % (0.0-2.0); Eosinophils # (auto) 0 10 ^3/uL (0-0.8); Hematocrit 36.3 % (36.0-46.0); Lymphocytes # (auto) 0.1 10 ^3/uL (0.4-5.4); Lymphocytes % (auto) 0.6 % (10.0-50.0); Monocytes # (auto) 0.6 10 ^3/uL (0-1.3); Monocytes % (auto) 4.8 % (0.0-12.0); Neutrophils # (auto) 12.4 10 ^3/uL (1.6-8.6); Neutrophils % (auto) 94.4 % (37.0-80.0); Nucleated Red Blood Cells % 0.1 %; Platelet Count (auto) 76 10^3/uL (140-450); Red Blood Cells 4.13 10^6/uL (4.0-5.20); Red Cell Distribution Width 17.4 % (11.8-14.3); White Blood Cell 13.2 10^3/uL (4.4-10.8)
[2024-08-12 05:28] LABS: Anion Gap 10 (5-15); Calcium 9.5 mg/dL (8.7-10.4); Carbon Dioxide 30 mmol/L (20-31); Potassium 3.7 mmol/L (3.5-5.1); Sodium 138 mmol/L (136-145)
[2024-08-12 05:29] LABS: Chloride 98 mmol/L (98-107)
[2024-08-12 05:34] LABS: BUN/Creatinine Ratio 36.3 (10.0-20.0); Magnesium 2.4 mg/dL (1.6-2.6)
[2024-08-12 05:36] LABS: Phosphorus 4.4 mg/dL (2.4-5.1)
[2024-08-12 05:46] LABS: Blood Urea Nitrogen 37 mg/dL (9-23); Glucose 137 mg/dL (74-106)
[2024-08-12 06:51] LABS: Base Excess 4.4 mmol/L (-2.0-3.0)
[2024-08-12] MEDS: ALPRAZolam 0.5 MG TAB PO PRN (07:26)
[2024-08-12] MEDS ORDERED: METO25TA93 PO (07:58)
--- NOTE | 2024-08-12 11:17 | DVHPN2 ---
Progress Note Date Seen: Aug 12, 2024 Medical Necessity Reason Pt with a Central, PICC or Fol: Yes The following are medically ne: Central Line, Luis Catheter Reason for luis catheter: Strict I&O Subjective Patient reports: No new complaints Review of Systems: HEENT:Normal, CVS:Normal, RESPIRATORY:Normal, GI:Normal, :Normal, MSK:Normal, NEURO:Normal Objective vital signs Vital Sign Date Time Temp Pulse Resp B/P (MAP) Pulse Ox O2 Delivery O2 Flow Rate FiO2 08/12/24 09:15 118 22 148/75 (99) 98 08/12/24 09:05 30 08/12/24 08:00 99.6 99.6 08/12/24 07:30 Mechanical Ventilator+ Total Intake and Output 08/11/24 08/11/24 08/12/24 15:00 23:00 07:00 Intake Total 284.901 ml 510.544 ml 232.885 ml Output Total 325 ml 500 ml Balance 284.901 ml 185.544 ml -267.115 ml medications Current Medications Medications Dose Ordered Sig/Adam Route Start Time Stop Time Status Last Admin Dose Admin Sodium Chloride 10 ml Q8HR IV 07/28/24 14:00 08/12/24 04:41 10 ML Docusate Sodium 100 mg BIDPRN PRN PO 07/28/24 13:30 Acetaminophen 650 mg Q6HP PRN PO 07/28/24 13:30 Nitroglycerin 0.4 mg Q5MINP PRN SL 07/28/24 13:30 Budesonide 0.5 mg BID NEB 07/28/24 22:00 08/12/24 05:49 0.5 MG Hydralazine HCl 10 mg Q6HP PRN IV 07/28/24 16:00 08/12/24 07:36 10 MG Ipratropium [place] 0.5 mg Q4HPRN PRN NEB 07/29/24 12:45 08/05/24 04:10 0.5 MG Ipratropium [place] 0.5 mg Q4HR NEB 07/30/24 02:00 08/12/24 09:05 0.5 MG Piperacillin Sod/ Tazobactam Sod 100 ml @ 25 mls/hr Q8HR IV 08/01/24 22:00 08/12/24 04:41 25 MLS/HR Norepinephrine Bitartrate 250 ml @ 3.75 mls/hr Q24H IV 08/02/24 13:30 08/03/24 09:50 3.75 MLS/HR Midazolam HCl 50 ml @ 1 mls/hr Q24H IV 08/02/24 13:30 08/05/24 02:21 9 MLS/HR Enteral Nutritional Formula 1,000 ml 30ML/HR GT 08/03/24 12:30 08/08/24 19:04 1,000 ML Amiodarone HCl 200 mg Q12HR PO 08/03/24 22:00 08/12/24 07:48 200 MG Diagnostic Test (Pha) 1 strip Q6HR 08/03/24 18:00 08/12/24 04:41 1 STRIP Insulin Human Regular FOLLOW SLIDING SCALE Q6HR SC 08/03/24 18:00 08/11/24 06:00 4 UNITS Dextrose 50 ml UD IV 08/03/24 15:00 Methylprednisolone Sodium Succinate 40 mg Q8HR IV 08/05/24 22:00 08/12/24 04:41 40 MG Doxycycline Hyclate 100 ml @ 50 mls/hr Q12HR IV 08/08/24 11:30 08/11/24 20:20 50 MLS/HR Rivaroxaban 15 mg QPM PO 08/08/24 18:00 08/11/24 18:07 15 MG Lactulose 30 ml BID PO 08/08/24 22:00 08/11/24 20:21 30 ML Quetiapine Fumarate 25 mg BID PO 08/09/24 22:00 08/12/24 07:48 25 MG Fluoxetine HCl 20 mg DAILY PO 08/10/24 10:00 08/12/24 07:48 20 MG Alprazolam 0.5 mg [id number] PRN PO 08/09/24 16:30 08/12/24 07:26 0.5 MG Propofol 100 ml @ 3.09 mls/hr Q24H IV 08/09/24 17:30 08/12/24 08:00 3.09 MLS/HR Clonazepam 1 mg Q12HR PO 08/10/24 22:00 08/12/24 07:48 1 MG Fentanyl Citrate 250 ml @ 2.5 mls/hr Q24H IV 08/12/24 09:30 Examination: GENERAL:Normal, HEENT:Normal, NECK:Normal, LUNGS:Normal, LUNGS:Abnormal (intubated), CVS:Normal, ABDOMEN:Normal, MSK:Normal, SKIN:Normal, NEURO:Normal, :Normal laboratory and microbiology Laboratory Tests 08/12/24 04:40 Test 08/12/24 04:40 Range/Units Serum Glucose 137 H 74-106 mg/dL Microbiology Date/Time Source Procedure Growth Status 08/11/24 06:45 Urine - Luis [place] Urine Culture - Preliminary Resulted 08/02/24 16:50 Sputum Gram Stain - Final Complete 08/02/24 16:50 Sputum Respiratory Culture - Final Complete 07/30/24 04:23 Nose MRSA Screen - Final Complete 07/28/24 08:46 Blood Blood Culture - Final NO GROWTH AFTER 5 DAYS OF INCUBATION. Complete Problem List/Assessment/Plan Problem List/Assessment/Plan #1 acute on chronic resp failure: on acv , cpap trial- failed, consider trach- will dw daughter #2 ?pneumonia- gram positive/neg: iv zosyn, doxy, CT CHEST- copd #3 htn #4 dm: ssi #5 a fib with rvr with secondary hypercoagulable state: xarelto #6 morbid obesity #7 acute on chronic systolic/diastolic heart failure: dc lasix iv #8 acute on chronic renal failure ?vasomotor nephropathy: usg #9 nutrition: tube feedings #10 thrombocytopenia: improved, resume xarelto #11 RA advance care planning- full code- time spent 19 mins Plan discussed with: Other (rn) My Orders My Orders Orders - KEILA FORD MD Procedure Category Date Status Time Fentanyl Drip PHA 08/12/24 In Process 2500mcg/250mlns 09:30 Dietary Evaluation Review Comments: 1) Ensure Enlive 240ml TID (ordered per ONS protocol) 2) MVI 1 tab daily 3) Continue current POC Expected Outcomes/Goals: To meet >75% estimated needs Fu 3-5 days Critical Care Time (mins): 81 (critical care time excluding procedures and including cpap trial was 81 mins) Date of Service: Aug 12, 2024 Billing Provider: KEILA FORD MD Common Visit Codes: [id number] CARE 30-74 MIN, [id number] CARE-EACH +30MIN KEILA FORD MD Aug 12, 2024 11:17
[2024-08-12] MEDS: fentaNYL Drip 2500mCg/250mlNS 250 ML IV SCH (11:40)
[2024-08-12] MEDS: LABETALOL HCL 20 MG/4 ML VL IV PRN ×2 (19:02→22:01)
[2024-08-13] VITALS (63 sets, daily range): BP systolic 96–199; BP diastolic 51–123; PULSE 85–121; RESP 14–24; TEMP 98.2–100; O2SAT 92–100
[2024-08-13 05:12] LABS: Hematocrit 37.3 % (36.0-46.0); Hemoglobin 12.2 g/dL (12.2-16.2); Mean Corpuscular Hemoglobin 28.8 pg (28.0-32.0); Mean Corpuscular Hgb Conc. 32.7 g/dL (32.0-36.0); Mean Corpuscular Volume 88.1 fL (80.0-100.0); Platelet Count (auto) 78 10^3/uL (140-450); Red Blood Cells 4.24 10^6/uL (4.0-5.20); White Blood Cell 13.3 10^3/uL (4.4-10.8)
[2024-08-13 05:16] LABS: Band Neutrophils % (manual) 0; Basophils % (manual) 0 (0.0-2.0); Blast Cells 0; Eosinophils % (manual) 0 (0-7); Metamyelocytes % 0; Myelocytes % 0; Promyelocytes % 0; Reactive Lymphocytes 0
[2024-08-13 05:23] LABS: Albumin 3.9 g/dL (3.2-4.8); Alkaline Phosphatase 72 U/L (46-116); Anion Gap 9 (5-15); BUN/Creatinine Ratio 41.1 (10.0-20.0); Calcium 9.5 mg/dL (8.7-10.4); Chloride 99 mmol/L (98-107); Potassium 3.7 mmol/L (3.5-5.1); Sodium 140 mmol/L (136-145); Total Protein 5.8 g/dL (5.7-8.2)
[2024-08-13 05:24] LABS: Bilirubin, Total 0.7 mg/dL (0.2-1.0)
--- NOTE | 2024-08-13 05:30 | DVH ---
EXAM: XY CHEST PORTABLE Indication: resp failure Technique: Frontal view of the chest. Comparison: XY CHEST PORTABLE on DOS: 08/09/24, XY CHEST XRAY 1 VIEW on DOS: 08/08/24, XY CHEST PORTABL E on DOS: 08/08/24, XY CHEST PORTABLE on DOS: 08/07/24, XY CHEST PORTABLE on DOS: 08/06/24, XY CHEST POR TABLE on DOS: 08/09/24 FINDINGS: LUNGS AND PLEURAL SPACES: Stable interstitial opacity. No pneumothorax. HEART: Unremarkable. No cardiomegaly. MEDIASTINUM: Unremarkable. Normal mediastinal contour. BONES/JOINTS: Unremarkable. No acute fracture. TUBES, LINES AND DEVICES: The endotracheal tube (ETT) is in satisfactory position. Enteric tube tip cannot be seen but is below the diaphragm. Left internal jugular central venous catheter tip in the superior vena cava. IMPRESSION: No significant change from the prior exam.
[2024-08-13 05:42] LABS: Alanine Aminotransferase 129 U/L (7-40); Aspartate Aminotransferase 94 U/L (<34); Blood Urea Nitrogen 39 mg/dL (9-23); Carbon Dioxide 32 mmol/L (20-31); Glucose 130 mg/dL (74-106)
[2024-08-13 06:07] LABS: Lymphocytes % (manual) 1 (10.0-50.0); Monocytes % (manual) 2 (0-12); Platelet Estimate Decreased
[2024-08-13 08:30] LABS: Base Excess 4.6 mmol/L (-2.0-3.0)
--- NOTE | 2024-08-13 10:58 | DVHPN2 ---
Progress Note Date Seen: Aug 13, 2024 Medical Necessity Reason Pt with a Central, PICC or Fol: Yes The following are medically ne: Central Line, Luis Catheter Reason for luis catheter: Strict I&O Subjective Patient reports: No new complaints Review of Systems: HEENT:Normal, CVS:Normal, RESPIRATORY:Normal, GI:Normal, :Normal, MSK:Normal, NEURO:Normal Objective vital signs Vital Sign Date Time Temp Pulse Resp B/P (MAP) Pulse Ox O2 Delivery O2 Flow Rate FiO2 08/13/24 09:57 95 20 140/92 (108) 95 30 08/13/24 06:00 Mechanical Ventilator+ 08/13/24 00:00 99.2 99.2 Total Intake and Output 08/12/24 08/12/24 08/13/24 15:00 23:00 07:00 Intake Total 146.63 ml 324.27 ml 276.2 ml Output Total 350 ml 1415 ml Balance 146.63 ml -25.73 ml -1138.8 ml medications Current Medications Medications Dose Ordered Sig/Adam Route Start Time Stop Time Status Last Admin Dose Admin Sodium Chloride 10 ml Q8HR IV 07/28/24 14:00 08/13/24 06:26 10 ML Docusate Sodium 100 mg BIDPRN PRN PO 07/28/24 13:30 Acetaminophen 650 mg Q6HP PRN PO 07/28/24 13:30 Nitroglycerin 0.4 mg Q5MINP PRN SL 07/28/24 13:30 Budesonide 0.5 mg BID NEB 07/28/24 22:00 08/13/24 09:56 0.5 MG Hydralazine HCl 10 mg Q6HP PRN IV 07/28/24 16:00 08/12/24 07:36 10 MG Ipratropium [place] 0.5 mg Q4HPRN PRN NEB 07/29/24 12:45 08/05/24 04:10 0.5 MG Ipratropium [place] 0.5 mg Q4HR NEB 07/30/24 02:00 08/13/24 09:56 0.5 MG Norepinephrine Bitartrate 250 ml @ 3.75 mls/hr Q24H IV 08/02/24 13:30 08/03/24 09:50 3.75 MLS/HR Midazolam HCl 50 ml @ 1 mls/hr Q24H IV 08/02/24 13:30 08/05/24 02:21 9 MLS/HR Enteral Nutritional Formula 1,000 ml 30ML/HR GT 08/03/24 12:30 08/08/24 19:04 1,000 ML Amiodarone HCl 200 mg Q12HR PO 08/03/24 22:00 08/13/24 09:48 200 MG Diagnostic Test (Pha) 1 strip Q6HR 08/03/24 18:00 08/13/24 06:27 1 STRIP Insulin Human Regular FOLLOW SLIDING SCALE Q6HR SC 08/03/24 18:00 08/13/24 00:28 2 UNITS Dextrose 50 ml UD IV 08/03/24 15:00 Methylprednisolone Sodium Succinate 40 mg Q8HR IV 08/05/24 22:00 08/13/24 06:26 40 MG Doxycycline Hyclate 100 ml @ 50 mls/hr Q12HR IV 08/08/24 11:30 08/13/24 09:44 50 MLS/HR Rivaroxaban 15 mg QPM PO 08/08/24 18:00 08/12/24 19:02 15 MG Lactulose 30 ml BID PO 08/08/24 22:00 08/13/24 09:49 30 ML Fluoxetine HCl 20 mg DAILY PO 08/10/24 10:00 08/13/24 09:48 20 MG Alprazolam 0.5 mg [id number] PRN PO 08/09/24 16:30 08/12/24 07:26 0.5 MG Propofol 100 ml @ 3.09 mls/hr Q24H IV 08/09/24 17:30 08/13/24 01:03 3.09 MLS/HR Clonazepam 1 mg Q12HR PO 08/10/24 22:00 08/13/24 09:48 1 MG Fentanyl Citrate 250 ml @ 2.5 mls/hr Q24H IV 08/12/24 09:30 Labetalol HCl 10 mg Q2HPRN PRN IV 08/12/24 20:45 08/13/24 09:48 10 MG Examination: GENERAL:Normal, HEENT:Normal, NECK:Normal, LUNGS:Normal, LUNGS:Abnormal (intubated), CVS:Normal, ABDOMEN:Normal, MSK:Normal, SKIN:Normal, NEURO:Normal, NEURO:Abnormal (sedated), :Normal laboratory and microbiology Laboratory Tests 08/13/24 04:35 Test 08/13/24 04:35 Range/Units Serum Glucose 130 H 74-106 mg/dL Microbiology Date/Time Source Procedure Growth Status 08/11/24 06:45 Urine - [place] Urine Culture - Preliminary Resulted 08/02/24 16:50 Sputum Gram Stain - Final Complete 08/02/24 16:50 Sputum Respiratory Culture - Final Complete 07/30/24 04:23 Nose MRSA Screen - Final Complete 07/28/24 08:46 Blood Blood Culture - Final NO GROWTH AFTER 5 DAYS OF INCUBATION. Complete Problem List/Assessment/Plan Problem List/Assessment/Plan #1 acute on chronic resp failure: on acv , cpap trial- failed, dw daughter- ok with trach #2 ?pneumonia- gram positive/neg: doxy, CT CHEST- copd #3 htn #4 dm: ssi #5 a fib with rvr with secondary hypercoagulable state: hold xarelto for trach #6 morbid obesity #7 acute on chronic systolic/diastolic heart failure: dc lasix iv #8 acute renal failure ?vasomotor nephropathy: resolved #9 nutrition: tube feedings #10 thrombocytopenia: improved, hold xarelto for trach #11 RA advance care planning- full code- time spent 19 mins Plan discussed with: Daughter My Orders My Orders Orders - KEILA FORD MD Procedure Category Date Status Time Chest Portable XY 08/13/24 Resulted 06:00 Abg W/ Co-Ox RT 08/13/24 Logged 06:00 * Picc Line Consult CONS 08/12/24 Transmitted 11:17 D/C Tlc ANDREAS 08/12/24 In Process 11:17 Methylprednisolone PHA 08/13/24 Verified Sod Succ (Solu Medrol 22:00 Dietary Evaluation Review Comments: 1) Ensure Enlive 240ml TID (ordered per ONS protocol) 2) MVI 1 tab daily 3) Continue current POC Expected Outcomes/Goals: To meet >75% estimated needs Fu 3-5 days Critical Care Time (mins): 48 (critical care time excluding procedures is 48 mins) Date of Service: Aug 13, 2024 Billing Provider: KEILA FORD MD Common Visit Codes: [id number] CARE 30-74 MIN KEILA FORD MD Aug 13, 2024 10:57
[2024-08-13] MEDS: METOPROLOL TARTRATE 25 MG TAB PO ONE (12:11)
[2024-08-13] MEDS: methylPREDNISolone SOD SUCC 40 MG/ML VL IV SCH (23:35)
[2024-08-13] MEDS: METOPROLOL TARTRATE 25 MG TAB PO SCH (23:35)
[2024-08-14] VITALS (70 sets, daily range): BP systolic 90–155; BP diastolic 30–116; PULSE 74–138; RESP 10–20; TEMP 97.2–99.3; O2SAT 99–100
--- NOTE | 2024-08-14 05:18 | DVH ---
CHEST RADIOGRAPH Indication: intubated Technique: Single frontal view of the chest was obtained COMPARISON: XY CHEST PORTABLE on DOS: 08/13/24, XY CHEST PORTABLE on DOS: 08/09/24, XY CHEST XRAY 1 VIE W on DOS: 08/08/24, XY CHEST PORTABLE on DOS: 08/08/24, XY CHEST PORTABLE on DOS: 08/07/24 FINDINGS: Lines and Tubes: Endotracheal tube, enteric catheter and left central venous catheter in satisfactory position Lungs: Patchy bilateral airspace disease Pleura: No effusion. No pneumothorax. Cardiomediastinal contours: Unremarkable Bones: Unremarkable IMPRESSION: Lines and tubes in satisfactory position. No significant interval change.
[2024-08-14 05:28] LABS: Hematocrit 35.1 % (36.0-46.0); Hemoglobin 11.4 g/dL (12.2-16.2); Mean Corpuscular Hemoglobin 28.8 pg (28.0-32.0); Mean Corpuscular Hgb Conc. 32.6 g/dL (32.0-36.0); Mean Corpuscular Volume 88.5 fL (80.0-100.0); Platelet Count (auto) 80 10^3/uL (140-450); Red Blood Cells 3.96 10^6/uL (4.0-5.20); Red Cell Distribution Width 17.7 % (11.8-14.3); White Blood Cell 13.8 10^3/uL (4.4-10.8)
[2024-08-14 05:38] LABS: Anion Gap 8 (5-15); Carbon Dioxide 32 mmol/L (20-31); Chloride 101 mmol/L (98-107); Potassium 3.7 mmol/L (3.5-5.1); Sodium 141 mmol/L (136-145)
[2024-08-14 05:39] LABS: Band Neutrophils % (manual) 0; Basophils % (manual) 0 (0.0-2.0); Blast Cells 0; Eosinophils % (manual) 0 (0-7); Metamyelocytes % 0; Myelocytes % 0; Promyelocytes % 0; Reactive Lymphocytes 0
[2024-08-14 05:40] LABS: Calcium 9.1 mg/dL (8.7-10.4)
[2024-08-14 05:43] LABS: INR 1.16 (0.9-1.15); Partial Thromboplastin Time 20.2 SEC (24.5-34.5); Prothrombin Time 12.1 sec (9.3-11.8)
[2024-08-14 05:44] LABS: BUN/Creatinine Ratio 47.6 (10.0-20.0); Blood Urea Nitrogen 39 mg/dL (9-23); Glucose 119 mg/dL (74-106)
[2024-08-14 06:23] LABS: Lymphocytes % (manual) 1 (10.0-50.0); Monocytes % (manual) 2 (0-12); Platelet Estimate Decreased
[2024-08-14 07:12] LABS: Base Excess 8.3 mmol/L (-2.0-3.0)
--- NOTE | 2024-08-14 12:24 | DVHPN2 ---
Progress Note Date Seen: Aug 14, 2024 Medical Necessity Reason Pt with a Central, PICC or Fol: Yes The following are medically ne: Central Line, Luis Catheter Reason for luis catheter: Strict I&O Subjective Patient reports: No new complaints Review of Systems: HEENT:Normal, CVS:Normal, RESPIRATORY:Normal, GI:Normal, :Normal, MSK:Normal, NEURO:Normal Objective vital signs Vital Sign Date Time Temp Pulse Resp B/P (MAP) Pulse Ox O2 Delivery O2 Flow Rate FiO2 08/14/24 12:16 105 18 102/67 (79) 100 30 08/14/24 10:00 Mechanical Ventilator+ 08/14/24 08:00 98.8 209.8 Total Intake and Output 08/13/24 08/13/24 08/14/24 15:00 23:00 07:00 Intake Total 141.54 ml 375.5 ml 274.0 ml Output Total 450 ml 400 ml Balance 141.54 ml -74.5 ml -126.0 ml medications Current Medications Medications Dose Ordered Sig/Adam Route Start Time Stop Time Status Last Admin Dose Admin Sodium Chloride 10 ml Q8HR IV 07/28/24 14:00 08/14/24 06:00 10 ML Docusate Sodium 100 mg BIDPRN PRN PO 07/28/24 13:30 Acetaminophen 650 mg Q6HP PRN PO 07/28/24 13:30 Nitroglycerin 0.4 mg Q5MINP PRN SL 07/28/24 13:30 Budesonide 0.5 mg BID NEB 07/28/24 22:00 08/14/24 06:01 0.5 MG Ipratropium [place] 0.5 mg Q4HPRN PRN NEB 07/29/24 12:45 08/05/24 04:10 0.5 MG Ipratropium [place] 0.5 mg Q4HR NEB 07/30/24 02:00 08/14/24 10:05 0.5 MG Norepinephrine Bitartrate 250 ml @ 3.75 mls/hr Q24H IV 08/02/24 13:30 08/03/24 09:50 3.75 MLS/HR Midazolam HCl 50 ml @ 1 mls/hr Q24H IV 08/02/24 13:30 08/13/24 19:42 3 MLS/HR Enteral Nutritional Formula 1,000 ml 30ML/HR GT 08/03/24 12:30 08/13/24 16:02 1,000 ML Amiodarone HCl 200 mg Q12HR PO 08/03/24 22:00 08/14/24 10:36 200 MG Diagnostic Test (Pha) 1 strip Q6HR 08/03/24 18:00 08/14/24 06:00 1 STRIP Insulin Human Regular FOLLOW SLIDING SCALE Q6HR SC 08/03/24 18:00 08/13/24 00:28 2 UNITS Dextrose 50 ml UD IV 08/03/24 15:00 Doxycycline Hyclate 100 ml @ 50 mls/hr Q12HR IV 08/08/24 11:30 08/14/24 10:39 50 MLS/HR Lactulose 30 ml BID PO 08/08/24 22:00 08/13/24 09:49 30 ML Fluoxetine HCl 20 mg DAILY PO 08/10/24 10:00 08/14/24 10:36 20 MG Propofol 100 ml @ 3.09 mls/hr Q24H IV 08/09/24 17:30 08/13/24 01:03 3.09 MLS/HR Fentanyl Citrate 250 ml @ 2.5 mls/hr Q24H IV 08/12/24 09:30 08/13/24 11:56 2.5 MLS/HR Labetalol HCl 10 mg Q2HPRN PRN IV 08/12/24 20:45 08/13/24 12:40 10 MG Methylprednisolone Sodium Succinate 40 mg Q12HR IV 08/13/24 22:00 08/14/24 10:39 40 MG Metoprolol Tartrate 25 mg BID PO 08/13/24 22:00 08/13/24 23:35 25 MG Examination: GENERAL:Normal, HEENT:Normal, NECK:Normal, LUNGS:Normal, LUNGS:Abnormal (intubated), CVS:Normal, ABDOMEN:Normal, MSK:Normal, SKIN:Normal, NEURO:Normal, :Normal laboratory and microbiology Laboratory Tests 08/14/24 04:59 08/14/24 04:45 Test 08/14/24 04:45 Range/Units Serum Glucose 119 H 74-106 mg/dL Microbiology Date/Time Source Procedure Growth Status 08/11/24 06:45 Urine - Luis [place] Urine Culture - Final Presumptive Kelle albicans Complete 08/02/24 16:50 Sputum Gram Stain - Final Complete 08/02/24 16:50 Sputum Respiratory Culture - Final Complete 07/30/24 04:23 Nose MRSA Screen - Final Complete 07/28/24 08:46 Blood Blood Culture - Final NO GROWTH AFTER 5 DAYS OF INCUBATION. Complete Problem List/Assessment/Plan Problem List/Assessment/Plan #1 acute on chronic resp failure: on acv , cpap trial- failed, dw daughter- trach today #2 ?pneumonia- gram positive/neg: doxy, CT CHEST- copd #3 htn #4 dm: ssi #5 a fib with rvr with secondary hypercoagulable state: hold xarelto for trach #6 morbid obesity #7 acute on chronic systolic/diastolic heart failure: dc lasix iv #8 acute renal failure ?vasomotor nephropathy: resolved #9 nutrition: tube feedings #10 thrombocytopenia: improved, hold xarelto for trach #11 RA advance care planning- full code- time spent 19 mins Plan discussed with: Other (rn) My Orders My Orders Orders - KEILA FORD MD Procedure Category Date Status Time Chest Portable XY 08/14/24 Resulted 04:45 Abg W/ Co-Ox RT 08/14/24 Logged 06:00 * Picc Line Consult CONS 08/14/24 Transmitted 12:18 Dietary Evaluation Review Comments: 1) Ensure Enlive 240ml TID (ordered per ONS protocol) 2) MVI 1 tab daily 3) Continue current POC Expected Outcomes/Goals: To meet >75% estimated needs Fu 3-5 days Critical Care Time (mins): 48 (critical care time excluding procedures is 48 mins) Date of Service: Aug 14, 2024 Billing Provider: KEILA FORD MD Common Visit Codes: [id number] CARE 30-74 MIN KEILA FORD MD Aug 14, 2024 12:24
[2024-08-14] MEDS: LIDOCAINE 1% (LOCAL ANESTH.) PF 5ml SDV ID ONE (14:16)
[2024-08-14] MEDS ORDERED: HYDROmorphone HCL 2 MG/ML VL/or syr ONE (16:17)
[2024-08-14] MEDS ORDERED: MIDAZOLAM HCL 2MG/2ML 2ml VIAL (1mg/ml) ONE (16:18)
[2024-08-14] MEDS ORDERED: fentaNYL CITRATE 100 MCG/2 ML VL ONE (16:18)
[2024-08-14] MEDS: LIDOCAINE W/ EPINEPHRINE 1% 20ML VIAL ONE (16:39)
[2024-08-14] MEDS: BUPIVACAINE HCL 0.25% P/F 10 ML VIAL ONE (16:39)
[2024-08-14] MEDS ORDERED: PROPOFOL 10 MG/ML 20 ML IV ONE (16:55)
[2024-08-14] MEDS ORDERED: DexAMETHasone SOD PHOS 10MG/1ML VIAL INJ ONE (16:55)
--- NOTE | 2024-08-14 17:48 | DVHOP ---
DATE OF SURGERY: 08/14/2024 PREOPERATIVE DIAGNOSIS: Ventilator-dependent respiratory failure. POSTOPERATIVE DIAGNOSIS: Ventilator-dependent respiratory failure. SURGEON: Levon Ambrocio MD [employer]ATIONS RECRUITER: Duke Sandy NP ANESTHESIA: General endotracheal ANESTHESIOLOGIST: Dr. King PROCEDURE: Tracheostomy. DESCRIPTION OF PROCEDURE: Under general endotracheal anesthesia with the patient's skin prepped and draped, infiltrated with 0.25% Marcaine and 0.5% Xylocaine with epinephrine. An incision was made anteriorly in a vertical fashion and deepened with electrocautery through adipose tissue. The strap muscles were divided in the midline and retracted laterally. The thyroid was visualized and mobilized superiorly. The trachea was then exposed and an incision was made between the fifth and fourth ring after the patient was placed on room air to minimize the likelihood of airway fire. The tracheotomy was then dilated and held back with a tracheotomy hook and a size 8 tracheostomy tube was advanced through the tracheotomy as the endotracheal tube was being withdrawn by the anesthesiologist. Reaching the final position, the tracheostomy was secured with insufflation with 10 mL of air into the cuff. There was an immediate capture of CO2 and returned to normal ventilation. The tracheostomy was secured to the skin with two 0 Prolene sutures and a circumferential umbilical tape. The patient remained in unchanged clinical condition at the termination of the procedure and she left the operating room following an accurate needle and sponge counts. Her daughter was thoroughly informed by phone at [phone]. Chest x-ray was ordered and is pending at the time of this dictation. MD JOCY Colvin/DARWIN TID: [id number] RECEIPT: [id number]
--- NOTE | 2024-08-14 18:26 | DVH ---
CHEST RADIOGRAPH Indication: tracheostomy Technique: Single frontal view of the chest was obtained Comparison: XY CHEST PORTABLE on DOS: 08/14/24, XY CHEST PORTABLE on DOS: 08/13/24, XY CHEST PORTABLE o n DOS: 08/09/24 FINDINGS: Lines and Tubes: Enteric tube, right upper extremity pick and tracheostomy tube are in satisfactory p osition. Interval removal of the endotracheal tube and left IJ approach central venous catheter. Lungs: No focal consolidation. Hazy opacification of the right hemithorax which is most likely from o verlying structures. Slight Image rotation to the Right. Pleura: No effusion. No pneumothorax. Cardiomediastinal contours: Unremarkable Bones: No acute osseous abnormality. IMPRESSION: No acute cardiopulmonary disease. Interval removal of the endotracheal tube and left IJ approach central venous catheter. Interval placement of a right upper extremity PICC and tracheostomy tube which in satisfactory positi on. Enteric tube is in satisfactory position.
[2024-08-14] MEDS: SODIUM CHLOR 0.9% PF (SALINE LOCK) 10ML VIAL/SYR IV SCH (22:21)
[2024-08-14] MEDS: LEVALBUTEROL HCL 1.25 MG/3 ML NEB NEB SCH (22:37)
[2024-08-15] VITALS (59 sets, daily range): BP systolic 91–196; BP diastolic 37–95; PULSE 80–151; RESP 16–22; TEMP 97.9–98.6; O2SAT 98–100
[2024-08-15 05:42] LABS: Hematocrit 31.8 % (36.0-46.0); Hemoglobin 10.6 g/dL (12.2-16.2); Mean Corpuscular Hemoglobin 29.5 pg (28.0-32.0); Mean Corpuscular Hgb Conc. 33.4 g/dL (32.0-36.0); Mean Corpuscular Volume 88.2 fL (80.0-100.0); Platelet Count (auto) 60 10^3/uL (140-450); Red Blood Cells 3.61 10^6/uL (4.0-5.20); Red Cell Distribution Width 17.6 % (11.8-14.3); White Blood Cell 10.6 10^3/uL (4.4-10.8)
[2024-08-15 05:44] LABS: Band Neutrophils % (manual) 0; Basophils % (manual) 0 (0.0-2.0); Blast Cells 0; Eosinophils % (manual) 0 (0-7); Lymphocytes % (manual) 0 (10.0-50.0); Metamyelocytes % 0; Myelocytes % 0; Promyelocytes % 0; Reactive Lymphocytes 0
--- NOTE | 2024-08-15 05:48 | DVH ---
EXAM: XR Chest, 1 View CLINICAL INDICATION: resp failure TECHNIQUE: Frontal view of the chest. COMPARISON: No relevant prior studies available. FINDINGS: LUNGS AND PLEURAL SPACES: Improving pulmonary congestion. No consolidation. No pneumothorax. HEART: Unremarkable. No cardiomegaly. MEDIASTINUM: Unremarkable. Normal mediastinal contour. BONES/JOINTS: Unremarkable. No acute fracture. TUBES, LINES AND DEVICES: Tracheostomy tube in satisfactory position. Enteric tube tip cannot be s een but is below the diaphragm. OTHER FINDINGS: Comparison XY CHEST XRAY 1 VIEW on DOS: 08/14/24, XY CHEST PORTABLE on DOS: 08/14/24, XY CHEST PORTABLE on DOS: 08/13/24, XY CHEST PORTABLE on DOS: 08/09/24, XY CHEST XRAY 1 VIEW on DOS: . IMPRESSION: Improving pulmonary congestion. HS:Y
[2024-08-15 06:04] LABS: Alanine Aminotransferase 114 U/L (7-40); Albumin 3.3 g/dL (3.2-4.8); Alkaline Phosphatase 60 U/L (46-116); Anion Gap 10 (5-15); Aspartate Aminotransferase 102 U/L (<34); BUN/Creatinine Ratio 48.8 (10.0-20.0); Bilirubin, Total 0.8 mg/dL (0.2-1.0); Blood Urea Nitrogen 40 mg/dL (9-23); Calcium 8.7 mg/dL (8.7-10.4); Carbon Dioxide 29 mmol/L (20-31); Chloride 104 mmol/L (98-107); Glucose 114 mg/dL (74-106); Sodium 143 mmol/L (136-145)
[2024-08-15 06:32] LABS: Monocytes % (manual) 1 (0-12); Platelet Estimate Decreased
--- NOTE | 2024-08-15 07:38 | DVHPN2 ---
Progress Note Date Seen: Aug 15, 2024 Medical Necessity Reason Pt with a Central, PICC or Fol: Yes The following are medically ne: Central Line, Luis Catheter Reason for luis catheter: Strict I&O Objective vital signs Vital Sign Date Time Temp Pulse Resp B/P (MAP) Pulse Ox O2 Delivery O2 Flow Rate FiO2 08/15/24 04:07 115 18 111/62 (78) 98 30 08/15/24 04:00 Mechanical Ventilator+ 08/15/24 00:15 98.2 208.8 Total Intake and Output 08/14/24 08/14/24 08/15/24 15:00 23:00 07:00 Intake Total 169 ml 303.0 ml 259.5 ml Output Total 400 ml 575 ml Balance 169 ml -97.0 ml -315.5 ml medications Current Medications Medications Dose Ordered Sig/Adam Route Start Time Stop Time Status Last Admin Dose Admin Sodium Chloride 10 ml Q8HR IV 07/28/24 14:00 08/15/24 06:07 10 ML Docusate Sodium 100 mg BIDPRN PRN PO 07/28/24 13:30 Acetaminophen 650 mg Q6HP PRN PO 07/28/24 13:30 Nitroglycerin 0.4 mg Q5MINP PRN SL 07/28/24 13:30 Budesonide 0.5 mg BID NEB 07/28/24 22:00 08/15/24 06:19 0.5 MG Ipratropium [place] 0.5 mg Q4HPRN PRN NEB 07/29/24 12:45 08/05/24 04:10 0.5 MG Ipratropium [place] 0.5 mg Q4HR NEB 07/30/24 02:00 08/15/24 06:19 0.5 MG Norepinephrine Bitartrate 250 ml @ 3.75 mls/hr Q24H IV 08/02/24 13:30 08/03/24 09:50 3.75 MLS/HR Midazolam HCl 50 ml @ 1 mls/hr Q24H IV 08/02/24 13:30 08/15/24 02:25 3 MLS/HR Enteral Nutritional Formula 1,000 ml 30ML/HR GT 08/03/24 12:30 08/14/24 17:53 1,000 ML Amiodarone HCl 200 mg Q12HR PO 08/03/24 22:00 08/14/24 22:19 200 MG Diagnostic Test (Pha) 1 strip Q6HR 08/03/24 18:00 08/15/24 06:07 1 STRIP Insulin Human Regular FOLLOW SLIDING SCALE Q6HR SC 08/03/24 18:00 08/13/24 00:28 2 UNITS Dextrose 50 ml UD IV 08/03/24 15:00 Doxycycline Hyclate 100 ml @ 50 mls/hr Q12HR IV 08/08/24 11:30 08/14/24 22:19 50 MLS/HR Lactulose 30 ml BID PO 08/08/24 22:00 08/13/24 09:49 30 ML Fluoxetine HCl 20 mg DAILY PO 08/10/24 10:00 08/14/24 10:36 20 MG Propofol 100 ml @ 3.09 mls/hr Q24H IV 08/09/24 17:30 08/13/24 01:03 3.09 MLS/HR Fentanyl Citrate 250 ml @ 2.5 mls/hr Q24H IV 08/12/24 09:30 08/15/24 02:25 7.5 MLS/HR Labetalol HCl 10 mg Q2HPRN PRN IV 08/12/24 20:45 08/13/24 12:40 10 MG Methylprednisolone Sodium Succinate 40 mg Q12HR IV 08/13/24 22:00 08/14/24 22:19 40 MG Metoprolol Tartrate 25 mg BID PO 08/13/24 22:00 08/14/24 22:20 25 MG Sodium Chloride 10 ml QSHIFT@10,22 IV 08/14/24 22:00 08/14/24 22:21 10 ML Levalbuterol HCl 1.25 mg Q4HR NEB 08/14/24 22:00 08/15/24 06:19 1.25 MG laboratory and microbiology Laboratory Tests 08/15/24 04:50 Test 08/15/24 04:50 Range/Units Serum Glucose 114 H 74-106 mg/dL Problem List/Assessment/Plan Problem List/Assessment/Plan 08/15/24 cxr reviewed, tracheostomy in good position, no pneumothorax, no mediastinal widening, no problems reported with tracheostomy over night, i will sign off, please recall if needed Plan discussed with: Other Dietary Evaluation Review Comments: 1) Ensure Enlive 240ml TID (ordered per ONS protocol) 2) MVI 1 tab daily 3) Continue current POC Expected Outcomes/Goals: To meet >75% estimated needs Fu 3-5 days WISAM JORGE MD Aug 15, 2024 07:38
[2024-08-15] MEDS: dilTIAZem 25 MG/5 ML VIAL IV ONE ×3 (10:08→10:26)
[2024-08-15] MEDS: dilTIAZem 125mg/125ml BAG KIT 100 ML IV SCH (10:47)
--- NOTE | 2024-08-15 11:20 | DVHPN2 ---
Progress Note Date Seen: Aug 15, 2024 Medical Necessity Reason Pt with a Central, PICC or Fol: Yes The following are medically ne: PICC Line, Luis Catheter Reason for luis catheter: Strict I&O Subjective Patient reports: No new complaints Review of Systems: HEENT:Normal, CVS:Normal, RESPIRATORY:Normal, GI:Normal, :Normal, MSK:Normal, NEURO:Normal Objective vital signs Vital Sign Date Time Temp Pulse Resp B/P (MAP) Pulse Ox O2 Delivery O2 Flow Rate FiO2 08/15/24 10:47 116/73 08/15/24 09:55 145 08/15/24 09:44 18 99 30 08/15/24 08:15 98.4 209.1 08/15/24 08:00 Mechanical Ventilator+ Total Intake and Output 08/14/24 08/14/24 08/15/24 15:00 23:00 07:00 Intake Total 169 ml 303.0 ml 259.5 ml Output Total 400 ml 575 ml Balance 169 ml -97.0 ml -315.5 ml medications Current Medications Medications Dose Ordered Sig/Adam Route Start Time Stop Time Status Last Admin Dose Admin Sodium Chloride 10 ml Q8HR IV 07/28/24 14:00 08/15/24 06:07 10 ML Docusate Sodium 100 mg BIDPRN PRN PO 07/28/24 13:30 Acetaminophen 650 mg Q6HP PRN PO 07/28/24 13:30 Nitroglycerin 0.4 mg Q5MINP PRN SL 07/28/24 13:30 Budesonide 0.5 mg BID NEB 07/28/24 22:00 08/15/24 06:19 0.5 MG Ipratropium [place] 0.5 mg Q4HPRN PRN NEB 07/29/24 12:45 08/05/24 04:10 0.5 MG Ipratropium [place] 0.5 mg Q4HR NEB 07/30/24 02:00 08/15/24 09:44 0.5 MG Norepinephrine Bitartrate 250 ml @ 3.75 mls/hr Q24H IV 08/02/24 13:30 08/03/24 09:50 3.75 MLS/HR Midazolam HCl 50 ml @ 1 mls/hr Q24H IV 08/02/24 13:30 08/15/24 02:25 3 MLS/HR Enteral Nutritional Formula 1,000 ml 30ML/HR GT 08/03/24 12:30 08/14/24 17:53 1,000 ML Amiodarone HCl 200 mg Q12HR PO 08/03/24 22:00 08/15/24 09:55 200 MG Diagnostic Test (Pha) 1 strip Q6HR 08/03/24 18:00 08/15/24 06:07 1 STRIP Insulin Human Regular FOLLOW SLIDING SCALE Q6HR SC 08/03/24 18:00 08/13/24 00:28 2 UNITS Dextrose 50 ml UD IV 08/03/24 15:00 Doxycycline Hyclate 100 ml @ 50 mls/hr Q12HR IV 08/08/24 11:30 08/15/24 10:01 50 MLS/HR Lactulose 30 ml BID PO 08/08/24 22:00 08/15/24 09:57 30 ML Fluoxetine HCl 20 mg DAILY PO 08/10/24 10:00 08/15/24 09:57 20 MG Propofol 100 ml @ 3.09 mls/hr Q24H IV 08/09/24 17:30 08/13/24 01:03 3.09 MLS/HR Fentanyl Citrate 250 ml @ 2.5 mls/hr Q24H IV 08/12/24 09:30 08/15/24 02:25 7.5 MLS/HR Labetalol HCl 10 mg Q2HPRN PRN IV 08/12/24 20:45 08/13/24 12:40 10 MG Methylprednisolone Sodium Succinate 40 mg Q12HR IV 08/13/24 22:00 08/15/24 09:58 40 MG Metoprolol Tartrate 25 mg BID PO 08/13/24 22:00 08/15/24 09:55 25 MG Sodium Chloride 10 ml QSHIFT@10,22 IV 08/14/24 22:00 08/15/24 10:01 10 ML Levalbuterol HCl 1.25 mg Q4HR NEB 08/14/24 22:00 08/15/24 09:44 1.25 MG Diltiazem HCl 100 ml @ 5 mls/hr Q20H IV 08/15/24 10:30 08/15/24 10:47 5 MLS/HR Examination: GENERAL:Normal, HEENT:Normal, NECK:Normal, LUNGS:Normal, LUNGS:Abnormal (intubated), CVS:Normal, CVS:Abnormal (tachycardia), ABDOMEN:Normal, MSK:Normal, SKIN:Normal, NEURO:Normal, :Normal laboratory and microbiology Laboratory Tests 08/15/24 04:50 Test 08/15/24 04:50 Range/Units Serum Glucose 114 H 74-106 mg/dL Microbiology Date/Time Source Procedure Growth Status 08/11/24 06:45 Urine - Luis [place] Urine Culture - Final Presumptive Kelle albicans Complete 08/02/24 16:50 Sputum Gram Stain - Final Complete 08/02/24 16:50 Sputum Respiratory Culture - Final Complete 07/30/24 04:23 Nose MRSA Screen - Final Complete 07/28/24 08:46 Blood Blood Culture - Final NO GROWTH AFTER 5 DAYS OF INCUBATION. Complete Problem List/Assessment/Plan Problem List/Assessment/Plan #1 acute on chronic resp failure: on acv , cpap trial- failed, dw daughter- s/p trach #2 ?pneumonia- gram positive/neg: doxy, CT CHEST- copd #3 htn #4 dm: ssi #5 a fib with rvr with secondary hypercoagulable state: cardizem drip, amiodarone, lopressor #6 morbid obesity #7 acute on chronic systolic/diastolic heart failure: dc lasix iv #8 acute renal failure ?vasomotor nephropathy: resolved #9 nutrition: tube feedings #10 thrombocytopenia: improved, hold xarelto #11 RA long discussion with daughter- explained plan of care advance care planning- full code- time spent 19 mins Plan discussed with: Daughter My Orders My Orders Orders - KEILA FORD MD Procedure Category Date Status Time * Picc Line Consult CONS 08/14/24 Transmitted 12:18 * Employment Trainer CONS 08/14/24 Transmitted Consult Chest Portable XY 08/15/24 Resulted 06:00 Abg W/ Co-Ox RT 08/15/24 Logged 06:00 Change Dressing Prn ANDREAS 08/14/24 In Process 14:09 Sodium Chloride Lock PHA 08/14/24 In Process (Saline Lock Ns) 22:00 Do Not Use Picc For ANDREAS 08/14/24 In Process Blood Cult 14:09 May Draw Blood From ANDREAS 08/14/24 In Process Picc 14:09 Ok To Use Picc ANDREAS 08/14/24 In Process 14:09 Change Picc Dressing ANDREAS 08/14/24 In Process Q7 Days 14:09 Levalbuterol Hcl PHA 08/14/24 In Process (Xopenex Medneb) 22:00 Diltiazem 125mg/125ml PHA 08/15/24 In Process Bag Kit (Cardizem) 10:30 Sodium Chloride 0.9% PHA 08/15/24 Logged 11:15 * Cardiology Consult CONS 08/15/24 Transmitted 11:05 Nutritional PHA 08/15/24 Verified Supplements (Jevity 11:15 Complete Blood Count LAB 08/16/24 Verified 06:00 Comprehensive LAB 08/16/24 Verified Metabolic Panel 06:00 Chest Portable XY 08/16/24 Verified 06:00 Abg W/ Co-Ox RT 08/16/24 Verified 06:00 Dietary Evaluation Review Comments: 1) Ensure Enlive 240ml TID (ordered per ONS protocol) 2) MVI 1 tab daily 3) Continue current POC Expected Outcomes/Goals: To meet >75% estimated needs Fu 3-5 days Critical Care Time (mins): 81 (critical care time including monitoring for a fib/ dw family is 81 mins) Date of Service: Aug 15, 2024 Billing Provider: KEILA FORD MD Common Visit Codes: 43582-[id number] CARE 30-74 MIN, [id number] CARE-EACH +30MIN KEILA FORD MD Aug 15, 2024 11:20
[2024-08-15] MEDS: SODIUM CHLORIDE 0.9% 250 ML IV ONE (11:41)
[2024-08-15 14:56] LABS: Base Excess 5.1 mmol/L (-2.0-3.0)
[2024-08-15] MEDS: Jevity 1.2 Cal/Fiber 1 Liter GT SCH (21:53)
[2024-08-15] MEDS: SODIUM CHLORIDE 0.9% 360 ML IV SCH (22:36)
[2024-08-16] VITALS (93 sets, daily range): BP systolic 80–179; BP diastolic 37–103; PULSE 74–150; RESP 10–19; TEMP 95–99.2; O2SAT 95–100
[2024-08-16 05:39] LABS: Hematocrit 32.6 % (36.0-46.0); Hemoglobin 10.7 g/dL (12.2-16.2); Mean Corpuscular Hemoglobin 29.1 pg (28.0-32.0); Mean Corpuscular Volume 88.2 fL (80.0-100.0); Platelet Count (auto) 60 10^3/uL (140-450); Red Cell Distribution Width 17.7 % (11.8-14.3); White Blood Cell 10.9 10^3/uL (4.4-10.8)
[2024-08-16 05:43] LABS: Band Neutrophils % (manual) 0; Basophils % (manual) 0 (0.0-2.0); Blast Cells 0; Eosinophils % (manual) 0 (0-7); Metamyelocytes % 0; Myelocytes % 0; Promyelocytes % 0; Reactive Lymphocytes 0
--- NOTE | 2024-08-16 05:43 | DVH ---
Exam: US US GUIDED VASCULAR ACCESS Clinical History: PICC LINE PLACEMENT Comparison: None Technique: Targeted sonographic evaluation of the soft tissues of the arm vein was obtained utilizing grayscale and color Doppler imaging. Findings/Impression: Sonographic assistance for PICC line placement. Please refer to procedural report for detailed findin gs.
--- NOTE | 2024-08-16 05:44 | DVH ---
CHEST RADIOGRAPH Indication: RESP FAILURE Technique: Single frontal view of the chest was obtained COMPARISON: XY CHEST PORTABLE on DOS: 08/15/24, XY CHEST XRAY 1 VIEW on DOS: 08/14/24, XY CHEST PORTABL E on DOS: 08/14/24, XY CHEST PORTABLE on DOS: 08/13/24, XY CHEST PORTABLE on DOS: 08/09/24 FINDINGS: Lines and Tubes: Tracheostomy, enteric catheter and right PICC in satisfactory position. Lungs: Patchy bilateral airspace disease. Pleura: No effusion. No pneumothorax. Cardiomediastinal contours: Unremarkable Bones: Unremarkable IMPRESSION: Lines and tubes in satisfactory position. No significant interval change.
[2024-08-16 05:47] LABS: Albumin 3.5 g/dL (3.2-4.8); Alkaline Phosphatase 70 U/L (46-116); Anion Gap 9 (5-15); BUN/Creatinine Ratio 44.1 (10.0-20.0); Calcium 9.7 mg/dL (8.7-10.4); Carbon Dioxide 28 mmol/L (20-31); Chloride 105 mmol/L (98-107); Potassium 3.9 mmol/L (3.5-5.1); Sodium 142 mmol/L (136-145)
[2024-08-16 05:48] LABS: Bilirubin, Total 0.7 mg/dL (0.2-1.0)
[2024-08-16 05:52] LABS: Alanine Aminotransferase 120 U/L (7-40); Aspartate Aminotransferase 129 U/L (<34); Blood Urea Nitrogen 41 mg/dL (9-23); Glucose 119 mg/dL (74-106); Total Protein 5.2 g/dL (5.7-8.2)
[2024-08-16 06:33] LABS: Lymphocytes % (manual) 1 (10.0-50.0); Monocytes % (manual) 2 (0-12)
[2024-08-16 06:34] LABS: Ovalocytes FEW; Platelet Estimate Decreased
[2024-08-16 07:46] LABS: Base Excess 1.8 mmol/L (-2.0-3.0)
--- NOTE | 2024-08-16 08:01 | ECG ---
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
--- NOTE | 2024-08-16 08:01 | ECG ---
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
--- NOTE | 2024-08-16 11:38 | DVHINCON2 ---
Date Seen: Aug 16, 2024 Referring Physician MD Ivonne Reason for Consultation Afib RVR History of Present Illness This is a 68-year-old female patient who presents to emergency room with chief complaint of worsening shortness of breath. During this admission, the patient was intubated for airway protection. Subsequently, she has undergone a tracheostomy placement on 08/14/2024. Cardiology has been consulted at this time for atrial fibrillation with rapid ventricular response. Initial twelve lead electrocardiogram reveals atrial fibrillation Q-waves seen in inferior leads. At the time of assessment, the patient remains in atrial fibrillation with uncontrolled rate. Initial troponin level of 104ng/L with a flat trend thereafter. At the time of assessment, the patient is chemically sedated and unable to answer questions. Spoke with patients daughter Jaquan for further history. Significant past medical history includes coronary artery disease status post PTCA x 1 JOCELYN, congestive heart failure, atrial fibrillation (on Eliquis and amiodarone), hypertension, myocardial infarction, CVA, type 2 diabetes mellitus, obstructive sleep apnea with CPAP use, COPD with home O2, and obesity. The patient's daughter states that the patient follows up with a stock saw operator at "[facility]". Past Medical History Past medical history reviewed. No other significant than mentioned above. Past Surgical History No previous surgeries per patient's daughter Family History: Diabetes mellitus G8 MOTHER Hypertension G8 MOTHER G8 FATHER Family History Family history reviewed. Social History Denies the use of tobacco, alcohol or illicit drugs. Allergies: Coded Allergies: NO KNOWN ALLERGIES (Unverified , 02/21/19) Home Meds Active Scripts Apixaban Base (ELIQUIS) 5 Mg Tab, 5 MG PO BID, #60 TAB Prov:DIANA FRAUSTO MD 05/05/19 Prednisone (Prednisone) 20 Mg Tab, 20 MG PO BID, #10 MG Prov:DIANA FRAUSTO MD 05/05/19 Ipratropium [place] (Ipratropium [place]) 0.02 % [place], 0.5 MG NEB TID, #30 INH Prov:DIANA FRAUSTO MD 05/05/19 Albuterol Sulfate (Ventolin) 2.5 Mg/0.5 Ml Nb, 2.5 MG NEB TID, #30 INH Prov:DIANA FRAUSTO MD 05/05/19 Fluticasone-Salmeterol (Advair Diskus 250/50) 1 Puff Ih, 1 PUFF INH BID, #1 INHALER 0 Refills Prov:DIANA FRAUSTO MD 05/05/19 Reported Medications Metoprolol Succinate (Metoprolol Succinate Er) 25 Mg Tab, 1 TAB PO DAILY 08/12/24 Upadacitinib (Rinvoq) 15 Mg Tab, 1 TAB PO DAILY 07/28/24 Escitalopram Oxalate (ESCITALOPRAM OXALATE) 20 Mg Tab, 1 TAB PO DAILY 07/28/24 Atorvastatin Calcium (ATORVASTATIN CALCIUM) 80 Mg Tab, 1 TAB PO HS 07/28/24 Furosemide (Furosemide) 40 Mg Tab, 1 TAB PO DAILY 07/28/24 Amiodarone HCl (Amiodarone HCl) 200 Mg Tab, 1 TAB PO DAILY 07/28/24 Metoprolol Tartrate (LOPRESSOR TABLET) 50 Mg Tb, 1 TAB PO BID 07/28/24 Home Meds Home medications reviewed. Current Medications Current Medications Medications (Trade) Dose Ordered Sig/Adam Route PRN Reason Start Time Stop Time Status Last Admin Sodium Chloride 360 ml @ 30 mls/hr Q12H IV 08/15/24 17:15 08/16/24 05:48 Metoprolol Tartrate (Lopressor Tablet) 50 mg BID PO 08/16/24 22:00 UNV Review of Systems Constitutional: No symptom reported Ears, Nose, & Throat: No symptom reported Eyes: No symptom reported Neurological: No symptoms reported Pulmonary/Respiratory: Shortness of breath Cardiovascular: No symptom reported Gastrointestinal: No symptom reported Genitourinary: No symptom reported Musculoskeletal: No symptom reported Skin: No symptom reported Psychiatric: No symptom reported Endocrine: No symptom reported Hematologic/Lymphatic: No symptom reported Vital Signs Vital Signs Date Time Temp Pulse Resp B/P (MAP) Pulse Ox O2 Delivery O2 Flow Rate FiO2 08/16/24 11:15 119 16 133/58 (83) 99 08/16/24 10:02 30 08/16/24 10:00 Mechanical Ventilator+ 08/16/24 08:00 95.0 203.0 Physical Exam General Appearance: Calm, relaxed. Obese Pulmonary/Respiratory: Clear, bilateral breaths sounds. Cardiovascular/Chest: Irregularly irregular rate and rhythm. Peripheral Pulses: 2+ Radial (R). 2+ Radial (L). 2+ Pedal (R). 2+ Pedal (L) Abdominal Exam: Normal bowel sounds. Ankle Exam: Negative ankle edema Lower extremities: Negative lower extremity edema Neuro/Mental Status: Chemically sedated Thoughts/Psych: Deferred Appearance: No acute distress. Skin Exam: Normal inspection. Normal color. Warm and dry. Labs/Diagnostic Data Labs Test 08/16/24 07:34 08/16/24 05:43 08/16/24 05:04 08/15/24 14:39 Range/Units Blood Gas Specimen Type Arterial Blood Gas Sample Site Right radial Blood Gas Patient Temperature 37.0 Arterial Blood Date Drawn [id number] Arterial Blood pH 7.489 H 7.350-7.450 Arterial Blood Partial Pressure CO2 33.4 32.0-45.0 mmHg Arterial Blood Partial Pressure O2 111.0 H 83.0-108.0 mmHg Arterial Blood HCO3 24.8 21.0-28.0 mmol/L Arterial Blood Oxygen Saturation 97.2 94.0-98.0 % Arterial Blood Base Excess 1.8 -2.0-3.0 mmol/L Arterial Blood Oxyhemoglobin 95.9 94.0-98.0 % Arterial Blood Carboxyhemoglobin 1.0 0.5-1.5 % Arterial Blood Methemoglobin 0.3 0.0-1.5 % Eamon Test Modified Blood Gas Total Hemoglobin 11.50 L 12.0-16.0 g/dL Blood Gas Set Respiration Rate 16.0 Blood Gas Modality Vent - ac FiO2 % 30.0 Blood Gas Tidal Volume 450.0 Blood Gas PEEP or CPAP 5.0 POC Glucose 112 H 70-106 mg/dl White Blood Count 10.9 H 4.4-10.8 10^3/uL Red Blood Count 3.70 L 4.0-5.20 10^6/uL Hemoglobin 10.7 L 12.2-16.2 g/dL Hematocrit 32.6 L 36.0-46.0 % Mean Corpuscular Volume 88.2 80.0-100.0 fL Mean Corpuscular Hemoglobin 29.1 28.0-32.0 pg Mean Corpuscular Hemoglobin Concent 33.0 32.0-36.0 g/dL Red Cell Distribution Width 17.7 H 11.8-14.3 % Platelet Count 60 L 140-450 10^3/uL Mean Platelet Volume 10.5 6.9-10.8 fL Neutrophils (%) (Auto) 37.0-80.0 % Lymphocytes (%) (Auto) 10.0-50.0 % Monocytes (%) (Auto) 0.0-12.0 % Basophils (%) (Auto) 0.0-2.0 % Neutrophils # (Auto) 1.6-8.6 10 ^3/uL Lymphocytes # (Auto) 0.4-5.4 10 ^3/uL Monocytes # (Auto) 0-1.3 10 ^3/uL Differential Total Cells Counted 100.0 100 Neutrophils % (Manual) 97 H 37.0-80.0 Band Neutrophils % (Manual) 0 Lymphocytes % (Manual) 1 L 10.0-50.0 Monocytes % (Manual) 2 0-12 Eosinophils % (Manual) 0 0-7 Basophils % (Manual) 0 0.0-2.0 Metamyelocytes % (manual) 0 Myelocytes % (Manual) 0 Promyelocytes % (Manual) 0 Blast Cells % (Manual) 0 Reactive Lymphocytes 0 Platelet Estimate Decreased Ovalocytes Few Schistocytes Few Sodium Level 142 136-145 mmol/L Potassium Level 3.9 3.5-5.1 mmol/L Chloride Level 105 98-107 mmol/L Carbon Dioxide Level 28 20-31 mmol/L Anion Gap 9 5-15 Blood Urea Nitrogen 41 H 9-23 mg/dL Creatinine 0.93 0.550-1.02 mg/dL Glomerular Filtration Rate Calc 67 >90 mL/min BUN/Creatinine Ratio 44.1 H 10.0-20.0 Serum Glucose 119 H 74-106 mg/dL Calcium Level 9.7 8.7-10.4 mg/dL Magnesium Level 2.5 1.6-2.6 mg/dL Total Bilirubin 0.7 0.2-1.0 mg/dL Aspartate Amino Transferase (AST) 129 H <34 U/L Alanine Aminotransferase (ALT) 120 H 7-40 U/L Alkaline Phosphatase 70 46-116 U/L Total Protein 5.2 L 5.7-8.2 g/dL Albumin 3.5 3.2-4.8 g/dL Thyroid Stimulating Hormone (TSH) 0.55 0.55-4.78 uIU/mL Blood Gas Critical Value Read Back Yes Blood Gas Notified Whom Marcelino winn md Blood Gas Notified Time [id number] Blood Gas Notified By Kimmy perera racing board marker Test 08/14/24 04:59 08/12/24 04:40 08/10/24 06:56 08/09/24 09:06 Range/Units Prothrombin Time 12.1 H 9.3-11.8 sec Prothrombin Time INR 1.16 H 0.9-1.15 Activated Partial Thromboplast Time 20.2 L 24.5-34.5 SEC Eosinophils (%) (Auto) 0.0 0.0-7.0 % Eosinophils # (Auto) 0 0-0.8 10 ^3/uL Basophils # (Auto) 0 0-0.2 10 ^3/uL Nucleated Red Blood Cells 0.1 % Phosphorus Level 4.4 2.4-5.1 mg/dL Blood Gas Spontaneous Rate 18 Specimen Drawn By [facility] [place] Blood Gas Pressure Support 8 Test 08/08/24 07:43 08/08/24 04:30 08/07/24 08:44 08/06/24 04:45 Range/Units Blood Gas Liter Flow 60.00 Blood Gas Spontaneous Tidal Volume 505 Random Vancomycin Level 18.8 H 5-10 ug/mL Blood Gas Inspiratory Pressure 28.0 Triglycerides Level 84 < 150 mg/dL Test 08/02/24 10:24 07/30/24 12:35 07/28/24 11:09 07/28/24 08:35 Range/Units Blood Gas EPAP 5 Blood Gas IPAP 12 Urine Color Colorless Yellow Urine Clarity Clear Clear Urine pH 5.5 5.0-9.0 Urine Specific [place] 1.007 1.001-1.035 Urine Protein Negative Negative Urine Ketones Negative Negative Urine Blood 2+ H Negative /uL Urine Nitrite Negative Negative Urine Bilirubin Negative Negative Urine Urobilinogen Normal Negative mg/dL Urine Leukocyte Esterase Negative Negative /uL Urine RBC 21 0 - 4 /hpf Urine Microscopic WBC 3 0-5 /HPF Urine Squamous Epithelial Cells Few <5 /hpf Urine Bacteria Few H None Seen /hpf Urine Hyaline Casts Few 0 - 2 /lpf Urine Mucus Few None Seen Urine Glucose Normal Normal mg/dL Troponin I High Sensitivity 123 *H </=34 ng/L Lactic Acid Level 1.5 0.4-2.0 mmol/L Microbiology Date/Time Source Procedure Growth Status 08/11/24 06:45 Urine - [place] Urine Culture - Final Presumptive Kelle albicans Complete 08/02/24 16:50 Sputum Gram Stain - Final Complete 08/02/24 16:50 Sputum Respiratory Culture - Final Complete 07/30/24 04:23 Nose MRSA Screen - Final Complete 07/28/24 08:46 Blood Blood Culture - Final NO GROWTH AFTER 5 DAYS OF INCUBATION. Complete Assessment Atrial fibrillation with rapid ventricular response (on Eliquis and amiodarone at home) Acute on chronic HFrEF, NYHA class IV Coronary artery disease status post PTCA X 1 JOCELYN Mild mitral regurgitation Hypertension History myocardial infarction Acute hypoxic respiratory failure status post tracheostomy COPD Obstructive sleep apnea with CPAP use Thrombocytopenia History of CVA Acute kidney injury, resolved Transaminitis Morbid obesity Plan/Recommendation We will continue with the following plan/recommendations (Dr. Vu): * Transthoracic echocardiogram reveals EF 35-40% * Initiate guideline directed medical therapy for CHF as tolerated by renal function * Add MRA and SGLT2i with stable renal function * Stop Cardizem as this is contraindicated in patients with a reduced EF * [id number] VASc score: 5 points, HAS-BLED score: 3 points * Continue with beta-cherise for rate control * Patient currently off anticoagulation given thrombocytopenia; SCD's in the meantime. Restart NOAC when appropriate * Continue antiarrhythmic agent, amiodarone * Loading dose digoxin * Monitor and replete electrolytes as needed, keep potassium greater than four and magnesium greater than two * Close Cardiac surveillance Thank you for allowing us to care for this patient. Please call with any questions or concerns. Critical care time spent: 44 minutes This medical document was created using an electronic medical record system with voice recognition software and computerized dictation system. Although this document has been carefully reviewed, there might still be some phonetic and typographical errors. Occasional wrong-word or ``sound-alike substitutions may have occurred due to the inherent limitations of voice recognition software. These areas are purely typographical due to imperfections of the software pro grams and do not reflect any compromise in the patient's medical care. Please read the chart carefully and recognize, using context, where these substitutions have occurred. Plan discussed with: Daughter, Other (Bedside RN) NYHA Physical activity limitations: Class4(Severe)discomfort (w any activit,symptoms at rest) Date of Service: Aug 16, 2024 Billing Provider: JANEL RASMUSSEN Cardiology Common Codes: [id number] INP/OBS CARE (High) Cardiology Consultation Codes: [id number] CONSULT <45MIN JANEL RASMUSSEN [facility] Aug 16, 2024 11:38
[2024-08-16] MEDS: DIGOXIN (250MCG/ML) 2 ML AMPULE IV ONE (12:24)
[2024-08-16] MEDS: METOPROLOL TARTRATE 25 MG TAB PO ONE (12:25)
--- NOTE | 2024-08-16 14:38 | DVHPN2 ---
Progress Note - Dictate Date Seen: Aug 16, 2024 Medical Necessity Reason Pt with a Central, PICC or Fol: Yes The following are medically ne: PICC Line, Luis Catheter Reason for luis catheter: Strict I&O vital signs Vital Sign Date Time Temp Pulse Resp B/P (MAP) Pulse Ox O2 Delivery O2 Flow Rate FiO2 08/16/24 14:18 100 16 129/74 (92) 100 30 08/16/24 14:00 Mechanical Ventilator+ 08/16/24 12:00 99.2 99.2 Total Intake and Output 08/15/24 08/15/24 08/16/24 15:00 23:00 07:00 Intake Total 200.0 ml 735.0 ml 515.0 ml Output Total 325 ml 350 ml Balance 200.0 ml 410.0 ml 165.0 ml medications Current Medications Medications Dose Ordered Sig/Adam Route Start Time Stop Time Status Last Admin Dose Admin Docusate Sodium 100 mg BIDPRN PRN PO 07/28/24 13:30 Acetaminophen 650 mg Q6HP PRN PO 07/28/24 13:30 Nitroglycerin 0.4 mg Q5MINP PRN SL 07/28/24 13:30 Budesonide 0.5 mg BID NEB 07/28/24 22:00 08/16/24 06:02 0.5 MG Ipratropium [place] 0.5 mg Q4HPRN PRN NEB 07/29/24 12:45 08/05/24 04:10 0.5 MG Ipratropium [place] 0.5 mg Q4HR NEB 07/30/24 02:00 08/16/24 14:18 0.5 MG Norepinephrine Bitartrate 250 ml @ 3.75 mls/hr Q24H IV 08/02/24 13:30 08/03/24 09:50 3.75 MLS/HR Midazolam HCl 50 ml @ 1 mls/hr Q24H IV 08/02/24 13:30 08/16/24 12:05 10 MLS/HR Amiodarone HCl 200 mg Q12HR PO 08/03/24 22:00 08/16/24 08:26 200 MG Diagnostic Test (Pha) 1 strip Q6HR 08/03/24 18:00 08/16/24 11:52 1 STRIP Insulin Human Regular FOLLOW SLIDING SCALE Q6HR SC 08/03/24 18:00 08/16/24 11:54 2 UNITS Dextrose 50 ml UD IV 08/03/24 15:00 Doxycycline Hyclate 100 ml @ 50 mls/hr Q12HR IV 08/08/24 11:30 08/16/24 08:26 50 MLS/HR Lactulose 30 ml BID PO 08/08/24 22:00 08/15/24 21:41 30 ML Propofol 100 ml @ 3.09 mls/hr Q24H IV 08/09/24 17:30 08/13/24 01:03 3.09 MLS/HR Fentanyl Citrate 250 ml @ 2.5 mls/hr Q24H IV 08/12/24 09:30 08/16/24 12:07 20 MLS/HR Labetalol HCl 10 mg Q2HPRN PRN IV 08/12/24 20:45 08/13/24 12:40 10 MG Methylprednisolone Sodium Succinate 40 mg Q12HR IV 08/13/24 22:00 08/16/24 08:25 40 MG Sodium Chloride 10 ml QSHIFT@10,22 IV 08/14/24 22:00 08/16/24 08:25 10 ML Levalbuterol HCl 1.25 mg Q4HR NEB 08/14/24 22:00 08/16/24 14:18 1.25 MG Enteral Nutritional Formula 1,000 ml 40ML/HR GT 08/15/24 11:15 08/15/24 21:53 1,000 ML Metoprolol Tartrate 50 mg BID PO 08/16/24 22:00 laboratory and microbiology Laboratory Tests 08/16/24 05:04 Test 08/16/24 05:04 Range/Units Serum Glucose 119 H 74-106 mg/dL Assessment/Plan Impression Acute on chronic respiratory failure Acute COPD exacerbation Pneumonia Atelectasis Patient seen and examined in EDER Events On mechanical ventilation S/p trache PEEP 5, FiO2 30% drips amiodarone sedatives Labs and imaging reviewed ABG reviewed Management Vent support Titrate to maintain sats 90% or above Sedation holiday daily If patient follows commands, proceed to trache collar trials Continue antibiotics F/u cultures Bronchodilators Monitor renal function Monitor electrolytes Supplement as needed Pressors as needed for hemodynamic support To maintain a mean arterial pressure of 65 mmHg DVT prophylaxis Critical care time 35 minutes Dietary Evaluation Review Comments: 1) Ensure Enlive 240ml TID (ordered per ONS protocol) 2) MVI 1 tab daily 3) Continue current POC Expected Outcomes/Goals: To meet >75% estimated needs Fu 3-5 days Plan discussed with: Other (rn) MAURI LASSITER MD Aug 16, 2024 14:38
[2024-08-16] MEDS: METOPROLOL TARTRATE 50 MG TAB PO SCH (20:18)
[2024-08-16] MEDS: SACUBITRIL-VALSARTAN 24mg/26mg TAB PO SCH (20:18)
--- NOTE | 2024-08-16 22:14 | DVHINCON2 ---
Date Seen: Aug 16, 2024 Referring Physician MD Ivonne Reason for Consultation Afib RVR History of Present Illness This is a 68-year-old female with a past medical history of coronary artery disease status post PTCA x 1 JOCELYN, congestive heart failure, atrial fibrillation (on Eliquis and amiodarone), hypertension, myocardial infarction, CVA, type 2 diabetes mellitus, obstructive sleep apnea with CPAP use, COPD with home O2, and obesity who presented to the ED on 07/28 with complaints of worsening shortness of breath. During this admission, the patient was intubated for airway protection. Subsequently, she has undergone a tracheostomy placement on 08/14/2024. Cardiology has been consulted at this time for atrial fibrillation with rapid ventricular response. Initial twelve lead electrocardiogram reveals atrial fibrillation Q-waves seen in inferior leads. At the time of assessment, the patient remains in atrial fibrillation with uncontrolled rate. Initial troponin level of 104ng/L with a flat trend thereafter. At the time of assessment, the patient is chemically sedated and unable to answer questions. Spoke with patients daughter Jaquan for further history. The patient's daughter at bedside states that the patient follows up with a machine fastener at "[facility]". Past Medical History Past medical history reviewed. No other significant than mentioned above. Past Surgical History No previous surgeries per patient's daughter Family History: Diabetes mellitus G8 MOTHER Hypertension G8 MOTHER G8 FATHER Allergies: Coded Allergies: NO KNOWN ALLERGIES (Unverified , 02/21/19) Home Meds Active Scripts Apixaban Base (ELIQUIS) 5 Mg Tab, 5 MG PO BID, #60 TAB Prov:DIANA FRAUSTO MD 05/05/19 Prednisone (Prednisone) 20 Mg Tab, 20 MG PO BID, #10 MG Prov:DIANA FRAUSTO MD 05/05/19 Ipratropium [place] (Ipratropium [place]) 0.02 % [place], 0.5 MG NEB TID, #30 INH Prov:DIANA FRAUSOT MD 05/05/19 Albuterol Sulfate (Ventolin) 2.5 Mg/0.5 Ml Nb, 2.5 MG NEB TID, #30 INH Prov:DIANA FRAUSTO MD 05/05/19 Fluticasone-Salmeterol (Advair Diskus 250/50) 1 Puff Ih, 1 PUFF INH BID, #1 INHALER 0 Refills Prov:DIANA FRAUSTO MD 05/05/19 Reported Medications Metoprolol Succinate (Metoprolol Succinate Er) 25 Mg Tab, 1 TAB PO DAILY 08/12/24 Upadacitinib (Rinvoq) 15 Mg Tab, 1 TAB PO DAILY 07/28/24 Escitalopram Oxalate (ESCITALOPRAM OXALATE) 20 Mg Tab, 1 TAB PO DAILY 07/28/24 Atorvastatin Calcium (ATORVASTATIN CALCIUM) 80 Mg Tab, 1 TAB PO HS 07/28/24 Furosemide (Furosemide) 40 Mg Tab, 1 TAB PO DAILY 07/28/24 Amiodarone HCl (Amiodarone HCl) 200 Mg Tab, 1 TAB PO DAILY 07/28/24 Metoprolol Tartrate (LOPRESSOR TABLET) 50 Mg Tb, 1 TAB PO BID 07/28/24 Current Medications Current Medications Medications (Trade) Dose Ordered Sig/Adam Route PRN Reason Start Time Stop Time Status Last Admin Sodium Chloride 360 ml @ 30 mls/hr Q12H IV 08/15/24 17:15 08/16/24 12:01 DC 08/16/24 05:48 Metoprolol Tartrate (Lopressor Tablet) 50 mg BID PO 08/16/24 22:00 Sacubitril/ Valsartan (Entresto 24-26 Mg tab) 1 tab BID PO 08/16/24 22:00 UNV Review of Systems Constitutional: No symptom reported Ears, Nose, & Throat: No symptom reported Eyes: No symptom reported Neurological: No symptoms reported Pulmonary/Respiratory: Shortness of breath Cardiovascular: No symptom reported Gastrointestinal: No symptom reported Genitourinary: No symptom reported Musculoskeletal: No symptom reported Skin: No symptom reported Psychiatric: No symptom reported Endocrine: No symptom reported Hematologic/Lymphatic: No symptom reported Vital Signs Vital Signs Date Time Temp Pulse Resp B/P (MAP) Pulse Ox O2 Delivery O2 Flow Rate FiO2 08/16/24 14:30 95 17 139/77 (97) 100 08/16/24 14:18 30 08/16/24 14:00 Mechanical Ventilator+ 08/16/24 12:00 99.2 99.2 Physical Exam GENERAL: Ill appearing, intubated on ventilator. Obese. EYES: PERRL, EOMI. Anicteric. HENT: Moist mucous membranes. LUNGS: Decreased breath sounds. CARDIOVASCULAR: Irregular rate and rhythm. ABDOMEN: Soft, nontender and nondistended. EXTREMITIES: No edema. SKIN: Warm, dry. Labs/Diagnostic Data Labs Test 08/16/24 11:36 08/16/24 07:34 08/16/24 05:04 08/15/24 14:39 Range/Units POC Glucose 134 H 70-106 mg/dl Blood Gas Specimen Type Arterial Blood Gas Sample Site Right radial Blood Gas Patient Temperature 37.0 Arterial Blood Date Drawn [id number] Arterial Blood pH 7.489 H 7.350-7.450 Arterial Blood Partial Pressure CO2 33.4 32.0-45.0 mmHg Arterial Blood Partial Pressure O2 111.0 H 83.0-108.0 mmHg Arterial Blood HCO3 24.8 21.0-28.0 mmol/L Arterial Blood Oxygen Saturation 97.2 94.0-98.0 % Arterial Blood Base Excess 1.8 -2.0-3.0 mmol/L Arterial Blood Oxyhemoglobin 95.9 94.0-98.0 % Arterial Blood Carboxyhemoglobin 1.0 0.5-1.5 % Arterial Blood Methemoglobin 0.3 0.0-1.5 % Eamon Test Modified Blood Gas Total Hemoglobin 11.50 L 12.0-16.0 g/dL Blood Gas Set Respiration Rate 16.0 Blood Gas Modality Vent - ac FiO2 % 30.0 Blood Gas Tidal Volume 450.0 Blood Gas PEEP or CPAP 5.0 White Blood Count 10.9 H 4.4-10.8 10^3/uL Red Blood Count 3.70 L 4.0-5.20 10^6/uL Hemoglobin 10.7 L 12.2-16.2 g/dL Hematocrit 32.6 L 36.0-46.0 % Mean Corpuscular Volume 88.2 80.0-100.0 fL Mean Corpuscular Hemoglobin 29.1 28.0-32.0 pg Mean Corpuscular Hemoglobin Concent 33.0 32.0-36.0 g/dL Red Cell Distribution Width 17.7 H 11.8-14.3 % Platelet Count 60 L 140-450 10^3/uL Mean Platelet Volume 10.5 6.9-10.8 fL Neutrophils (%) (Auto) 37.0-80.0 % Lymphocytes (%) (Auto) 10.0-50.0 % Monocytes (%) (Auto) 0.0-12.0 % Basophils (%) (Auto) 0.0-2.0 % Neutrophils # (Auto) 1.6-8.6 10 ^3/uL Lymphocytes # (Auto) 0.4-5.4 10 ^3/uL Monocytes # (Auto) 0-1.3 10 ^3/uL Differential Total Cells Counted 100.0 100 Neutrophils % (Manual) 97 H 37.0-80.0 Band Neutrophils % (Manual) 0 Lymphocytes % (Manual) 1 L 10.0-50.0 Monocytes % (Manual) 2 0-12 Eosinophils % (Manual) 0 0-7 Basophils % (Manual) 0 0.0-2.0 Metamyelocytes % (manual) 0 Myelocytes % (Manual) 0 Promyelocytes % (Manual) 0 Blast Cells % (Manual) 0 Reactive Lymphocytes 0 Platelet Estimate Decreased Ovalocytes Few Schistocytes Few Sodium Level 142 136-145 mmol/L Potassium Level 3.9 3.5-5.1 mmol/L Chloride Level 105 98-107 mmol/L Carbon Dioxide Level 28 20-31 mmol/L Anion Gap 9 5-15 Blood Urea Nitrogen 41 H 9-23 mg/dL Creatinine 0.93 0.550-1.02 mg/dL Glomerular Filtration Rate Calc 67 >90 mL/min BUN/Creatinine Ratio 44.1 H 10.0-20.0 Serum Glucose 119 H 74-106 mg/dL Calcium Level 9.7 8.7-10.4 mg/dL Magnesium Level 2.5 1.6-2.6 mg/dL Total Bilirubin 0.7 0.2-1.0 mg/dL Aspartate Amino Transferase (AST) 129 H <34 U/L Alanine Aminotransferase (ALT) 120 H 7-40 U/L Alkaline Phosphatase 70 46-116 U/L B-Type Natriuretic Peptide 70.75 0-100 pg/mL Total Protein 5.2 L 5.7-8.2 g/dL Albumin 3.5 3.2-4.8 g/dL Thyroid Stimulating Hormone (TSH) 0.55 0.55-4.78 uIU/mL Blood Gas Critical Value Read Back Yes Blood Gas Notified Whom Marcelino winn md Blood Gas Notified Time [id number] Blood Gas Notified By Kimmy perera radiology teacher Test 08/14/24 04:59 08/12/24 04:40 08/10/24 06:56 08/09/24 09:06 Range/Units Prothrombin Time 12.1 H 9.3-11.8 sec Prothrombin Time INR 1.16 H 0.9-1.15 Activated Partial Thromboplast Time 20.2 L 24.5-34.5 SEC Eosinophils (%) (Auto) 0.0 0.0-7.0 % Eosinophils # (Auto) 0 0-0.8 10 ^3/uL Basophils # (Auto) 0 0-0.2 10 ^3/uL Nucleated Red Blood Cells 0.1 % Phosphorus Level 4.4 2.4-5.1 mg/dL Blood Gas Spontaneous Rate 18 Specimen Drawn By Lay [facility] Blood Gas Pressure Support 8 Test 08/08/24 07:43 08/08/24 04:30 08/07/24 08:44 08/06/24 04:45 Range/Units Blood Gas Liter Flow 60.00 Blood Gas Spontaneous Tidal Volume 505 Random Vancomycin Level 18.8 H 5-10 ug/mL Blood Gas Inspiratory Pressure 28.0 Triglycerides Level 84 < 150 mg/dL Test 08/02/24 10:24 07/30/24 12:35 07/28/24 11:09 07/28/24 08:35 Range/Units Blood Gas EPAP 5 Blood Gas IPAP 12 Urine Color Colorless Yellow Urine Clarity Clear Clear Urine pH 5.5 5.0-9.0 Urine Specific [place] 1.007 1.001-1.035 Urine Protein Negative Negative Urine Ketones Negative Negative Urine Blood 2+ H Negative /uL Urine Nitrite Negative Negative Urine Bilirubin Negative Negative Urine Urobilinogen Normal Negative mg/dL Urine Leukocyte Esterase Negative Negative /uL Urine RBC 21 0 - 4 /hpf Urine Microscopic WBC 3 0-5 /HPF Urine Squamous Epithelial Cells Few <5 /hpf Urine Bacteria Few H None Seen /hpf Urine Hyaline Casts Few 0 - 2 /lpf Urine Mucus Few None Seen Urine Glucose Normal Normal mg/dL Troponin I High Sensitivity 123 *H </=34 ng/L Lactic Acid Level 1.5 0.4-2.0 mmol/L Microbiology Date/Time Source Procedure Growth Status 08/11/24 06:45 Urine - [place] Urine Culture - Final Presumptive Kelle albicans Complete 08/02/24 16:50 Sputum Gram Stain - Final Complete 08/02/24 16:50 Sputum Respiratory Culture - Final Complete 07/30/24 04:23 Nose MRSA Screen - Final Complete 07/28/24 08:46 Blood Blood Culture - Final NO GROWTH AFTER 5 DAYS OF INCUBATION. Complete Assessment Atrial fibrillation with rapid ventricular response (on Eliquis and amiodarone at home). Acute on chronic HFrEF, NYHA class IV. Coronary artery disease status post PTCA X 1 JOCELYN. Mild mitral regurgitation. Hypertension. History myocardial infarction. Acute hypoxic respiratory failure status post tracheostomy. COPD. Obstructive sleep apnea with CPAP use. Thrombocytopenia. History of CVA. Acute kidney injury, resolved. Transaminitis. Morbid obesity. Plan/Recommendation I agree with your ongoing assessment and care of plan. Patient has been seen by Romelia Trejo NP on my behalf, her and I discussed the plan with the patient. Transthoracic echocardiogram reveals EF 35-40%. Initiate guideline directed medical therapy for CHF as tolerated by renal function. Add MRA and SGLT2i with stable renal function. Stop Cardizem as this is contraindicated in patients with a reduced EF. [id number] VASc score: 5 points, HAS-BLED score: 3 points. Continue with beta-cherise for rate control. Patient currently off anticoagulation given thrombocytopenia; SCD's in the meantime. Restart NOAC when appropriate. Continue antiarrhythmic agent, amiodarone. Loading dose digoxin. Monitor and replete electrolytes as needed, keep potassium greater than four and magnesium greater than two. Close Cardiac surveillance. Additional plan as per the hospital course. Plan discussed with: Other NYHA Physical activity limitations: Class4(Severe)discomfort Date of Service: Aug 16, 2024 Billing Provider: SHANNON LANE MD Cardiology Common Codes: 02780-[id number] INP/OBS CARE (High) Cardiology Consultation Codes: [id number] CONSULT <45MIN SHANNON LANE MD Aug 16, 2024 14:48
--- NOTE | 2024-09-03 13:35 | DVHDS2 ---
Discharge Summary Date of Admission Jul 28, 2024 at 13:21 Date of Discharge: Aug 16, 2024 Labs/Diagnostic Data: Laboratory Results Test 08/16/24 17:22 08/16/24 07:34 08/16/24 05:04 08/15/24 14:39 POC Glucose 105 mg/dl (70-106) Blood Gas Specimen Type Arterial Blood Gas Sample Site Right radial Blood Gas Patient Temperature 37.0 Arterial Blood Date Drawn [id number] Arterial Blood pH 7.489 (7.350-7.450) Arterial Blood Partial Pressure CO2 33.4 mmHg (32.0-45.0) Arterial Blood Partial Pressure O2 111.0 mmHg (83.0-108.0) Arterial Blood HCO3 24.8 mmol/L (21.0-28.0) Arterial Blood Oxygen Saturation 97.2 % (94.0-98.0) Arterial Blood Base Excess 1.8 mmol/L (-2.0-3.0) Arterial Blood Oxyhemoglobin 95.9 % (94.0-98.0) Arterial Blood Carboxyhemoglobin 1.0 % (0.5-1.5) Arterial Blood Methemoglobin 0.3 % (0.0-1.5) Eamon Test Modified Blood Gas Total Hemoglobin 11.50 g/dL (12.0-16.0) Blood Gas Set Respiration Rate 16.0 Blood Gas Modality Vent - ac FiO2 % 30.0 Blood Gas Tidal Volume 450.0 Blood Gas PEEP or CPAP 5.0 White Blood Count 10.9 10^3/uL (4.4-10.8) Red Blood Count 3.70 10^6/uL (4.0-5.20) Hemoglobin 10.7 g/dL (12.2-16.2) Hematocrit 32.6 % (36.0-46.0) Mean Corpuscular Volume 88.2 fL (80.0-100.0) Mean Corpuscular Hemoglobin 29.1 pg (28.0-32.0) Mean Corpuscular Hemoglobin Concent 33.0 g/dL (32.0-36.0) Red Cell Distribution Width 17.7 % (11.8-14.3) Platelet Count 60 10^3/uL (140-450) Mean Platelet Volume 10.5 fL (6.9-10.8) Neutrophils (%) (Auto) % (37.0-80.0) Lymphocytes (%) (Auto) % (10.0-50.0) Monocytes (%) (Auto) % (0.0-12.0) Basophils (%) (Auto) % (0.0-2.0) Neutrophils # (Auto) 10 ^3/uL (1.6-8.6) Lymphocytes # (Auto) 10 ^3/uL (0.4-5.4) Monocytes # (Auto) 10 ^3/uL (0-1.3) Differential Total Cells Counted 100.0 (100) Neutrophils % (Manual) 97 (37.0-80.0) Band Neutrophils % (Manual) 0 Lymphocytes % (Manual) 1 (10.0-50.0) Monocytes % (Manual) 2 (0-12) Eosinophils % (Manual) 0 (0-7) Basophils % (Manual) 0 (0.0-2.0) Metamyelocytes % (manual) 0 Myelocytes % (Manual) 0 Promyelocytes % (Manual) 0 Blast Cells % (Manual) 0 Reactive Lymphocytes 0 Platelet Estimate Decreased Ovalocytes Few Schistocytes Few Sodium Level 142 mmol/L (136-145) Potassium Level 3.9 mmol/L (3.5-5.1) Chloride Level 105 mmol/L (98-107) Carbon Dioxide Level 28 mmol/L (20-31) Anion Gap 9 (5-15) Blood Urea Nitrogen 41 mg/dL (9-23) Creatinine 0.93 mg/dL (0.550-1.02) Glomerular Filtration Rate Calc 67 mL/min (>90) BUN/Creatinine Ratio 44.1 (10.0-20.0) Serum Glucose 119 mg/dL (74-106) Calcium Level 9.7 mg/dL (8.7-10.4) Magnesium Level 2.5 mg/dL (1.6-2.6) Total Bilirubin 0.7 mg/dL (0.2-1.0) Aspartate Amino Transferase (AST) 129 U/L (<34) Alanine Aminotransferase (ALT) 120 U/L (7-40) Alkaline Phosphatase 70 U/L (46-116) B-Type Natriuretic Peptide 70.75 pg/mL (0-100) Total Protein 5.2 g/dL (5.7-8.2) Albumin 3.5 g/dL (3.2-4.8) Thyroid Stimulating Hormone (TSH) 0.55 uIU/mL (0.55-4.78) Blood Gas Critical Value Read Back Yes Blood Gas Notified Whom Marcelino winn md Blood Gas Notified Time [id number] Blood Gas Notified By Kimmy perera apparel manufacture instructor Test 08/14/24 04:59 08/12/24 04:40 08/10/24 06:56 08/09/24 09:06 Prothrombin Time 12.1 sec (9.3-11.8) Prothrombin Time INR 1.16 (0.9-1.15) Activated Partial Thromboplast Time 20.2 SEC (24.5-34.5) Eosinophils (%) (Auto) 0.0 % (0.0-7.0) Eosinophils # (Auto) 0 10 ^3/uL (0-0.8) Basophils # (Auto) 0 10 ^3/uL (0-0.2) Nucleated Red Blood Cells 0.1 % Phosphorus Level 4.4 mg/dL (2.4-5.1) Blood Gas Spontaneous Rate 18 Specimen Drawn By Lay [facility] Blood Gas Pressure Support 8 Test 08/08/24 07:43 08/08/24 04:30 08/07/24 08:44 08/06/24 04:45 Blood Gas Liter Flow 60.00 Blood Gas Spontaneous Tidal Volume 505 Random Vancomycin Level 18.8 ug/mL (5-10) Blood Gas Inspiratory Pressure 28.0 Triglycerides Level 84 mg/dL (< 150) Test 08/02/24 10:24 07/30/24 12:35 07/28/24 11:09 07/28/24 08:35 Blood Gas EPAP 5 Blood Gas IPAP 12 Urine Color Colorless (Yellow) Urine Clarity Clear (Clear) Urine pH 5.5 (5.0-9.0) Urine Specific [place] 1.007 (1.001-1.035) Urine Protein Negative (Negative) Urine Ketones Negative (Negative) Urine Blood 2+ /uL (Negative) Urine Nitrite Negative (Negative) Urine Bilirubin Negative (Negative) Urine Urobilinogen Normal mg/dL (Negative) Urine Leukocyte Esterase Negative /uL (Negative) Urine RBC 21 /hpf (0 - 4) Urine Microscopic WBC 3 /HPF (0-5) Urine Squamous Epithelial Cells Few /hpf (<5) Urine Bacteria Few /hpf (None Seen) Urine Hyaline Casts Few /lpf (0 - 2) Urine Mucus Few (None Seen) Urine Glucose Normal mg/dL (Normal) Troponin I High Sensitivity 123 ng/L (</=34) Lactic Acid Level 1.5 mmol/L (0.4-2.0) Other Laboratory Tests 08/16/24 05:04 Brief Hx & Hospital Course: Mell Salinas is a 68-year-old female with past medial history of COPD, home oxygen, asthma, atrial fibrillation, CVA December 2023, hypertension, and hyperlipidemia, who came to the hospital for shortness of breath. Patient had a stroke in December of 2023. She states since then she has been hospitalized multiple times. She states 3 times in the last couple of months for difficulty breathing. Patient states she does follow outpatient with a adjunct instructor chemistry, and she is compliant with her medications, but she has not been able to get her breathing better. On assessment patient has audible rales, with shortness of breath, difficulty with speaking, and accessory muscle use. #1 acute on chronic resp failure: on acv , cpap trial- failed, dw daughter- s/p trach #2 ?pneumonia- gram positive/neg: doxy, CT CHEST- copd #3 htn #4 dm: ssi #5 a fib with rvr with secondary hypercoagulable state: cardizem drip, amiodarone, lopressor #6 morbid obesity #7 acute on chronic systolic/diastolic heart failure: dc lasix iv #8 acute renal failure ?vasomotor nephropathy: resolved #9 nutrition: tube feedings #10 thrombocytopenia: improved, hold xarelto #11 RA long discussion with daughter- explained plan of care advance care planning- full code- time spent 19 mins discharged to [place] Condition at Discharge: Stable Final Diagnosis/Problems List see above Discharge Disposition: Acute Care Facility Discharge Instruct/Medications Diet: See Comment Diet comment: NPO Activity: Bed rest Scheduled Albuterol Sulfate (Ventolin), 2.5 MG NEB TID Amiodarone HCl (Amiodarone HCl), 1 TAB PO DAILY, (Reported) Apixaban Base (Eliquis), 5 MG PO BID Atorvastatin Calcium (Atorvastatin Calcium), 1 TAB PO HS, (Reported) Escitalopram Oxalate (Escitalopram Oxalate), 1 TAB PO DAILY, (Reported) Fluticasone-Salmeterol (Advair Diskus 250/50), 1 PUFF INH BID Furosemide (Furosemide), 1 TAB PO DAILY, (Reported) Ipratropium [place] (Ipratropium [place]), 0.5 MG NEB TID Metoprolol Succinate (Metoprolol Succinate Er), 1 TAB PO DAILY, (Reported) Metoprolol Tartrate (Lopressor Tablet), 1 TAB PO BID, (Reported) Prednisone (Prednisone), 20 MG PO BID Upadacitinib (Rinvoq), 1 TAB PO DAILY, (Reported) Discharge Statement: "Patient was advised to return to the ER or call 911 if any headaches, dizziness, shortness of breath, chest pain, abdominal pain, bleeding, fevers, or worsening of medical condition. Patient was counseled about treatment plan, medications, possible side effects, patientverbalized understanding. All questions were answered to the best of my ability. This discharge took greater then 30 minutes in planning, reviewing documentation, counseling the patient, and discussing with other team members." ASSESSMENT ASSESSMENT Assessment Date of Service: Aug 16, 2024 Billing Provider: ILDEFONSO BENJAMIN DO Common Visit Codes: [id number] CARE 30-74 MIN ILDEFONSO BENJAMIN DO Sep 03, 2024 13:35
== END 2024-08-16 21:58 | DRG 4 ==
LOC: EDBD 08:03 → ER 08:03 → OVERFLOW 13:21 → DOU IN ICU 07-30 04:15 → ICU CENTRL 08-03 04:05
PROVIDERS: ADMIT Internal Medicine; ATTEND Internal Medicine
PROC: 5A09357 Assistance with Respiratory Ventilation, Less than 24 Consecutive Hours, Continuous Positive Airway Pressure (ICD-10-PCS; 2024-07-28)
PROC: 5A09357 Assistance with Respiratory Ventilation, Less than 24 Consecutive Hours, Continuous Positive Airway Pressure (ICD-10-PCS; 2024-07-29)
PROC: 05HC33Z Insertion of Infusion Device into Left Basilic Vein, Percutaneous Approach (ICD-10-PCS; 2024-07-30)
PROC: B54NZZA Ultrasonography of Left Upper Extremity Veins, Guidance (ICD-10-PCS; 2024-07-30)
PROC: 5A09357 Assistance with Respiratory Ventilation, Less than 24 Consecutive Hours, Continuous Positive Airway Pressure (ICD-10-PCS; 2024-07-30)
PROC: 5A09357 Assistance with Respiratory Ventilation, Less than 24 Consecutive Hours, Continuous Positive Airway Pressure (ICD-10-PCS; 2024-07-31)
PROC: 5A09357 Assistance with Respiratory Ventilation, Less than 24 Consecutive Hours, Continuous Positive Airway Pressure (ICD-10-PCS; 2024-08-01)
PROC: 5A1955Z Respiratory Ventilation, Greater than 96 Consecutive Hours (ICD-10-PCS; principal; 2024-08-02)
PROC: 0BH17EZ Insertion of Endotracheal Airway into Trachea, Via Natural or Artificial Opening (ICD-10-PCS; 2024-08-02)
PROC: 02HV33Z Insertion of Infusion Device into Superior Vena Cava, Percutaneous Approach (ICD-10-PCS; 2024-08-02)
PROC: B548ZZA Ultrasonography of Superior Vena Cava, Guidance (ICD-10-PCS; 2024-08-02)
PROC: 5A09357 Assistance with Respiratory Ventilation, Less than 24 Consecutive Hours, Continuous Positive Airway Pressure (ICD-10-PCS; 2024-08-02)
PROC: 0B110F4 Bypass Trachea to Cutaneous with Tracheostomy Device, Open Approach (ICD-10-PCS; 2024-08-14)
PROC: 02HV33Z Insertion of Infusion Device into Superior Vena Cava, Percutaneous Approach (ICD-10-PCS; 2024-08-14)
PROC: B548ZZA Ultrasonography of Superior Vena Cava, Guidance (ICD-10-PCS; 2024-08-14)
DX: J96.21 Acute and chronic respiratory failure with hypoxia (principal); I50.43 Acute on chronic combined systolic (congestive) and diastolic (congestive) heart failure; I21.A1 Myocardial infarction type 2; J15.69 Pneumonia due to other Gram-negative bacteria; J15.9 Unspecified bacterial pneumonia; N17.0 Acute kidney failure with tubular necrosis; I13.0 Hypertensive heart and chronic kidney disease with heart failure and stage 1 through stage 4 chronic kidney disease, or unspecified chronic kidney disease; J44.1 Chronic obstructive pulmonary disease with (acute) exacerbation; J44.0 Chronic obstructive pulmonary disease with (acute) lower respiratory infection; E87.3 Alkalosis; D68.69 Other thrombophilia; Z99.11 Dependence on respirator [ventilator] status; E78.5 Hyperlipidemia, unspecified; I48.91 Unspecified atrial fibrillation; N18.30 Chronic kidney disease, stage 3 unspecified; E86.1 Hypovolemia; E11.65 Type 2 diabetes mellitus with hyperglycemia; E11.22 Type 2 diabetes mellitus with diabetic chronic kidney disease; I25.10 Atherosclerotic heart disease of native coronary artery without angina pectoris; D69.6 Thrombocytopenia, unspecified; E66.01 Morbid (severe) obesity due to excess calories; M06.9 Rheumatoid arthritis, unspecified; R74.01 Elevation of levels of liver transaminase levels; G47.33 Obstructive sleep apnea (adult) (pediatric); I34.0 Nonrheumatic mitral (valve) insufficiency; Z90.49 Acquired absence of other specified parts of digestive tract; Z98.891 History of uterine scar from previous surgery; Z86.73 Personal history of transient ischemic attack (TIA), and cerebral infarction without residual deficits; Z82.49 Family history of ischemic heart disease and other diseases of the circulatory system; Z83.3 Family history of diabetes mellitus; Z79.01 Long term (current) use of anticoagulants; Z68.36 Body mass index [BMI] 36.0-36.9, adult; Z79.84 Long term (current) use of oral hypoglycemic drugs; Z95.5 Presence of coronary angioplasty implant and graft
CPT/HCPCS: 36415; 36556; 36569; 36600; 71045; 71250; 76775; 76937; 80048; 80053; 80202; 81001; 82805; 82962; 83605; 83735; 83880; 84100; 84443; 84478; 84484; 85007; 85025; 85027; 85610; 85730; 86850; 86900; 86901; 87040; 87070; 87081; 87086; 87088; 87205; 93005; 93306; 94002; 94003; 94640; 94660; 96365; 96372; 96375; 99291; G0378; J1100; J1815; J2003; J2250; J2405; J2543; J2704; J3480; J3490